=== PATIENT | female | born 1940 | race Caucasian/White ===

== ENCOUNTER → 2019-08-10 12:09 | Outpatient (ROUT) | payer MEDICARE, SELFPAY | PROVIDERS: Visit Provider Internal Medicine | DX: N39.0 Urinary tract infection, site not specified (principal) | CPT/HCPCS: 87086 ==

== ENCOUNTER → 2019-11-22 09:56 | Outpatient (CLI) | payer MEDICARE, SELFPAY ==
--- NOTE | 2019-11-22 10:02 | DI.RAD.S_ITS ---
PROCEDURE: XR FOOT LT MIN 3V INDICATIONS: Lt Foot Pain TECHNIQUE: 3 views of the foot were acquired. COMPARISON: None. FINDINGS: Bones: No fractures or dislocations. No suspicious bony lesions. Soft tissues: No tibiotalar joint effusion. Achilles tendon appears normal. 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 Dictated by: Damon Roberts M.D. on 11/22/2019 at 10:23 Approved by: Damon Roberts M.D. on 11/22/2019 at 10:24
== END ==
PROVIDERS: PCP Internal Medicine; Referring Provider Family Medicine; Visit Provider Family Medicine
DX: M79.672 Pain in left foot (principal); M77.42 Metatarsalgia, left foot; M21.172 Varus deformity, not elsewhere classified, left ankle; M20.12 Hallux valgus (acquired), left foot; M21.612 Bunion of left foot; M19.072 Primary osteoarthritis, left ankle and foot
CPT/HCPCS: 73630

== ENCOUNTER → 2020-01-07 15:18 | Outpatient (CLI) | payer MEDICARE, SELFPAY ==
--- NOTE | 2020-01-07 | DI.MG.S_ITS ---
BILATERAL DIGITAL SCREENING MAMMOGRAM 3D/2D WITH CAD: 01/07/2020 CLINICAL: Routine screening. Comparison is made to exams dated: 05/14/2015 mammogram and 05/10/2014 mammogram - outside location. The tissue of both breasts is predominantly fatty. Current study was also evaluated with a Computer Aided Detection (CAD) system. No significant masses, calcifications, or other findings are seen in either breast. There has been no significant interval change. IMPRESSION: NEGATIVE There is no mammographic evidence of malignancy. A 1 year screening mammogram is recommended. This exam was interpreted at Station ID: [id number]. NOTE: For mammograms, a report in lay terms will be sent to the patient. Approximately 15% of breast malignancies will not be visualized mammographically. In the management of a palpable breast mass, a negative mammogram must not discourage biopsy of a clinically suspicious lesion. Electronically Signed By: Rm Poe M.D., jr/dequan:01/07/2020 16:17:28 letter sent: Normal Exam ACR BI-RADS Category 1: Negative [id number]
== END ==
PROVIDERS: PCP Internal Medicine; Referring Provider Internal Medicine; Visit Provider Internal Medicine
DX: Z12.31 Encounter for screening mammogram for malignant neoplasm of breast (principal); M85.851 Other specified disorders of bone density and structure, right thigh; Z78.0 Asymptomatic menopausal state
CPT/HCPCS: 77063; 77067; 77080

== ENCOUNTER → 2020-06-05 08:35 | Outpatient (CLI) | payer MEDICARE, SELFPAY ==
--- NOTE | 2020-06-05 | DI.RAD.S_ITS ---
PROCEDURE: FL UPPER GI SERIES INDICATIONS: Dysphagia, unspecified COMPARISON: None. 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 No suspicious abdominal calcifications. Visualized solid organ contours appear normal. Bony structures appear unremarkable. Esophagus: Esophageal mucosa is normal on air-contrast views. On single-contrast views, there or numerous spontaneous episodes of tertiary contractions resulting in delayed and retrograde flow of ingested oral contrast. No strictures or extrinsic mass effects. Suggestion of possible small traction diverticulum near the level of the aortic arch in the mid esophagus. Small sliding hiatal hernia. No elicited gastroesophageal reflux. There is normal transit of a calibrated barium tablet through the esophagus. Stomach: The stomach is normally distensible, with normal rugal fold thickness. No mucosal masses or ulcers. Pylorus and duodenal bulb appear normal in morphology. Duodenal folds are normal in thickness as well. IMPRESSION: 1. Multiple spontaneous episodes of tertiary contractions resulting in delayed as well as retrograde flow of ingested contrast. 2. Suggestion of possible small traction esophageal diverticulum in the mid esophagus. No evidence for esophageal strictures or mass lesions. Consider further evaluation with endoscopy. 3. No elicited gastroesophageal reflux. 4. Small sliding hiatal hernia. Dictated by: Blayne Baez M.D. on 06/05/2020 at 15:04 Approved by: Blayne Baez M.D. on 06/05/2020 at 15:08
== END ==
PROVIDERS: PCP Internal Medicine; Referring Provider Internal Medicine; Visit Provider Internal Medicine
DX: R13.10 Dysphagia, unspecified (principal); K44.9 Diaphragmatic hernia without obstruction or gangrene
CPT/HCPCS: 74246

== ENCOUNTER → 2020-09-01 19:27 | Outpatient (ROUT) | payer MEDICARE, SELFPAY ==
[2020-09-01 19:58] LABS: Aspartate Aminotransferase 37 IU/L (14-36); BUN Creatinine Ratio 33.3 (6-22); Blood Urea Nitrogen 24 mg/dL (7-17); Calcium 10.5 mg/dL (8.4-10.2); Carbon Dioxide 26 mmol/L (22-32); Chloride 106 mmol/L (98-107); Cholesterol 164 mg/dL (140-199); Estimated Glomerular Filt Rate > 60.0 mL/min (>60); Glucose 109 mg/dL (80-110); HDL Cholesterol 52 mg/dL (40-60); HEMOLYSIS < 15 (0-50); LDL Cholesterol Calculated 89 mg/dL (<100); Potassium 4.2 mmol/L (3.4-5.1); Sodium 139 mmol/L (137-145); Triglycerides 113 mg/dL (35-150)
== END ==
PROVIDERS: PCP Internal Medicine; Visit Provider Internal Medicine
DX: E78.2 Mixed hyperlipidemia (principal)
CPT/HCPCS: 80048; 80061; 84450

== ENCOUNTER → 2021-12-25 08:48 | Outpatient (CLI) | payer MEDICARE, SELFPAY ==
[2021-12-25 09:56] LABS: Hematocrit 37.5 % (36-46); Hemoglobin 12.6 g/dL (12.0-16.0); Mean Corpuscular HGB Conc 33.6 % (30-36); Mean Corpuscular Hemoglobin 31.4 PG (26-34); Mean Corpuscular Volume 93.2 fL (80-100); Platelet Count 240 X10^3/uL (150-400); Red Blood Cell Count 4.02 X10^6/uL (4.0-5.2); Red Cell Distribution Width 14.1 % (11.6-14.8); White Blood Cell Count 6.1 X10^3/uL (4.5-11.0)
[2021-12-25 10:36] LABS: Alanine Aminotransferase 21 IU/L (<35); Albumin 4.2 g/dL (3.5-5.0); Albumin Globulin Ratio 1.5 (1.0-2.8); Alkaline Phosphatase 132 U/L (38-126); Aspartate Aminotransferase 25 IU/L (14-36); BUN Creatinine Ratio 31.1 (6-22); Bilirubin Total 0.5 mg/dL (0.2-1.3); Blood Urea Nitrogen 23 mg/dL (7-17); Calcium 9.1 mg/dL (8.4-10.2); Carbon Dioxide 26 mmol/L (22-32); Chloride 105 mmol/L (98-107); Cholesterol 255 mg/dL (140-199); Estimated Glomerular Filt Rate > 60 mL/min (>60); Globulin 2.8 g/dL (1.7-4.1); Glucose 108 mg/dL (80-110); HDL Cholesterol 59 mg/dL (40-60); HEMOLYSIS < 15 (0-50); LDL Cholesterol Calculated 181 mg/dL (<100); Potassium 3.9 mmol/L (3.4-5.1); Sodium 139 mmol/L (137-145); Triglycerides 74 mg/dL (35-150)
[2021-12-25 10:53] LABS: Vitamin D 25 Hydroxy (D3) 54.7 ng/mL (30.0-100.0)
[2021-12-25 10:59] LABS: TSH w/ Reflex to FT4 1.67 uIU/mL (0.47-4.68)
== END ==
PROVIDERS: PCP Internal Medicine; Referring Provider Internal Medicine; Visit Provider Internal Medicine
DX: E78.2 Mixed hyperlipidemia (principal); M85.80 Other specified disorders of bone density and structure, unspecified site
CPT/HCPCS: 36415; 80053; 80061; 82306; 84443; 85027

== ENCOUNTER → 2022-12-24 10:48 | Outpatient (CLI) | payer OTHER, SELFPAY ==
--- NOTE | 2022-12-24 10:49 | DI.CT.S_ITS ---
PROCEDURE: CT HEAD/BRAIN WO CON INDICATIONS: cognitive impairment TECHNIQUE: Noncontrast 4.5 mm thick angled axial sections acquired from the foramen magnum to the vertex, with coronal and sagittal reformats. For radiation dose reduction, the following was used: automated exposure control, adjustment of mA and/or kV according to patient size. COMPARISON: None. FINDINGS: Image quality: Excellent. CSF spaces: Basal cisterns are patent. No extra-axial fluid collections. The ventricles are symmetric in size and shape. Brain: No intracranial bleeds or masses. There is cerebral volume loss for age, with resultant ventricular and sulcal prominence. There are periventricular and deep white matter chronic small vessel ischemic changes. Mild infarcts can be seen involving the right basal ganglia and right deep white matter. There is intracranial internal carotid artery atherosclerosis. Skull and face: Calvarium and visualized facial bones appear intact, without suspicious lesions. Incidental note is made of hyperostosis frontalis. This is not considered to be pathologic in a woman of this age. Sinuses: Visualized sinuses and mastoids are clear. IMPRESSION: Note is made of age-appropriate brain parenchymal volume loss and chronic small vessel ischemic changes. 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 Dictated by: Pepito Gómez M.D. on 12/24/2022 at 11:01 Approved by: Pepito Gómez M.D. on 12/24/2022 at 11:02
== END ==
PROVIDERS: PCP Internal Medicine; Referring Provider Internal Medicine; Visit Provider Internal Medicine
DX: R41.0 Disorientation, unspecified (principal); I67.9 Cerebrovascular disease, unspecified; G31.84 Mild cognitive impairment of uncertain or unknown etiology
CPT/HCPCS: 70450

== ENCOUNTER 2023-02-10 13:40 | Emergency (ER) | payer OTHER, SELFPAY ==
[2023-02-10 13:44] VITALS: BP 185/85; PULSE 81; RESP 16; O2SAT 99
[2023-02-10 13:50] VITALS: TEMP 36.6
--- NOTE | 2023-02-10 14:04 | ED_ITS ---
HPI - General Adult General Chief complaint: Altered Mental Status Stated complaint: GLF Time Seen by Provider: 02/10/23 13:45 Source: family () and EMS Mode of arrival: EMS Limitations: other (Dementia) History of Present Illness HPI narrative: Patient is an 82-year-old female has a history of dementia. Patient's states that yesterday she fell out in front of their house. He states that she thinks that she tripped and fell. She was ambulatory afterwards. Had no complaints. A dinner last night without any issues. Slept last night without any issues. Woke up this morning and was fine. A breakfast. Did have some bruising in the right side of her face. He stated that she was sitting in her chair when he went to go stand her up and he stated that she was unresponsive. Would not stand up on her own. This is why he contacted EMS. Here in the emergency department the patient has no specific complaints. She is at her baseline neurologic status. Related Data Home Medications Medication Instructions Recorded Confirmed ascorbic acid (vitamin C) 1,000 mg 1,000 mg PO BID 12/21/21 12/22/22 tablet cholecalciferol (vitamin D3) 125 125 mcg PO Q OTHER DAY 12/21/21 12/22/22 mcg (5,000 unit) capsule coenzyme Q10 100 mg capsule 100 mg PO DAILY 12/21/21 12/22/22 (CoQ-10) cyanocobalamin (vitamin B-12) 1,000 mcg PO DAILY 12/21/21 12/22/22 1,000 mcg capsule ginkgo biloba 1 cap PO BID 12/21/21 12/22/22 lysine 500 mg tablet 500 mg PO DAILY 12/21/21 12/22/22 magnesium citrate 100 mg capsule 400 mg PO DAILY 12/21/21 12/22/22 omega-3 fatty acids 1,000 mg 1,000 mg PO DAILY 12/21/21 12/22/22 capsule selenium 200 mcg tablet 200 mcg PO DAILY 12/21/21 12/22/22 tolterodine 4 mg capsule,extended 4 mg PO DAILY 12/21/21 12/22/22 release 24 hr tumeric 1 cap PO DAILY 12/21/21 12/22/22 vit C 250 mg-vit E 90 mg-zinc 40 1 tab PO BID 12/21/21 12/22/22 mg-copper 1 [id number]-[id number] capsule (PreserVision AREDS-2) zinc 50 mg tablet 50 mg PO DAILY 12/21/21 12/22/22 Previous Rx's Medication Instructions Recorded estradiol 0.01% (0.1 mg/gram) 1 g vaginal 2XW #42.5 grams 12/21/21 vaginal cream omeprazole 20 mg capsule,delayed 20 mg PO DAILY #90 caps 12/21/21 release Allergies Allergy/AdvReac Type Severity Reaction Status Date / Time Penicillins Allergy Severe Anaphylaxis Verified 12/22/22 10:50 Tetanus Vaccines and Toxoid Allergy Severe Anaphylaxis Verified 12/22/22 10:50 morphine Allergy Mild rash Verified 12/22/22 10:50 Review of Systems Review of Systems Narrative: Somewhat limited given the patient's history of dementia Constitutional Comments: Denies headache Cardiovascular Comments: Denies chest pain Respiratory Comments: Denies shortness of breath Gastrointestinal Comments: Denies abdominal pain Musculoskeletal Comments: Denies pain in the arms or legs Patient History Medical History Mild cognitive impairment Elevated blood pressure reading without diagnosis of hypertension Urinary incontinence Menopausal syndrome Osteopenia GERD without esophagitis Mixed hyperlipidemia Social History details: (Christopher), two sons, 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 Smoking Status: Never smoker Smoking Status: Never smoker Substance Use Type: does not use Exam Initial Vital Signs Initial Vital Signs: Vital Signs Pulse Rate 81 02/10/23 13:44 Respiratory Rate 16 02/10/23 13:44 Blood Pressure 185/85 H 02/10/23 13:44 Pulse Oximetry 99 02/10/23 13:44 Oxygen Delivery Method Room Air 02/10/23 13:44 Const General: comfortable and No ill appearing HENMT Face and sinus: ecchymosis on the right and no lacerations Resp Effort & Inspection: normal respiratory effort Cardio Rate: regular rate GI Inspection: normal to inspection and non-distended Palpation: soft Skin Other: Bruising to the right side of the face. Neuro Other: Patient is alert to person and place but does not know the year Extrem Other: No gross deformities. Patient appears to have no discomfort with movement of the upper and lower extremities. Course Orders Ordered: ED Orders 02/10/23 14:04 CT cervical spine wo con Stat CT facial bones wo con Stat CT head/brain wo con Stat Vital Signs Vital signs: Vital Signs - 8 hr 02/10/23 13:44 02/10/23 13:50 Temperature 97.9 F Pulse Rate 81 Respiratory Rate 16 Blood Pressure 185/85 H Pulse Oximetry 99 Oxygen Delivery Method Room Air Medical Decision Making Imaging Data CT scan - head: Radiologist's Impression: PROCEDURE: CT HEAD/BRAIN WO CON INDICATIONS: Fall with history of dementia TECHNIQUE: Noncontrast 4.5 mm thick angled axial sections acquired from the foramen magnum to the vertex, with coronal and sagittal reformats. For radiation dose reduction, the following was used: automated exposure control, adjustment of mA and/or kV according to patient size. COMPARISON: [facility], CT, CT HEAD/BRAIN WO CON, 12/24/2022, 11:08. FINDINGS: Image quality: Excellent. CSF spaces: Basal cisterns are patent. No extra-axial fluid collections. The ventricles are symmetric in size and shape. Brain: No intracranial bleeds or masses. There is cerebral volume loss for a ge, with resultant ventricular and sulcal prominence. There are moderate to severe periventricular and deep white matter chronic small vessel ischemic changes. Right basal ganglia lacunar infarctions. There is intracranial internal carotid artery atherosclerosis. Skull and face: Calvarium and visualized facial bones appear intact, without suspicious lesions. Sinuses: Visualized sinuses and mastoids are clear. IMPRESSION: 1. No acute intracranial process. 2. Moderate to severe small vessel ischemic change and old basal ganglia infarcts. CT face: Radiologist's Impression: PROCEDURE: CT FACIAL BONES WO CON INDICATIONS: Fall with right-sided facial contusions TECHNIQUE: Noncontrast 2.5 mm thick axial images acquired from the mandible through the frontal sinuses, with coronal and sagittal reformatting. For radiation dose reduction, the following was used: automated exposure control, adjustment of mA and/or kV according to patient size. COMPARISON: None. FINDINGS: Image quality: Patient motion artifact. Bones and teeth: Orbital palmer are intact. Sinus palmer show no fracture or deformity. Nasal bones and septum are intact. Visualized portions of the mandible demonstrate no fractures or subluxation. Zygomatic arches are intact. Pterygoid plates are intact. Visualized portions of the skull base and auditory canals are intact. Sinuses: Remote extensive paranasal sinus surgery with bilateral medial nasal antral windows, middle turbinate resections, and subtotal bilateral ethmoidectomies. Paranasal sinuses are aerated, without fluid levels, mucosal thickening, or mucoceles. Mastoid air cells are aerated. Soft tissues: No edema, masses, or fluid collections. No enlarged lymph nodes. No soft tissue lacerations or debris. Vascular: Visualized vascular structures appear normal in the absence of contrast. Bony vascular foramina and canals are intact. IMPRESSION: Patient motion artifact is present. There are no facial bone fractures or mandibular fractures identified. CT - cervical spine: Radiologist's Impression: PROCEDURE: CT CERVICAL SPINE WO CON INDICATIONS: Fall with history of dementia TECHNIQUE: Noncontrast 3 mm thick sections acquired from the skull base to the T4 level. Sagittal and coronal reformats were then constructed. For radiation dose reduction, the following was used: automated exposure control, adjustment of mA and/or kV according to patient size. COMPARISON: None. FINDINGS: Image quality: Excellent. Bones: No fractures or dislocations. Visualized superior ribs are intact. Cervical spondylosis. Soft tissues: Prevertebral soft tissues are normal in thickness. No paravertebral hematomas. No apical pneumothoraces. IMPRESSION: No acute cervical fracture or dislocation. MDM Narrative Medical decision making narrative: Patient does have contusion of the right side of her face. CT scans are unremarkable. She is no apparent discomfort with movement of the arms and legs. I did have a discussion with her regarding avoidance of falling. No indication to change any medications. Will discharge patient home. Discharge Plan Departure Patient Disposition: Home Clinical Impression: Contusion of face Instructions: How to Prevent Falls Activity Restrictions/Additional Instructions: Zehra can continue to take all of her medications as directed. She can return to the emergency department for any new or worsening symptoms Prescriptions: No Action tolterodine 4 mg capsule,extended release 24hr 4 mg PO DAILY lysine 500 mg tablet 500 mg PO DAILY omega-3 fatty acids 1,000 mg capsule 1,000 mg PO DAILY zinc 50 mg tablet 50 mg PO DAILY selenium 200 mcg tablet 200 mcg PO DAILY cyanocobalamin (vitamin B-12) 1,000 mcg capsule 1,000 mcg PO DAILY PreserVision AREDS-2 250-90-40-1 mg capsule 1 tab PO BID tumeric 1 cap PO DAILY ascorbic acid (vitamin C) 1,000 mg tablet 1,000 mg PO BID cholecalciferol (vitamin D3) 125 mcg (5,000 unit) capsule 125 mcg PO Q OTHER DAY coenzyme Q10 [CoQ-10] 100 mg capsule 100 mg PO DAILY ginkgo biloba 1 cap PO BID magnesium citrate 100 mg capsule 400 mg PO DAILY estradiol 0.01 % (0.1 mg/gram) cream 1 g vaginal 2XW Qty: 42.5 3RF omeprazole 20 mg capsule,delayed release(DR/EC) 20 mg PO DAILY Qty: 90 3RF Referrals: Curt Enriquez MD [Primary Care Provider] - Stand Alone Forms: Patient Portal/API
== END 2023-02-10 15:43 | disposition home or self-care (01) ==
PROVIDERS: Emergency Provider Emergency Medicine; PCP Internal Medicine
DX: S00.83XA Contusion of other part of head, initial encounter (principal); W01.0XXA Fall on same level from slipping, tripping and stumbling without subsequent striking against object, initial encounter; F03.90 Unspecified dementia, unspecified severity, without behavioral disturbance, psychotic disturbance, mood disturbance, and anxiety
CPT/HCPCS: 70450; 70486; 72125; 99281; 99284

== ENCOUNTER → 2023-03-09 10:34 | Outpatient (CLI) | payer OTHER, SELFPAY ==
[2023-03-09 12:26] LABS: Vitamin B12 931 pg/mL (239-931)
== END ==
PROVIDERS: PCP Internal Medicine; Referring Provider Internal Medicine; Visit Provider Internal Medicine
DX: E53.8 Deficiency of other specified B group vitamins (principal)
CPT/HCPCS: 36415; 82607

== ENCOUNTER 2024-05-06 12:00 | Emergency (ER) | payer MEDICARE, SELFPAY ==
[2024-05-06] VITALS (17 sets, daily range): BP systolic 136–190; BP diastolic 65–93; PULSE 70–95; RESP 14–29; TEMP 36.1; O2SAT 92–100
--- NOTE | 2024-05-06 12:23 | DI.RAD.S_ITS ---
PROCEDURE: XR CHEST 1V INDICATIONS: chest pain TECHNIQUE: One view of the chest was acquired. COMPARISON: None. FINDINGS: Surgical changes and devices: None. Lungs and pleura: The patient is rotated. Lungs are clear. No pleural effusions or pneumothorax. Mediastinum: Hiatal hernia. Heart size is normal. Bones and chest wall: No suspicious bony lesions. Overlying soft tissues appear unremarkable. IMPRESSION: No acute cardiopulmonary abnormality is seen. Dictated by: Steven Poe M.D. on 05/06/2024 at 12:06 Approved by: Steven Poe M.D. on 05/06/2024 at 12:07
--- NOTE | 2024-05-06 12:23 | EKG_ITS ---
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
--- NOTE | 2024-05-06 13:20 | DI.CT.S_ITS ---
PROCEDURE: CT ANGIO HEAD AND NECK INDICATIONS: resolved unresponsiveness episode, resolved TECHNIQUE: After the administration of intravenous contrast, 1 mm thick sections acquired from the aortic arch through the Eek of Means. 3-dimensional lmiobip-jsdayixgk-khgxdkzbqk (MIP) and/or volume rendering reformats were acquired of the central intracranial vasculature and neck separately. For radiation dose reduction, the following was used: automated exposure control, adjustment of mA and/or kV according to patient size. COMPARISON: None. FINDINGS: Image quality: Diagnostic. BRAIN: CSF spaces: Ventricles are normal in size and shape. Basal cisterns are patent. No extra-axial fluid collections. Brain: No significant abnormality of the brain can be seen. Skull and face: Calvarium and facial bones appear intact, without suspicious lesions. Orbits appear normal. Sinuses: Sinuses and mastoids are clear. HEAD CT ANGIOGRAPHY: Anterior circulation: Intracranial internal carotid arteries are normal in size and flow. The flow within the paired anterior cerebral arteries is normal and symmetric. The flow within the middle cerebral arteries is normal and symmetric. The anterior communicating artery is seen. No aneurysms are seen. Posterior circulation: Visualized portions of the vertebral arteries demonstrate normal caliber, and join to form a normal appearing basilar artery. Flow within the posterior cerebral arteries is normal and symmetric. No aneurysms are seen. NECK CT ANGIOGRAPHY: Carotid system: The great vessels demonstrate a conventional anatomy as they arise from the aortic arch. The origins of the common carotid arteries appear patent. The common carotid arteries demonstrate normal caliber and courses. The bifurcation regions are both widely patent. The internal carotid arteries demonstrate normal calibers and courses. Posterior circulation: The origins of the vertebral arteries both appear widely patent. The more superior extracranial portions of both vertebral arteries also demonstrate normal courses and calibers. They join to form a normal appearing basilar artery. Soft tissues: Visualized neck soft tissues demonstrate no suspicious abnormalities. Bones: No suspicious bony lesions. Visualized cervical spine appears normally aligned. IMPRESSION: No significant intracranial arterial abnormality is seen. No significant abnormality is seen within the arteries of the neck. Any quantitative measurements of stenosis were performed using NASCET criteria. Dictated by: Steven Poe M.D. on 05/06/2024 at 14:04 Approved by: Steven Poe M.D. on 05/06/2024 at 14:06
--- NOTE | 2024-05-06 13:20 | PC.NURSE ---
Pt's reported that patient has baseline confusion d/t dementia and has had decreased ambulation at home. Today she was sitting up in a chair looking outside. Her endorses pt having her eyes half closed and not responding. He tried to get her attention and states nothing was going on. He called and she was evaluated at home. A fingerstick blood sugar was obtained but does not recall what the result was. When arrived pt was responsive and back to her baseline. Pt continues to act at her baseline while in department. She does state It feels weird. Just not right. She has no chest pain. No SOB. No nausea. No abdominal pain. She had a fall last week per spouse.
--- NOTE | 2024-05-06 13:20 | DI.CT.S_ITS ---
PROCEDURE: CT HEAD/BRAIN WO CON INDICATIONS: alt MSE, better, ?TIA TECHNIQUE: Noncontrast 4.5 mm thick angled axial sections acquired from the foramen magnum to the vertex, with coronal and sagittal reformats. For radiation dose reduction, the following was used: automated exposure control, adjustment of mA and/or kV according to patient size. COMPARISON: [facility], CT, CT HEAD/BRAIN WO CON, 02/10/2023, 14:11. FINDINGS: Image quality: Diagnostic. CSF spaces: Basal cisterns are patent. No extra-axial fluid collections. Ventricles are normal in size and shape. Brain: No midline shift. No intracranial masses or hemorrhage. Diffuse parenchymal volume loss with expansion of the CSF containing spaces. Multiple periventricular white matter hypodensities consistent with chronic microvascular ischemic disease. Oscar-white matter interface is normal. Sequela of remote left occipital lobe stroke with changes of encephalomalacia, new from 2022 Skull and face: Calvarium and visualized facial bones are intact, without suspicious lesions. Sinuses: Visualized sinuses and mastoids are clear. IMPRESSION: No intracranial hemorrhage. Left occipital encephalomalacia consistent with remote stroke Sequela of microvascular ischemic disease. Dictated by: Steven Poe M.D. on 05/06/2024 at 14:00 Approved by: Steven Poe M.D. on 05/06/2024 at 14:04
--- NOTE | 2024-05-06 13:26 | ED_ITS ---
HPI - General Adult General Chief complaint: Syncope Stated complaint: Eval after 9-11 called this am; bearly breathing Time Seen by Provider: 05/06/24 12:23 Source: patient and family Mode of arrival: Wheelchair History of Present Illness HPI narrative: (history predominantly from Christopher Powers at bedside) 83-year-old female with history of dementia, lives at home with , last known well about 11:00 a.m. this morning, when left her sitting near the window in a chair, briefly left the area then returned to see her in the opposite chair at same table near the window, but seemed slumped in position, no obvious trauma/fall heard or suspected, tried to gently awakened patient who seemed unresponsive, he called 911, EMS arrived and checked sugar, no sugar given oral/IV, she was back to her baseline by/before time of EMS arrival, was not transported by EMS. Arrived by private vehicle, driven by for further evaluation. No shaking activity, history of seizures known, incontinence of urine or stool at the time of episode though has happened in the past. not sure if patient had any prior stroke. Patient takes no blood thinners, no antiplatelets. Related Data Home Medications Medication Instructions Recorded Confirmed ascorbic acid (vitamin C) 1,000 mg 1,000 mg PO BID 12/21/21 05/25/23 tablet cholecalciferol (vitamin D3) 125 125 mcg PO Q OTHER DAY 12/21/21 05/25/23 mcg (5,000 unit) capsule coenzyme Q10 100 mg capsule 100 mg PO DAILY 12/21/21 05/25/23 (CoQ-10) cyanocobalamin (vitamin B-12) 1,000 mcg PO DAILY 12/21/21 05/25/23 1,000 mcg capsule ginkgo biloba 1 cap PO BID 12/21/21 05/25/23 lysine 500 mg tablet 500 mg PO DAILY 12/21/21 05/25/23 magnesium citrate 100 mg capsule 400 mg PO DAILY 12/21/21 05/25/23 omega-3 fatty acids 1,000 mg 1,000 mg PO DAILY 12/21/21 05/25/23 capsule selenium 200 mcg tablet 200 mcg PO DAILY 12/21/21 05/25/23 vit C 250 mg-vit E 90 mg-zinc 40 1 tab PO BID 12/21/21 05/25/23 mg-copper 1 iz-wuowyo-agomsr capsule (PreserVision AREDS-2) zinc 50 mg tablet 50 mg PO DAILY 12/21/21 05/25/23 turmeric 1 cap PO DAILY 03/09/23 05/25/23 Previous Rx's Medication Instructions Recorded omeprazole 20 mg capsule,delayed 20 mg PO DAILY #90 caps 12/21/21 release Disabled Parking Permit 1 ea Not Applicable DAILY #1 ea 05/25/23 cefdinir 300 mg capsule 300 mg PO BID 10 days #20 caps 05/06/24 cefdinir 300 mg capsule 300 mg PO BID 7 days #14 caps 05/06/24 Allergies Allergy/AdvReac Type Severity Reaction Status Date / Time Penicillins Allergy Severe Anaphylaxis Verified 05/25/23 07:43 Tetanus Vaccines and Toxoid Allergy Severe Anaphylaxis Verified 05/25/23 07:43 morphine Allergy Mild rash Verified 05/25/23 07:43 Patient History Medical History 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 HEAD: Atraumatic. Normocephalic. EYES: Pupils equal round and reactive. Extraocular motions intact. No scleral icterus. No injection or drainage. ENT: Nose without bleeding, purulent drainage. Throat without erythema, tonsillar hypertrophy or exudate. Airway patent. NECK: Trachea midline. Non tender CARDIOVASCULAR: Regular rate and rhythm without murmurs, gallops, or rubs. RESPIRATORY: Clear to auscultation. Breath sounds equal bilaterally. No wheezes, rales, or rhonchi. GASTROINTESTINAL: Abdomen soft, non-tender, nondistended. EXTREMITIES: No edema or joint tenderness. BACK: Nontender without deformity or crepitance. No flank tenderness. NEURO: AOx3. folder and notcher intact. Motor 5/5 upper and lower extermities. Some rambling answers to questions but generally quite clear speech and cooperative, with frequent smiling. at bedside states that patient seems at her baseline MSE. SKIN: No rash or erythema of visible areas Initial Vital Signs Initial Vital Signs: Vital Signs Temperature 97.0 F L 05/06/24 12:10 Pulse Rate 75 05/06/24 12:10 Respiratory Rate 16 05/06/24 12:10 Blood Pressure 149/72 H 05/06/24 12:10 Pulse Oximetry 98 05/06/24 12:10 Oxygen Delivery Method Room Air 05/06/24 12:10 Course Orders Ordered: ED Orders 05/06/24 13:15 Complete Blood Count AUTO DIFF Stat Comprehensive Metabolic Panel Stat Lipase Stat Magnesium Stat NT-proBNP (BNP-Adult 18+) Stat PTT Partial Thromboplastin Dhruv Stat Prothrombin Time INR Stat Troponin & CK Cardiac Panel Stat 05/06/24 13:20 CT angio head and neck Stat CT head/brain wo con Stat 05/06/24 14:18 Urinalysis and Microscopic Stat Urine Culture Stat 05/06/24 16:00 Troponin I Stat Discontinued Medications Aspirin (Aspirin 81 Mg Chew Tab) 324 mg PO NOW ONE Stop: 05/06/24 12:24 Last Admin: 05/06/24 13:34 Dose: Not Given Documented By: JEANETTE Aspirin (Aspirin 81 Mg Chew Tab) 324 mg PO NOW ONE Stop: 05/06/24 16:40 Last Admin: 05/06/24 17:09 Dose: 324 mg Documented By: JEANETTE Cefdinir (Cefdinir 300 Mg Capsule) 300 mg PO NOW ONE Stop: 05/06/24 15:00 Last Admin: 05/06/24 15:16 Dose: 300 mg Documented By: JEANETTE Vital Signs Vital signs: Vital Signs - 8 hr 05/06/24 14:06 05/06/24 14:22 05/06/24 14:22 Pulse Rate 70 72 Respiratory Rate 14 19 Blood Pressure 159/80 H Pulse Oximetry 92 97 Oxygen Delivery Method 05/06/24 14:30 05/06/24 14:30 05/06/24 15:00 Pulse Rate 70 Respiratory Rate 19 Blood Pressure 168/79 H 184/81 H Pulse Oximetry 100 Oxygen Delivery Method Room Air 05/06/24 15:00 05/06/24 15:30 05/06/24 15:31 Pulse Rate 72 76 Respiratory Rate 18 Blood Pressure 190/84 H Pulse Oximetry 99 Oxygen Delivery Method 05/06/24 15:31 05/06/24 16:00 05/06/24 16:30 Pulse Rate 74 83 86 Respiratory Rate 24 14 21 Blood Pressure Pulse Oximetry 95 Oxygen Delivery Method 05/06/24 17:00 05/06/24 17:29 Pulse Rate 89 95 H Respiratory Rate 16 Blood Pressure 158/93 H Pulse Oximetry 98 Oxygen Delivery Method Room Air Medical Decision Making Lab Data Lab results reviewed: Yes I reviewed the patient's lab results. Lab results narrative: White blood cell count 8600, hemoglobin 13.2, platelets adequate. Glucose 144. BUN 22 with creatinine 0.95. Electrolytes unremarkable. Serum CO2 normal. Liver functions unremarkable. BNP not elevated. Troponin negative/unmeasurable. 05/06/24 13:15 05/06/24 13:15 Labs: Lab Results 05/06/24 05/06/24 05/06/24 Range/Units 13:15 14:18 16:00 WBC 8.6 (4.5-11.0) X10^3/uL RBC 4.28 (4.0-5.2) X10^6/uL Hgb 13.2 (12.0-16.0) g/dL Hct 40.0 (36-46) % MCV 93.4 (80-100) fL MCH 30.9 (26-34) PG MCHC 33.1 (30-36) % RDW 14.1 (11.6-14.8) % Plt Count 262 (150-400) X10^3/uL Neut % (Auto) 67.9 (50-75) % Lymph % (Auto) 23.2 L (25-40) % [place] % (Auto) 8.1 (3-14) % Eos % (Auto) 0.4 L (2-4) % Baso % (Auto) 0.4 (0-2) % Neut # (Auto) 5800 (5940-0571) /uL Lymph # (Auto) 2000 (2084-5192) /uL [place] # (Auto) 700 (0-900) /uL Eos # (Auto) 0 (0-450) /uL Baso # (Auto) 0 (0-100) /uL PT 11.4 (9.4-12.5) SECONDS INR 1.0 (0.9-1.3) APTT 28 (25.1-36.5) SECONDS Sodium 139 (137-145) mmol/L Potassium 3.9 (3.4-5.1) mmol/L Chloride 107 (98-107) mmol/L Carbon Dioxide 23 (22-32) mmol/L BUN 22 H (7-17) mg/dL Creatinine 0.95 (0.52-1.04) mg/dL Estimated GFR 59 L (>60) mL/min BUN/Creatinine Ratio 23.2 H (6-22) Glucose 144 H (80-110) mg/dL Calcium 9.7 (8.4-10.2) mg/dL Magnesium 2.0 (1.6-2.3) mg/dL Total Bilirubin 0.6 (0.2-1.3) mg/dL AST 35 (14-36) IU/L ALT 33 (<35) IU/L Alkaline Phosphatase 91 (38-126) U/L Total Creatine Kinase 39 (30-135) U/L Troponin I < 0.012 < 0.012 (0.01-0.034) ng/mL NT-Pro-B Natriuret Pep 117 (<450) pg/mL Total Protein 7.1 (6.3-8.2) g/dL Albumin 4.2 (3.5-5.0) g/dL Globulin 2.9 (1.7-4.1) g/dL Albumin/Globulin Ratio 1.4 (1.0-2.8) Lipase 80 (23-300) U/L Urine Color Yellow Urine Appearance Cloudy Urine pH 6.0 (4.5-8.0) Ur Specific [place] 1.015 (1.000-1.035) Urine Protein Negative (Negative) Urine Glucose (UA) Negative (Negative) g/dL Urine Ketones Negative (NEGATIVE) Urine Occult Blood Negative (Negative) Urine Nitrate Positive H (Negative) Urine Bilirubin Negative (NEGATIVE) Urine Urobilinogen 0.2 (0.2) E.U./dL Ur Leukocyte Esterase Trace H (NEGATIVE) Urine RBC None seen (0-5/HPF) Urine WBC 5-10/hpf H (0-5/HPF) Ur Squamous Epith Cells 1-5 /hpf (0-5/HPF) Urine Bacteria Many (>30) H (None) Ur Culture Indicated? Specimen cultured Vol Urine Centrifuged 10ml (spun) Imaging Data Chest x-ray: Radiologist's Impression: Close Head CT (Signed) Steven Poe 05/06/24 Head/Neck CTA (Signed) Steven Poe - 05/06/24 Chest X-Ray (Signed) Steven Poe - 05/06/24 Launch?Image [address] [address] XRay Report Signed Patient: Zehra Schumacher MR#: [id number] : 1940 Acct:[id number] Age/Sex: 83 / F Date of Service: 05/06/24 Loc: ED Accession Number: [id number] Procedure: XR chest 1V Ordering Provider: Orlin Paige MD PROCEDURE: XR CHEST 1V INDICATIONS: chest pain TECHNIQUE: One view of the chest was acquired. COMPARISON: None. FINDINGS: Surgical changes and devices: None. Lungs and pleura: The patient is rotated. Lungs are clear. No pleural effusions or pneumothorax. Mediastinum: Hiatal hernia. Heart size is normal. Bones and chest wall: No suspicious bony lesions. Overlying soft tissues appear unremarkable. IMPRESSION: No acute cardiopulmonary abnormality is seen. Dictated by: Steven Poe M.D. on 05/06/2024 at 12:06 Approved by: Steven Poe M.D. on 05/06/2024 at 12:07 CT scan - head: Radiologist's Impression: [address] [address] [address] Scan Report Signed Patient: Zehra Schumacher MR#: [id number] : 1940 Acct:[id number] Age/Sex: 83 / F Date of Service: 05/06/24 Loc: ED Accession Number: [id number] Procedure: CT head/brain wo con Ordering Provider: Orlin Paige MD PROCEDURE: CT HEAD/BRAIN WO CON INDICATIONS: alt MSE, better, ?TIA TECHNIQUE: Noncontrast 4.5 mm thick angled axial sections acquired from the foramen magnum to the vertex, with coronal and sagittal reformats. For radiation dose reduction, the following was used: automated exposure control, adjustment of mA and/or kV according to patient size. COMPARISON: [facility], CT, CT HEAD/BRAIN WO CON, 02/10/2023, 14:11. FINDINGS: Image quality: Diagnostic. CSF spaces: Basal cisterns are patent. No extra-axial fluid collections. Ventricles are normal in size and shape. Brain: No midline shift. No intracranial masses or hemorrhage. Diffuse parenchymal volume loss with expansion of the CSF containing spaces. Multiple periventricular white matter hypodensities consistent with chronic microvascular ischemic disease. Oscar-white matter interface is normal. Sequela of remote left occipital lobe stroke with changes of encephalomalacia, new from 2022 Skull and face: Calvarium and visualized facial bones are intact, without suspicious lesions. Sinuses: Visualized sinuses and mastoids are clear. IMPRESSION: No intracranial hemorrhage. Left occipital encephalomalacia consistent with remote stroke Sequela of microvascular ischemic disease. Dictated by: Steven Poe M.D. on 05/06/2024 at 14:00 Approved by: Steven Poe M.D. on 05/06/2024 at 14:04 CTA - brain/neck: Radiologist's Impression: Close Head CT (Signed) Steven Poe - 05/06/24 Head/Neck CTA (Signed) Steven Poe - 05/06/24 Chest X-Ray (Signed) Steven Poe - 05/06/24 [place] [address] CT Scan Report Signed Patient: Zehra Schumacher MR#: [id number] : 1940 Acct:[id number] Age/Sex: 83 / F Date of Service: 05/06/24 Loc: ED Accession Number: [id number] Procedure: CT angio head and neck Ordering Provider: Orlin Paige MD PROCEDURE: CT ANGIO HEAD AND NECK INDICATIONS: resolved unresponsiveness episode, resolved TECHNIQUE: After the administration of intravenous contrast, 1 mm thick sections acquired from the aortic arch through the [place] of Means. 3-dimensional jjbrvun-sgxmnkmra-poczobjokm (MIP) and/or volume rendering reformats were acquired of the central intracranial vasculature and neck separately. For radiation dose reduction, the following was used: automated exposure control, adjustment of mA and/or kV according to patient size. COMPARISON: None. FINDINGS: Image quality: Diagnostic. BRAIN: CSF spaces: Ventricles are normal in size and shape. Basal cisterns are patent. No extra-axial fluid collections. Brain: No significant abnormality of the brain can be seen. Skull and face: Calvarium and facial bones appear intact, without suspicious lesions. Orbits appear normal. Sinuses: Sinuses and mastoids are clear. HEAD CT ANGIOGRAPHY: Anterior circulation: Intracranial internal carotid arteries are normal in size and flow. The flow within the paired anterior cerebral arteries is normal and symmetric. The flow within the middle cerebral arteries is normal and symmetric. The anterior communicating artery is seen. No aneurysms are seen. Posterior circulation: Visualized portions of the vertebral arteries demonstrate normal caliber, and join to form a normal appearing basilar artery. Flow within the posterior cerebral arteries is normal and symmetric. No aneurysms are seen. NECK CT ANGIOGRAPHY: Carotid system: The great vessels demonstrate a conventional anatomy as they arise from the aortic arch. The origins of the common carotid arteries appear patent. The common carotid arteries demonstrate normal caliber and courses. The bifurcation regions are both widely patent. The internal carotid arteries demonstrate normal calibers and courses. Posterior circulation: The origins of the vertebral arteries both appear widely patent. The more superior extracranial portions of both vertebral arteries also demonstrate normal courses and calibers. They join to form a normal appearing basilar artery. Soft tissues: Visualized neck soft tissues demonstrate no suspicious abnormalities. Bones: No suspicious bony lesions. Visualized cervical spine appears normally aligned. IMPRESSION: No significant intracranial arterial abnormality is seen. No significant abnormality is seen within the arteries of the neck. Any quantitative measurements of stenosis were performed using NASCET criteria. Dictated by: Steven Poe M.D. on 05/06/2024 at 14:04 Approved by: Steven Poe M.D. on 05/06/2024 at 14:06 ECG Data Attestation: I personally reviewed and interpreted this ECG as follows: Interpretation: Normal sinus rhythm with rate of 75. No obvious ST segment elevation or depression changes, some motion artifact however noted in multiple leads. [place] 186, QRS 72, QTC 406. MDM Narrative Medical decision making narrative: 83-year-old female with history of dementia, had a few minutes of unresponsiveness at home per , who states that patient seems back to her baseline mental status by/before EMS arrival. Afebrile, sirs screen negative. Alert and cooperative and quite pleasant, somewhat random speech, that states is her baseline. Nonfocal neuro exam otherwise. Glucose normal. Screening labs pending. Discussed workup with patient/, they would like to proceed with CT imaging. CT head noncontrast study ordered, CTA head and neck vessels ordered if GFR favorable. Labs pending. DDx consider TIA, transient bradyarhythmia/tachyarhythmia, hypoglycemia, atypical seizure, other. Renal function adequate. CTA head and neck vessels, CT head noncontrast, studies to be performed. EKG without obvious ischemic changes, some motion artifact. Troponin negative. Screening serum labs otherwise unremarkable. Urinalysis shows inflammatory infectious changes, presence of many bacteria, urine culture ordered per protocol. History of penicillin allergy. can not recall details of penicillin allergy. Not obviously known to to have tolerance or problems with cephalosporins. We discussed Cipro/Levaquin antibiotics, possible side effects of fluoroquinolones, avoid for now. He would like to try a 3rd generation cephalosporin when we discussed options, oral dose cefdinir given, prescription sent for 7 day course. Patient observed further for interval 2nd troponin, also negative. No obvious reaction to oral cephalosporin. CT head study showed old encephalomalacia changes. See radiology report. CT angiogram head and neck vessels, without thrombosis or significant narrowing, no dissection changes. See radiology report. Consider admission and/or further workup for possible TIA/syncopal episode of unclear etiology. Workup might include telemetry monitoring overnight, echocardiogram, MRI brain. MRI of the brain not available today Tuesday, but could be obtained tomorrow if patient admitted overnight for example. Discussion with patient/family. declines for now, declines admission. Further workup as an outpatient for now. Home with family. Prescription for further oral antibiotics cefdinir sent to her pharmacy. Return precautions discussed. Discharge Plan Departure Patient Disposition: Home Clinical Impression: Episode of syncope, Urinary tract infection, History of dementia Instructions: DI for Syncope in Adults (Fainting), DI for Urinary Tract Infection (UTI) Activity Restrictions/Additional Instructions: Ms. Schumacher, You had brief episode of unresponsiveness today of unclear cause, reported by your earlier this afternoon, EMS responded but no transport at that time, arriving having been driven by her , resolved symptoms at the time of EMS arrival. Screening labs here unremarkable. History of dementia noted, reportedly back to baseline. EKG and blood testing not suggestive of heart attack. Electrolytes unremarkable. No obvious facial or other trauma from today on examination. CT scanning head without contrast showed an old area of encephalomalacia that might have happened from an old stroke at some point in the past, but no acute changes, per Radiology report. It is possible to have a new stroke with negative CT scan of the brain, sometimes only seen on repeat MRI of the brain. However there is no MRI available at this time this Tuesday weekend day here. CT angiogram of the head and neck vessels showed no acute changes, no blockages, no narrowing of the vessels requiring any interventions, per Radiology report. Urinalysis suspicious for infection. We did discuss various antibiotic choices. History of penicillin allergy with unclear remote reaction. We discussed ciprofloxacin/levofloxacin antibiotics but they can cause tendon problems, confusion, mental status changes, we will avoid that fluoroquinolones class of antibiotics for now. Loss of resistance known to sulfa type antibiotics. We will give oral cefdinir antibiotic for now, a 3rd generation cephalosporin, less likely to have cross reaction with persons having penicillin allergies, though this is possible. First dose of cefdinir antibiotic given in the emergency department, further course of antibiotic sent to your pharmacy. Take antibiotics as directed. Drink plenty of fluids. We did discuss further workup of your transient unresponsiveness episode. This could represent pre stroke/mini stroke, also called a transient ischemic attack. Symptoms might have also happened from a transient cardiac event, such as a slow or racing heart rate, though nothing was noticed abnormal about the rate or rhythm during multiple hours observed here in the emergency department. You could have further observation such as cardiac heart telemetry monitoring overnight observation in the hospital, echocardiogram ultrasound of your heart, MRI of the brain not available now but would be available tomorrow. Admission and all these potential studies were declined for now. No blood thinners or antiplatelets at this time. Consider oral aspirin once daily for now. First dose given in the emergency department. Cyia-uws-aamkmrz aspirin can be taken 1 tablet daily. This is intended to hopefully help prevent future stroke problems. Your and you felt that you would not want further testing as an inpatient for now. Consider further observation and testing as an outpatient as needed for now. Consider recheck of symptoms with your regular doctor in the next 2 days, and also to check results of urine culture sent today. Return to this/nearest emergency department for any change worsening symptoms or any concerns prior. Take your other chronic medications as directed. Thank you for letting our team take care of you today. Prescriptions: New cefdinir 300 mg capsule 300 mg PO BID 10 Days Qty: 20 0RF cefdinir 300 mg capsule 300 mg PO BID 7 Days Qty: 14 0RF No Action lysine 500 mg tablet 500 mg PO DAILY omega-3 fatty acids 1,000 mg capsule 1,000 mg PO DAILY zinc 50 mg tablet 50 mg PO DAILY selenium 200 mcg tablet 200 mcg PO DAILY cyanocobalamin (vitamin B-12) 1,000 mcg capsule 1,000 mcg PO DAILY PreserVision AREDS-2 250-90-40-1 mg capsule 1 tab PO BID ascorbic acid (vitamin C) 1,000 mg tablet 1,000 mg PO BID cholecalciferol (vitamin D3) 125 mcg (5,000 unit) capsule 125 mcg PO Q OTHER DAY coenzyme Q10 [CoQ-10] 100 mg capsule 100 mg PO DAILY ginkgo biloba 1 cap PO BID magnesium citrate 100 mg capsule 400 mg PO DAILY omeprazole 20 mg capsule,delayed release(DR/EC) 20 mg PO DAILY Qty: 90 3RF turmeric 1 cap PO DAILY Disabled Parking Permit 1 ea Not Applicable DAILY Qty: 1 0RF Referrals: Crut Enriquez MD [Primary Care Provider] - Stand Alone Forms: Patient Portal/API/Survey
[2024-05-06 13:28] LABS: Add Manual Diff / Slide Review NO; Basophils Absolute Auto 0 /uL (0-100); Basophils Percent Auto 0.4 % (0-2); Eosinophils Absolute Auto 0 /uL (0-450); Eosinophils Percent Auto 0.4 % (2-4); Hemoglobin 13.2 g/dL (12.0-16.0); Lymphocytes Absolute Auto 2000 /uL (1100-4500); Lymphocytes Percent Auto 23.2 % (25-40); Mean Corpuscular HGB Conc 33.1 % (30-36); Mean Corpuscular Hemoglobin 30.9 PG (26-34); Mean Corpuscular Volume 93.4 fL (80-100); Monocytes Absolute Auto 700 /uL (0-900); Monocytes Percent Auto 8.1 % (3-14); Neutrophils Absolute Auto 5800 /uL (1500-7000); Neutrophils Percent Auto 67.9 % (50-75); Platelet Count 262 X10^3/uL (150-400); Red Blood Cell Count 4.28 X10^6/uL (4.0-5.2); Red Cell Distribution Width 14.1 % (11.6-14.8); White Blood Cell Count 8.6 X10^3/uL (4.5-11.0)
[2024-05-06 13:36] LABS: Prothrombin Time 11.4 SECONDS (9.4-12.5)
[2024-05-06 13:39] LABS: PTT Partial Thromboplastin Tim 28 SECONDS (25.1-36.5)
[2024-05-06 13:41] LABS: Alanine Aminotransferase 33 IU/L (<35); Albumin 4.2 g/dL (3.5-5.0); Albumin Globulin Ratio 1.4 (1.0-2.8); Alkaline Phosphatase 91 U/L (38-126); Aspartate Aminotransferase 35 IU/L (14-36); BUN Creatinine Ratio 23.2 (6-22); Bilirubin Total 0.6 mg/dL (0.2-1.3); Blood Urea Nitrogen 22 mg/dL (7-17); Calcium 9.7 mg/dL (8.4-10.2); Carbon Dioxide 23 mmol/L (22-32); Chloride 107 mmol/L (98-107); Creatine Kinase 39 U/L (30-135); Estimated Glomerular Filt Rate 59 mL/min (>60); Globulin 2.9 g/dL (1.7-4.1); Glucose 144 mg/dL (80-110); HEMOLYSIS < 15 (0-50); Lipase 80 U/L (23-300); Potassium 3.9 mmol/L (3.4-5.1); Sodium 139 mmol/L (137-145); Total Protein 7.1 g/dL (6.3-8.2)
[2024-05-06 13:52] LABS: NT-proBNP (BNP-Adult 18+) 117 pg/mL (<450); Troponin I < 0.012 ng/mL (0.01-0.034)
[2024-05-06 14:33] LABS: Appearance Urine UA CLOUDY; Bilirubin Urine UA NEGATIVE (NEGATIVE); Color Urine UA YELLOW; Glucose Urine UA NEGATIVE (Negative); Ketones Urine UA NEGATIVE (NEGATIVE); Leukocyte Esterase Urine UA TRACE (NEGATIVE); Nitrite Urine UA POSITIVE (Negative); Occult Blood Urine UA NEGATIVE (Negative); Protein Urine UA NEGATIVE (Negative); Specific Gravity Urine UA 1.015 (1.000-1.035); Urobilinogen Urine UA 0.2 E.U./dL (0.2)
[2024-05-06 14:52] LABS: Urine Volume 10mL (spun)
[2024-05-06 14:53] LABS: Bacteria Urine Many (>30); Culture Indicated Urine Specimen Cultured; RBC Urine None Seen (0-5/HPF); Squamous Epithelial Cell Urine 1-5 /HPF (0-5/HPF); WBC Urine 5-10/HPF (0-5/HPF)
[2024-05-06] MEDS: CEFDINIR 300 MG CAPSULE PO (15:16)
[2024-05-06 16:30] LABS: Troponin I < 0.012 ng/mL (0.01-0.034)
[2024-05-06] MEDS: ASPIRIN 81 MG CHEW TAB 324 MG PO (17:09)
== END 2024-05-06 17:30 | disposition home or self-care (01) ==
PROVIDERS: Emergency Provider Emergency Medicine; PCP Internal Medicine
DX: R55 Syncope and collapse (principal); N39.0 Urinary tract infection, site not specified; F03.90 Unspecified dementia, unspecified severity, without behavioral disturbance, psychotic disturbance, mood disturbance, and anxiety; R07.9 Chest pain, unspecified; Z88.0 Allergy status to penicillin
CPT/HCPCS: 36415; 70450; 70496; 70498; 71045; 80053; 81001; 82550; 83690; 83735; 83880; 84484; 85025; 85610; 85730; 87077; 87086; 87186; 93005; 99284; 99285; Q9967

== ENCOUNTER 2024-07-15 08:36 | Inpatient (IN) | payer MEDICARE, SELFPAY ==
[2024-07-15] VITALS (19 sets, daily range): BP systolic 117–218; BP diastolic 57–126; PULSE 73–102; RESP 18–21; TEMP 36.4–36.8; O2SAT 94–100; BMI 23.6
--- NOTE | 2024-07-15 08:47 | DI.RAD.S_ITS ---
PROCEDURE: XR HIP W PEL IF DONE LT 2V INDICATIONS: left hip pain fall TECHNIQUE: To views of the hip were acquired. COMPARISON: None. FINDINGS: Bones: Complete fracture through the left femoral neck with foreshortening of the fracture fragment. Mild bilateral hip osteoarthrosis. Soft tissues: No suspicious soft tissue calcifications or masses. IMPRESSION: Fracture through the left femoral neck with foreshortening Dictated by: Steven Poe M.D. on 07/15/2024 at 8:33 Approved by: Steven Poe M.D. on 07/15/2024 at 8:35
--- NOTE | 2024-07-15 08:47 | DI.RAD.S_ITS ---
PROCEDURE: XR CHEST 1V INDICATIONS: left hip pain fall TECHNIQUE: One view of the chest was acquired. COMPARISON: [facility], CR, XR CHEST 1V, 05/06/2024, 12:19. FINDINGS: Surgical changes and devices: None. Lungs and pleura: Lungs are clear. No pleural effusions or pneumothorax. Mediastinum: Mediastinal contours appear normal. Heart size is normal. Tortuous aorta. Small hiatal hernia. Bones and chest wall: No suspicious bony lesions. Overlying soft tissues appear unremarkable. IMPRESSION: No acute cardiopulmonary abnormality is seen. Dictated by: Steven Poe M.D. on 07/15/2024 at 8:32 Approved by: Steven Poe M.D. on 07/15/2024 at 8:33
--- NOTE | 2024-07-15 08:52 | EKG_ITS ---
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
--- NOTE | 2024-07-15 08:53 | ED_ITS ---
HPI - General Adult General Chief complaint: Fall Stated complaint: Fall/Hip Pain Time Seen by Provider: 07/15/24 08:38 Source: patient, EMS, RN notes reviewed and old records reviewed Mode of arrival: EMS Limitations: other (dementia) History of Present Illness HPI narrative: 84-year-old female history of dementia, dyslipidemia, GERD, osteopenia presents with complaint of ground level fall. This was last night has been back was turn but he heard her fall turned around and found her on her side. Does not think that she hit her head. She has complaints of hip pain per EMS sort of changes side but patient's seems most painful with any sort of movement of the left hip. No daily anticoagulants or reported. Patient states it does hurt but she has a hard time telling us where. She was pleasant, can tell me her name is Zehra. She can tell me that it hurts but has a hard time distinguishing where. Patient denies any difficulty with breathing or chest pain, no reports of nausea or vomiting, no new bowel or bladder issues reported. No loss of consciousness per EMS and . Patient lives at home with her . Related Data Home Medications Medication Instructions Recorded Confirmed ascorbic acid (vitamin C) 1,000 mg 1,000 mg PO BID 12/21/21 05/25/23 tablet cholecalciferol (vitamin D3) 125 125 mcg PO Q OTHER DAY 12/21/21 05/25/23 mcg (5,000 unit) capsule coenzyme Q10 100 mg capsule 100 mg PO DAILY 12/21/21 05/25/23 (CoQ-10) cyanocobalamin (vitamin B-12) 1,000 mcg PO DAILY 12/21/21 05/25/23 1,000 mcg capsule ginkgo biloba 1 cap PO BID 12/21/21 05/25/23 lysine 500 mg tablet 500 mg PO DAILY 12/21/21 05/25/23 magnesium citrate 100 mg capsule 400 mg PO DAILY 12/21/21 05/25/23 omega-3 fatty acids 1,000 mg 1,000 mg PO DAILY 12/21/21 05/25/23 capsule selenium 200 mcg tablet 200 mcg PO DAILY 12/21/21 05/25/23 vit C 250 mg-vit E 90 mg-zinc 40 1 tab PO BID 12/21/21 05/25/23 mg-copper 1 [id number] capsule (PreserVision AREDS-2) zinc 50 mg tablet 50 mg PO DAILY 12/21/21 05/25/23 turmeric 1 cap PO DAILY 03/09/23 05/25/23 Previous Rx's Medication Instructions Recorded omeprazole 20 mg capsule,delayed 20 mg PO DAILY #90 caps 12/21/21 release Disabled Parking Permit 1 ea Not Applicable DAILY #1 ea 05/25/23 Allergies Allergy/AdvReac Type Severity Reaction Status Date / Time Penicillins Allergy Severe Anaphylaxis Verified 05/25/23 07:43 Tetanus Vaccines and Toxoid Allergy Severe Anaphylaxis Verified 05/25/23 07:43 morphine Allergy Mild rash Verified 05/25/23 07:43 Review of Systems Review of Systems ROS Unobtainable: All systems reviewed & are unremarkable except as noted in HPI and below Patient History Medical History 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 Patient was pleasantly demented reported at baseline. HEAD: No evidence of trauma, no raccoon/Pete sign. NECK: Nontender, painless range of motion, trachea midline Negative Nexus criteria, no midline line tenderness, distracting injury, altered mental status, neuro deficit, recent EtOH. EYES: PERRLA, EOMI ENT: External inspection normal, trachea is midline, TM's are normal no hemotypanum, Nares are clear, no septal hematoma, no dental or oral injury, airway is normal and with normal occlusion, No bony tenderness RESP: Chest is nontender and has symmetric movement, no ecchymosis, breath sounds are normal no crackles, wheezes or rales CVS: Heart sounds are normal, no murmur noted, No JVD. ABG/GI: Nontender, soft, normal bowel sounds, no distention, no organomegaly, pelvic rock is negative NEURO: Oriented AOx3, neuro is grossly intact, sensation and motor is normal all 4 extremities moving, cranial nerves II through XII are intact. PSYCH: Normal mood and affect SKIN: Intact, warm and dry, no crepitus and without decubitus BACK: No CVA tenderness, no vertebral tenderness, no step-off's, no crepitus EXT: Atraumatic, left hip is tender, there is a very small area of ecchymosis about 2 cm, patient has pain with any sort of movement of the hip. No other bony tenderness of the left knee, lower thigh, leg or foot. Right lower extremity is nontender throughout with good range of motion. No pedal edema. No cyanosis, pallor or other changes. Nontender bilateral upper extremities Initial Vital Signs Initial Vital Signs: Vital Signs Pulse Rate 78 07/15/24 08:44 Pulse Oximetry 94 07/15/24 08:44 Course Orders Ordered: ED Orders 07/15/24 07:45 EKG-12 Lead Routine 07/15/24 08:47 Chest [XR chest 1V] Stat XR hip w pel if done LT 2V Stat 07/15/24 08:52 CBC Auto Diff [Complete Blood Count AUTO DIFF] Stat CMP [Comprehensive Metabolic Panel] Stat PTT Partial Thromboplastin Dhruv Stat Prothrombin Time INR Stat 07/15/24 09:48 Consult to RED CROSS WORKER - Line Construction Supervisor Stat Acetaminophen (Acetaminophen 325 Mg Tablet) 650 mg PO Q6H PRN PRN Reason: Fever/Mild Pain (1-3) Last Admin: 07/15/24 09:29 Dose: 650 mg Documented By: SPF Discontinued Medications Hydralazine HCl (Hydralazine 20 Mg/Ml Vial) 10 mg IV NOW ONE Stop: 07/15/24 10:17 Vital Signs Vital signs: Vital Signs - 8 hr 07/15/24 08:44 07/15/24 08:46 07/15/24 08:46 Temperature Pulse Rate 78 79 Respiratory Rate Blood Pressure 218/93 H Pulse Oximetry 94 95 Oxygen Delivery Method 07/15/24 08:47 07/15/24 09:09 07/15/24 09:30 Temperature 97.9 F Pulse Rate 78 77 76 Respiratory Rate 18 Blood Pressure 218/93 H Pulse Oximetry 99 100 98 Oxygen Delivery Method Room Air 07/15/24 09:38 07/15/24 09:38 07/15/24 10:00 Temperature Pulse Rate 76 77 Respiratory Rate Blood Pressure 189/87 H Pulse Oximetry 98 98 Oxygen Delivery Method 07/15/24 10:00 Temperature Pulse Rate Respiratory Rate Blood Pressure 200/126 H Pulse Oximetry Oxygen Delivery Method Medical Decision Making Lab Data 07/15/24 08:52 07/15/24 08:52 Labs: Lab Results 07/15/24 Range/Units 08:52 WBC 14.7 H (4.5-11.0) X10^3/uL RBC 4.44 (4.0-5.2) X10^6/uL Hgb 13.6 (12.0-16.0) g/dL Hct 41.1 (36-46) % MCV 92.6 (80-100) fL MCH 30.7 (26-34) PG MCHC 33.2 (30-36) % RDW 14.5 (11.6-14.8) % Plt Count 263 (150-400) X10^3/uL Neut % (Auto) 77.5 H (50-75) % Lymph % (Auto) 13.8 L (25-40) % Whitman % (Auto) 6.9 (3-14) % Eos % (Auto) 0.4 L (2-4) % Baso % (Auto) 1.4 (0-2) % Neut # (Auto) 28091 H (7939-1392) /uL Lymph # (Auto) 2000 (5217-5107) /uL Whitman # (Auto) 1000 H (0-900) /uL Eos # (Auto) 100 (0-450) /uL Baso # (Auto) 200 H (0-100) /uL PT 11.7 (9.4-12.5) SECONDS INR 1.0 (0.9-1.3) APTT 34 (25.1-36.5) SECONDS Sodium 137 (137-145) mmol/L Potassium 3.9 (3.4-5.1) mmol/L Chloride 106 (98-107) mmol/L Carbon Dioxide 20 L (22-32) mmol/L BUN 16 (7-17) mg/dL Creatinine 0.69 (0.52-1.04) mg/dL Estimated GFR > 60 (>60) mL/min BUN/Creatinine Ratio 23.2 H (6-22) Glucose 130 H (80-110) mg/dL Calcium 9.7 (8.4-10.2) mg/dL Total Bilirubin 1.0 (0.2-1.3) mg/dL AST 36 (14-36) IU/L ALT 33 (<35) IU/L Alkaline Phosphatase 111 (38-126) U/L Total Protein 7.8 (6.3-8.2) g/dL Albumin 4.5 (3.5-5.0) g/dL Globulin 3.3 (1.7-4.1) g/dL Albumin/Globulin Ratio 1.4 (1.0-2.8) ECG Data Attestation: I personally reviewed and interpreted this ECG as follows: Interpretation: Sinus rhythm rate of 79 TN 182 QRS is 72 QTC of 346, no acute ST elevation, nonspecific change. MDM Narrative Medical decision making narrative: EKG shows sinus rhythm Chest x-ray no acute cardiopulmonary abnormality seen. Left hip x-ray, left femoral neck hip fracture on x-ray. For shortening. Mild bilateral hip osteoarthritis. Suspicious soft tissue calcifications or masses. Labs shows a white count of 14 hemoglobin of 13 platelets of 263 predominance of neutrophils. INR and PTT is 34. Chemistry shows CO2 of 20 otherwise appropriate electrolytes creatinine 0.69 glucose is 130 LFTs are negative. Consult with Orthopedic surgery, Dr. Womack @ plan for OR we will not be today. Reviewed patient's findings, imaging. Spoke with Dr. Enriquez, hospitalist @ accepts for inpatient left femoral neck fracture, ground level fall, hypertension. Saw patient in the department at 1045am. Patient was hypertensive you ask that we give a dose of hydralazine 10 mg IV here. Discharge Plan Departure Patient Disposition: Admitted As Inpatient Clinical Impression: Closed fracture of neck of left femur, Fall Admit Date/Time: 07/15/24 10:24 Admit Provider: Curt Enriquez V
[2024-07-15 09:02] LABS: Add Manual Diff / Slide Review NO; Basophils Absolute Auto 200 /uL (0-100); Basophils Percent Auto 1.4 % (0-2); Eosinophils Absolute Auto 100 /uL (0-450); Eosinophils Percent Auto 0.4 % (2-4); Hematocrit 41.1 % (36-46); Hemoglobin 13.6 g/dL (12.0-16.0); Lymphocytes Absolute Auto 2000 /uL (1100-4500); Lymphocytes Percent Auto 13.8 % (25-40); Mean Corpuscular HGB Conc 33.2 % (30-36); Mean Corpuscular Hemoglobin 30.7 PG (26-34); Mean Corpuscular Volume 92.6 fL (80-100); Monocytes Absolute Auto 1000 /uL (0-900); Monocytes Percent Auto 6.9 % (3-14); Neutrophils Absolute Auto 11400 /uL (1500-7000); Neutrophils Percent Auto 77.5 % (50-75); Platelet Count 263 X10^3/uL (150-400); Red Blood Cell Count 4.44 X10^6/uL (4.0-5.2); Red Cell Distribution Width 14.5 % (11.6-14.8); White Blood Cell Count 14.7 X10^3/uL (4.5-11.0)
--- NOTE | 2024-07-15 09:04 | PC.NURSE ---
in dept. spoke at length regarding care for pt. states they live alone together and 60+ years. The [facility] comes in every weekday at 0800 to assist with care of pt. they stay for about 1-2 hrs and then pt is also in a daycare 4-5 hrs a few days a week. needs help on weekends. States yesterday around 5pm went to get the mail and found pt on her back on the kitchen floor. called neighbors for lift assist to couch. pt was not complaining of pain at that time and opted to wait till this morning to see how she was feeling. when she was not able to walk he called an ambulance. pt arrived very soiled from overnight. incontinence care provided and purewick placed. Dementia and alert to person only. otherwise appears well kept and cared for.
[2024-07-15 09:09] LABS: Prothrombin Time 11.7 SECONDS (9.4-12.5)
[2024-07-15 09:12] LABS: Alanine Aminotransferase 33 IU/L (<35); Albumin 4.5 g/dL (3.5-5.0); Albumin Globulin Ratio 1.4 (1.0-2.8); Alkaline Phosphatase 111 U/L (38-126); Aspartate Aminotransferase 36 IU/L (14-36); BUN Creatinine Ratio 23.2 (6-22); Blood Urea Nitrogen 16 mg/dL (7-17); Calcium 9.7 mg/dL (8.4-10.2); Carbon Dioxide 20 mmol/L (22-32); Chloride 106 mmol/L (98-107); Estimated Glomerular Filt Rate > 60 mL/min (>60); Globulin 3.3 g/dL (1.7-4.1); Glucose 130 mg/dL (80-110); HEMOLYSIS < 15 (0-50); Potassium 3.9 mmol/L (3.4-5.1); Sodium 137 mmol/L (137-145); Total Protein 7.8 g/dL (6.3-8.2)
[2024-07-15 09:23] LABS: PTT Partial Thromboplastin Tim 34 SECONDS (25.1-36.5)
[2024-07-15] MEDS: ACETAMINOPHEN 325 MG TABLET 650 MG PO (09:29)
[2024-07-15] MEDS: hydrALAZINE 20 MG/ML VIAL 10 MG IV ×2 (10:54→17:54)
--- NOTE | 2024-07-15 10:59 | PM.HP.IH.1 ---
History of Present Illness History of Present Illness Date Patient Seen: 07/15/24 Time Patient Seen: 10:40 Chief complaint: Fall/Hip Pain Narrative: 84-year-old woman under the primary care of Dr. Curt Enriquez was with her at 5:00 a.m. when he left the house for about a minute, only to return to find her on the floor in the bedroom. He tried to get her to move but she elicited cries and stating severe left hip pain. She has moderate dementia and has otherwise been healthy, living at home independently with her . He managed to get her up to a chair and called 911. She was brought to the emergency department where she was found to have a left femoral neck fracture. Orthopedic surgery was consulted in the reportedly planned surgery tomorrow. She denies other injuries. Her is unaware of other concerns recently, stating she has been healthy. Her blood pressure was markedly elevated in the emergency department without a known history of hypertension. 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 Home Medications and Allergies Home Medications Medication Instructions Recorded Confirmed Type ascorbic acid (vitamin C) 1,000 mg 1,000 mg PO BID 12/21/21 05/25/23 History tablet cholecalciferol (vitamin D3) 125 125 mcg PO Q OTHER DAY 12/21/21 05/25/23 History mcg (5,000 unit) capsule coenzyme Q10 100 mg capsule 100 mg PO DAILY 12/21/21 05/25/23 History (CoQ-10) cyanocobalamin (vitamin B-12) 1,000 mcg PO DAILY 12/21/21 05/25/23 History 1,000 mcg capsule ginkgo biloba 1 cap PO BID 12/21/21 05/25/23 History lysine 500 mg tablet 500 mg PO DAILY 12/21/21 05/25/23 History magnesium citrate 100 mg capsule 400 mg PO DAILY 12/21/21 05/25/23 History omega-3 fatty acids 1,000 mg 1,000 mg PO DAILY 12/21/21 05/25/23 History capsule omeprazole 20 mg capsule,delayed 20 mg PO DAILY #90 caps 12/21/21 05/25/23 Rx release selenium 200 mcg tablet 200 mcg PO DAILY 12/21/21 05/25/23 History vit C 250 mg-vit E 90 mg-zinc 40 1 tab PO BID 12/21/21 05/25/23 History mg-copper 1 [id number]-lmnwdl capsule (PreserVision AREDS-2) zinc 50 mg tablet 50 mg PO DAILY 12/21/21 05/25/23 History turmeric 1 cap PO DAILY 03/09/23 05/25/23 History Disabled Parking Permit 1 ea Not Applicable DAILY #1 ea 05/25/23 05/25/23 Rx Allergies Allergy/AdvReac Type Severity Reaction Status Date / Time Penicillins Allergy Severe Anaphylaxis Verified 05/25/23 07:43 Tetanus Vaccines and Toxoid Allergy Severe Anaphylaxis Verified 05/25/23 07:43 morphine Allergy Mild rash Verified 05/25/23 07:43 Review of Systems Review of Systems ROS: Yes All systems reviewed with the patient and are negative except as otherwise documented Exam Vital Signs (past 8 hours): - 07/15/24 08:44 07/15/24 08:46 07/15/24 08:46 Temperature Pulse Rate 78 79 Respiratory Rate Blood Pressure 218/93 H Pulse Oximetry 94 95 Oxygen Delivery Method 07/15/24 08:47 07/15/24 09:09 07/15/24 09:30 Temperature 97.9 F Pulse Rate 78 77 76 Respiratory Rate 18 Blood Pressure 218/93 H Pulse Oximetry 99 100 98 Oxygen Delivery Method Room Air 07/15/24 09:38 07/15/24 09:38 07/15/24 10:00 Temperature Pulse Rate 76 77 Respiratory Rate Blood Pressure 189/87 H Pulse Oximetry 98 98 Oxygen Delivery Method 07/15/24 10:00 07/15/24 10:54 Temperature Pulse Rate 79 Respiratory Rate Blood Pressure 200/126 H 203/93 H Pulse Oximetry Oxygen Delivery Method Oxygen Delivery Method Room Air Narrative Exam Narrative: GENERAL: This is a well-nourished, well-developed patient, in no apparent distress. Pleasantly demented, smiling. HEAD: Atraumatic. Normocephalic. No temporal or scalp tenderness. EYES: Pupils equal round and reactive. Extraocular motions intact. No scleral icterus. No injection or drainage. ENT: Mucous membranes pink and moist. NECK: Trachea midline. No JVD, bruits or lymphadenopathy. Supple, nontender, no meningeal signs. CARDIOVASCULAR: Regular rate and rhythm without murmurs, gallops, or rubs. RESPIRATORY: Clear to auscultation. GASTROINTESTINAL: Abdomen soft, non-tender, nondistended. EXTREMITIES: No clubbing, cyanosis, or edema. MUSCULOSKELETAL: Left leg shortened and internally rotated. Severe pain with slight movement. NEUROLOGIC: Alert, oriented, speech fluent, full upper and lower motor strength, no focal deficits evident. DERMATOLOGIC: No rashes or skin lesions. Objective ECG Impression: Normal sinus rhythm at 79 beats per minute Septal infarct , possible lead placement, otherwise no change from 05/06/2024 Imaging Left hip x-ray 07/15/2024:: Radiologist's impression: Fracture through the left femoral neck with foreshortening Chest x-ray 07/15/2024:: Radiologist's impression: No acute cardiopulmonary abnormality is seen. Labs 07/15/24 08:52 07/15/24 08:52 Labs: Laboratory Results - last 24 hr 07/15/24 08:52 WBC 14.7 H RBC 4.44 Hgb 13.6 Hct 41.1 MCV 92.6 MCH 30.7 MCHC 33.2 RDW 14.5 Plt Count 263 Neut % (Auto) 77.5 H Lymph % (Auto) 13.8 L Jay % (Auto) 6.9 Eos % (Auto) 0.4 L Baso % (Auto) 1.4 Neut # (Auto) 52971 H Lymph # (Auto) 2000 Jay # (Auto) 1000 H Eos # (Auto) 100 Baso # (Auto) 200 H PT 11.7 INR 1.0 APTT 34 Sodium 137 Potassium 3.9 Chloride 106 Carbon Dioxide 20 L BUN 16 Creatinine 0.69 Estimated GFR > 60 BUN/Creatinine Ratio 23.2 H Glucose 130 H Calcium 9.7 Total Bilirubin 1.0 AST 36 ALT 33 Alkaline Phosphatase 111 Total Protein 7.8 Albumin 4.5 Globulin 3.3 Albumin/Globulin Ratio 1.4 Assessment & Plan Assessment & Plan narrative: 1. Left femoral neck fracture due to ground level fall, likely pathologic due to underlying osteoporosis. Admit as inpatient, orthopedics consulted for hip repair reportedly tomorrow, and anticipate subsequent physical therapy and SNF placement before returning home to live independently with her . 2. Dementia, moderately advanced. Stable. 3. Elevated blood pressure, possibly related to pain. Treat with pain control, IV hydralazine as needed and monitor on telemetry. 4. GERD. Continue omeprazole. DVT prophylaxis: SCDs. Hold anticoagulation until surgery. Postoperative DVT prophylaxis per Orthopedics. Code status: Do not resuscitate. POLST form is signed enclosed in the chart, and reviewed with her on admission. Her Christopher is her surrogate decision maker. The patient is admitted inpatient status as she will require at least 2 midnights of inpatient level care. Quality MIPS - Admit I confirm the patient?s Advance Care Plan is present, Code status is documented, Surrogate decision maker is in patient?s record [If Yes, STOP here]: Yes [facility] - Meds 'Current medications' to include all prescriptions, [id number] products, herbals, cannabis/cannabidiol products, and vitamin/mineral/dietary (nutritional) supplements. I have utilized all available resources to obtain, update, or review the patient?s current medications. [If Yes, STOP here]: Yes [employer] Document charge(s): No Charge Codes Initial inpatient/observation care: [id number]
--- NOTE | 2024-07-15 12:39 | P.CONS_ITS ---
History of Present Illness Consult details Date Patient Seen: 07/15/24 Time Patient Seen: 12:40 Chief complaint: Fall/Hip Pain Narrative: 84-year-old female status post fall resulting in a displaced left femoral neck fracture. Patient has suffers from significant dementia in his really only to respond to her name and unable to give any history or really able to follow any commands. Meds Home Medications and Allergies Home Medications Medication Instructions Recorded Confirmed Type ascorbic acid (vitamin C) 1,000 mg 1,000 mg PO BID 12/21/21 05/25/23 History tablet cholecalciferol (vitamin D3) 125 125 mcg PO Q OTHER DAY 12/21/21 05/25/23 History mcg (5,000 unit) capsule coenzyme Q10 100 mg capsule 100 mg PO DAILY 12/21/21 05/25/23 History (CoQ-10) cyanocobalamin (vitamin B-12) 1,000 mcg PO DAILY 12/21/21 05/25/23 History 1,000 mcg capsule ginkgo biloba 1 cap PO BID 12/21/21 05/25/23 History lysine 500 mg tablet 500 mg PO DAILY 12/21/21 05/25/23 History magnesium citrate 100 mg capsule 400 mg PO DAILY 12/21/21 05/25/23 History omega-3 fatty acids 1,000 mg 1,000 mg PO DAILY 12/21/21 05/25/23 History capsule omeprazole 20 mg capsule,delayed 20 mg PO DAILY #90 caps 12/21/21 05/25/23 Rx release selenium 200 mcg tablet 200 mcg PO DAILY 12/21/21 05/25/23 History vit C 250 mg-vit E 90 mg-zinc 40 1 tab PO BID 12/21/21 05/25/23 History mg-copper 1 ep-hisjge-nqfnha capsule (PreserVision AREDS-2) zinc 50 mg tablet 50 mg PO DAILY 12/21/21 05/25/23 History turmeric 1 cap PO DAILY 03/09/23 05/25/23 History Disabled Parking Permit 1 ea Not Applicable DAILY #1 ea 05/25/23 05/25/23 Rx Allergies Allergy/AdvReac Type Severity Reaction Status Date / Time Penicillins Allergy Severe Anaphylaxis Verified 05/25/23 07:43 Tetanus Vaccines and Toxoid Allergy Severe Anaphylaxis Verified 05/25/23 07:43 morphine Allergy Mild rash Verified 05/25/23 07:43 Exam Vital Signs (past 8 hours): - 07/15/24 08:44 07/15/24 08:46 07/15/24 08:46 Temperature Pulse Rate 78 79 Respiratory Rate Blood Pressure 218/93 H Pulse Oximetry 94 95 Oxygen Delivery Method 07/15/24 08:47 07/15/24 09:09 07/15/24 09:30 Temperature 97.9 F Pulse Rate 78 77 76 Respiratory Rate 18 Blood Pressure 218/93 H Pulse Oximetry 99 100 98 Oxygen Delivery Method Room Air 07/15/24 09:38 07/15/24 09:38 07/15/24 10:00 Temperature Pulse Rate 76 77 Respiratory Rate Blood Pressure 189/87 H Pulse Oximetry 98 98 Oxygen Delivery Method 07/15/24 10:00 07/15/24 10:30 07/15/24 10:30 Temperature Pulse Rate 79 Respiratory Rate Blood Pressure 200/126 H 203/93 H Pulse Oximetry 97 Oxygen Delivery Method 07/15/24 10:37 07/15/24 10:54 07/15/24 11:00 Temperature Pulse Rate 79 82 Respiratory Rate Blood Pressure 203/93 H Pulse Oximetry 97 Oxygen Delivery Method Room Air 07/15/24 11:00 07/15/24 11:15 07/15/24 11:15 Temperature Pulse Rate 78 Respiratory Rate Blood Pressure 184/84 H 144/60 H Pulse Oximetry 99 Oxygen Delivery Method 07/15/24 11:30 07/15/24 11:30 07/15/24 11:45 Temperature Pulse Rate 73 75 Respiratory Rate Blood Pressure 126/60 Pulse Oximetry 99 99 Oxygen Delivery Method 07/15/24 11:45 Temperature Pulse Rate Respiratory Rate Blood Pressure 128/59 L Pulse Oximetry Oxygen Delivery Method Oxygen Delivery Method Room Air Narrative Exam Narrative: No signs of any other obvious injury to the right lower extremity or bilateral upper extremities. Neurovascularly intact to the left lower extremity with palpable pedal pulses. Limited physical exam due to dementia. Objective Labs 07/15/24 08:52 07/15/24 08:52 Labs: Laboratory Results - last 24 hr 07/15/24 08:52 WBC 14.7 H RBC 4.44 Hgb 13.6 Hct 41.1 MCV 92.6 MCH 30.7 MCHC 33.2 RDW 14.5 Plt Count 263 Neut % (Auto) 77.5 H Lymph % (Auto) 13.8 L Bradford % (Auto) 6.9 Eos % (Auto) 0.4 L Baso % (Auto) 1.4 Neut # (Auto) 48578 H Lymph # (Auto) 2000 Bradford # (Auto) 1000 H Eos # (Auto) 100 Baso # (Auto) 200 H PT 11.7 INR 1.0 APTT 34 Sodium 137 Potassium 3.9 Chloride 106 Carbon Dioxide 20 L BUN 16 Creatinine 0.69 Estimated GFR > 60 BUN/Creatinine Ratio 23.2 H Glucose 130 H Calcium 9.7 Total Bilirubin 1.0 AST 36 ALT 33 Alkaline Phosphatase 111 Total Protein 7.8 Albumin 4.5 Globulin 3.3 Albumin/Globulin Ratio 1.4 [facility] Medical History 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 Once medically cleared patient will require a hemiarthroplasty of the left proximal femur. Time-Based Coding :: [TOTAL MINUTES] spent with patient and on the chart (including review of chart, obtaining history, exam, reviewing outside data, placing orders, documenting exam and treatment plan, and counseling patient) on [DATE].
[2024-07-15 13:25] LABS: Appearance Urine UA CLOUDY; Bilirubin Urine UA NEGATIVE (NEGATIVE); Color Urine UA YELLOW; Glucose Urine UA NEGATIVE (Negative); Ketones Urine UA NEGATIVE (NEGATIVE); Leukocyte Esterase Urine UA 1+ (NEGATIVE); Nitrite Urine UA POSITIVE (Negative); Occult Blood Urine UA NEGATIVE (Negative); Protein Urine UA NEGATIVE (Negative); Urobilinogen Urine UA 0.2 E.U./dL (0.2)
[2024-07-15 13:38] LABS: RBC Urine None Seen (0-5/HPF); Urine Volume 10mL (spun); WBC Urine 30-100/HPF (0-5/HPF)
[2024-07-15 13:39] LABS: Bacteria Urine Many (>30); Culture Indicated Urine Specimen Cultured; Squamous Epithelial Cell Urine None Seen (0-5/HPF)
[2024-07-15 14:12] LABS: MRSA (Nasal) PCR NOT DETECTED (Not Detect)
[2024-07-15] MEDS: levoFLOXacin 500 MG/100 ML PIGGYBACK 100 MG IV (14:13)
--- NOTE | 2024-07-15 16:11 | PC.NURSE ---
1215 Pt admitted to rm 228 from ED per stretcher. Oriented to name only. Pt refusing food and fluids, removed tele leads and trying to remove IV, Mitts applied to both hands for safety.
--- NOTE | 2024-07-15 17:25 | CM.DANOTE ---
ED DATA CONVERSION OPERATOR DCP Assessment Note: Pt is a 84yo female, resident of [facility]), is admitted for a L hip fracture after a GLF. Pt has a hx of advanced dementia. Pt lives in a house with her , Kj. Pt's Primary Care Provider is Dr. Curt Enriquez and insurance is [facility] Medicare. Reviewed chart and discussed with multidisciplinary team pt's medical status and initial discharge needs. Per ED Provider, pt to be admitted for possible hip surgery. ED DATA CONVERSION OPERATOR DCP met w/patient at bedside; introduced self and role. DCP spoke with pt , Kj, via phone call. Pt spouse states he has been primary caregiver for patient. It is reported that there is no hx of SNF Rehab or Home health, currently goes to day care at the [facility] 3x/week and the marketing programs manager there voluntarily goes to the patient's house every morning to assist with morning routine. ED DATA CONVERSION OPERATOR discussed plans for surgery and pending recommendations post surgery from PT. Pt agreeable with rehab if recommended, stated a preference for SNF in [place]. Pt also agreeable with home health if recommended but he would be only caregiver. Plan: Acute care admission for possible surgery on 07/16. Anticipating PT/OT evaluations and recommendation for evolving discharge plans. CM team will follow closely for coordination of discharge plans. SOLEDAD Richard Discharge Planning/Care Management Advanced directive, confirm from FAMILY Start: 07/15/24 12:34 Freq: Q24H Status: Active Protocol: Document 07/15/24 12:34 CW (Rec: 07/15/24 14:38 CW [id number]) Advance Directive, confirm on record Time 14:38 Person contacted t Copy received No CM Discharge Assessment Start: 07/15/24 12:34 Freq: Status: Active Protocol: Document 07/15/24 12:34 MW (Rec: 07/15/24 12:35 MW [id number]) Discharge Planning Assessment Assigned Director Of Athletics WAYNE Stephen DPOA/Assigned Designee Name Kj, Spouse Contact Information [phone] Advance Directives? Yes Advance Directives on File Yes History Provided By Patient,Medical Record Has Patient been admitted in last 30 No days? Prior Living Arrangements House Household Members spouse Type of transporation used prior to Relies on Others admit Independent with ADL's No Is patient alert and oriented? No: AOx1, Hx Dementia Caregiver for Another No Community Services used prior to Day Care admission: Comment [facility] Patient/Family Preference [facility] Facility Barriers to Discharge No If patient plan is SNF: Has PASSR been Yes completed? Review Status In Process Please Provide Date Initial DC 07/15/24 Assessment Was Performed Next Review Type Continued Stay Review
[2024-07-16 04:32] VITALS: BP 164/76; PULSE 106; RESP 19; TEMP 36.6; O2SAT 93
[2024-07-16 05:11] LABS: Add Manual Diff / Slide Review NO; Basophils Absolute Auto 0 /uL (0-100); Basophils Percent Auto 0.4 % (0-2); Eosinophils Absolute Auto 100 /uL (0-450); Eosinophils Percent Auto 0.5 % (2-4); Hemoglobin 13.5 g/dL (12.0-16.0); Lymphocytes Absolute Auto 1900 /uL (1100-4500); Lymphocytes Percent Auto 16.8 % (25-40); Mean Corpuscular HGB Conc 33.7 % (30-36); Mean Corpuscular Hemoglobin 31.4 PG (26-34); Monocytes Absolute Auto 1200 /uL (0-900); Monocytes Percent Auto 10.5 % (3-14); Neutrophils Absolute Auto 8000 /uL (1500-7000); Neutrophils Percent Auto 71.8 % (50-75); Platelet Count 257 X10^3/uL (150-400); Red Cell Distribution Width 14.4 % (11.6-14.8); White Blood Cell Count 11.1 X10^3/uL (4.5-11.0)
[2024-07-16 05:29] LABS: BUN Creatinine Ratio 25.9 (6-22); Blood Urea Nitrogen 22 mg/dL (7-17); Calcium 9.8 mg/dL (8.4-10.2); Carbon Dioxide 21 mmol/L (22-32); Chloride 107 mmol/L (98-107); Estimated Glomerular Filt Rate > 60 mL/min (>60); Glucose 133 mg/dL (80-110); HEMOLYSIS < 15 (0-50); Sodium 138 mmol/L (137-145)
[2024-07-16 08:00] VITALS: BP 174/74; PULSE 94; RESP 21; O2SAT 95
[2024-07-16] MEDS: SODIUM CHLORIDE 0.9% FLUSH 10 ML IV ×2 (08:06→21:22)
[2024-07-16 12:00] VITALS: BP 181/79; PULSE 86; RESP 21; O2SAT 94
--- NOTE | 2024-07-16 14:50 | PM.PN.1 ---
Subjective Subjective Interval history: 84 F admitted with L hip fracture. OR now planned for tomorrow per orthopedic surgery. Started on antibiotics for possible acute cystitis. Patient with no complaints of pain this morning at rest, did not recall her fall at all. Exam Vital Signs (past 8 hours): - 07/16/24 08:00 07/16/24 12:00 Pulse Rate 94 H 86 Respiratory Rate 21 21 Blood Pressure 174/74 H 181/79 H Pulse Oximetry 95 94 Oxygen Delivery Method Room Air Oxygen Flow Rate 0 Narrative Exam Narrative: GENERAL: This is a well-nourished, well-developed patient, in no apparent distress. Pleasantly demented, smiling. HEAD: Atraumatic. Normocephalic. No temporal or scalp tenderness. EYES: Pupils equal round and reactive. Extraocular motions intact. No scleral icterus. No injection or drainage. ENT: Mucous membranes pink and moist. NECK: Trachea midline. No JVD, bruits or lymphadenopathy. Supple, nontender, no meningeal signs. CARDIOVASCULAR: Regular rate and rhythm without murmurs, gallops, or rubs. RESPIRATORY: Clear to auscultation. GASTROINTESTINAL: Abdomen soft, non-tender, nondistended. EXTREMITIES: No clubbing, cyanosis, or edema. MUSCULOSKELETAL: Left leg shortened and internally rotated. Severe pain with slight movement. NEUROLOGIC: Alert, oriented, speech fluent, full upper and lower motor strength, no focal deficits evident. DERMATOLOGIC: No rashes or skin lesions. 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 Left femoral neck fracture due to ground level fall, likely pathologic due to underlying osteoporosis. - OR planned for tomorrow per orthopedics team - continue as needed pain control - NPO @ [place] 2. Dementia, moderately advanced. Stable. 3. Elevated blood pressure, possibly related to pain. - Treat with pain control, IV hydralazine as needed and monitor on telemetry. 4. GERD. Continue omeprazole. 5. Acute cystitis, present on admission. - levofloxacin ordered, will finish therapy after 3 days. DVT prophylaxis: SCDs. Hold anticoagulation until surgery. Postoperative DVT prophylaxis per Orthopedics. Code status: Do not resuscitate. POLST form is signed enclosed in the chart, and reviewed with her on admission. Her Christopher is her surrogate decision maker. The patient is admitted inpatient status as she will require at least 2 midnights of inpatient level care. Time-Based Coding :: [TOTAL MINUTES] spent with patient and on the chart (including review of chart, obtaining history, exam, reviewing outside data, placing orders, documenting exam and treatment plan, and counseling patient) on [DATE]. Quality VTE Deep Vein Thrombosis/Pulmonary Embolism Present on Admission: No
[2024-07-16] MEDS: levoFLOXacin 250 MG/50 ML PIGGYBACK 100 MG IV (15:18)
[2024-07-16 16:00] VITALS: BP 191/87; PULSE 100; RESP 21; O2SAT 91
[2024-07-16 18:39] VITALS: BP 174/86
[2024-07-16 20:00] VITALS: BP 187/91; PULSE 104; RESP 18; TEMP 36.7; O2SAT 93
[2024-07-16] MEDS: HYDROMORPHONE 0.5 MG INJ IV (21:21)
[2024-07-17] VITALS (15 sets, daily range): BP systolic 110–190; BP diastolic 63–95; PULSE 66–96; RESP 12–20; TEMP 36.2–37.2; O2SAT 92–99; BMI 22.9
[2024-07-17 06:08] LABS: Add Manual Diff / Slide Review NO; Basophils Absolute Auto 100 /uL (0-100); Basophils Percent Auto 1.1 % (0-2); Eosinophils Absolute Auto 100 /uL (0-450); Eosinophils Percent Auto 0.6 % (2-4); Hematocrit 40.3 % (36-46); Hemoglobin 13.4 g/dL (12.0-16.0); Lymphocytes Absolute Auto 2000 /uL (1100-4500); Mean Corpuscular HGB Conc 33.3 % (30-36); Mean Corpuscular Hemoglobin 31.2 PG (26-34); Mean Corpuscular Volume 93.6 fL (80-100); Monocytes Absolute Auto 1700 /uL (0-900); Monocytes Percent Auto 14.2 % (3-14); Neutrophils Absolute Auto 8300 /uL (1500-7000); Neutrophils Percent Auto 68.1 % (50-75); Platelet Count 229 X10^3/uL (150-400); Red Blood Cell Count 4.31 X10^6/uL (4.0-5.2); Red Cell Distribution Width 14.3 % (11.6-14.8); White Blood Cell Count 12.2 X10^3/uL (4.5-11.0)
[2024-07-17 06:18] LABS: Blood Urea Nitrogen 30 mg/dL (7-17); Calcium 9.3 mg/dL (8.4-10.2); Carbon Dioxide 21 mmol/L (22-32); Chloride 108 mmol/L (98-107); Estimated Glomerular Filt Rate > 60 mL/min (>60); Glucose 139 mg/dL (80-110); HEMOLYSIS < 15 (0-50); Potassium 3.8 mmol/L (3.4-5.1); Sodium 139 mmol/L (137-145)
[2024-07-17] MEDS: HYDROMORPHONE 0.5 MG INJ IV ×2 (06:47→11:18)
[2024-07-17] MEDS: SODIUM CHLORIDE 0.9% FLUSH 10 ML IV (08:49)
--- NOTE | 2024-07-17 11:20 | PM.HP.1 ---
History of Present Illness History of Present Illness Date Patient Seen: 07/17/24 Time Patient Seen: 11:21 Date of Onset of Symptoms: 07/15/24 Chief complaint: Fall/Hip Pain Narrative: This is a pleasant 84-year-old female who lives with her . She has some mild dementia. She did fall and injured her left hip. He was able to get her up to a chair and the couch and thought that hopefully it would just get better but then he noticed that she could not walk and she had incapacitating hip pain. She was brought to the emergency room for evaluation. She seemed to be in her normal state of health prior to the fall. She did not seem to have any increased confusion or chest pain or other symptoms prior to the fall. She lives with her and goes to a dementia daycare facility during the day. 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 household members: spouse Smoking Status: Never smoker alcohol intake: never Meds Home Medications and Allergies Home Medications Medication Instructions Recorded Confirmed Type ascorbic acid (vitamin C) 1,000 mg 1,000 mg PO BID 12/21/21 07/15/24 History tablet cholecalciferol (vitamin D3) 125 125 mcg PO Q OTHER DAY 12/21/21 07/15/24 History mcg (5,000 unit) capsule coenzyme Q10 100 mg capsule 100 mg PO DAILY 12/21/21 07/15/24 History (CoQ-10) cyanocobalamin (vitamin B-12) 1,000 mcg PO DAILY 12/21/21 07/15/24 History 1,000 mcg capsule ginkgo biloba 1 cap PO BID 12/21/21 07/15/24 History lysine 500 mg tablet 500 mg PO DAILY 12/21/21 07/15/24 History magnesium citrate 100 mg capsule 400 mg PO DAILY 12/21/21 07/15/24 History omega-3 fatty acids 1,000 mg 1,000 mg PO DAILY 12/21/21 07/15/24 History capsule omeprazole 20 mg capsule,delayed 20 mg PO DAILY #90 caps 12/21/21 07/15/24 Rx release selenium 200 mcg tablet 200 mcg PO DAILY 12/21/21 07/15/24 History vit C 250 mg-vit E 90 mg-zinc 40 1 tab PO BID 12/21/21 07/15/24 History mg-copper 1 [id number] capsule (PreserVision AREDS-2) zinc 50 mg tablet 50 mg PO DAILY 12/21/21 07/15/24 History turmeric 1 cap PO DAILY 03/09/23 07/15/24 History Disabled Parking Permit 1 ea Not Applicable DAILY #1 ea 05/25/23 07/15/24 Rx Allergies Allergy/AdvReac Type Severity Reaction Status Date / Time Penicillins Allergy Severe Anaphylaxis Verified 05/25/23 07:43 Tetanus Vaccines and Toxoid Allergy Severe Anaphylaxis Verified 05/25/23 07:43 morphine Allergy Mild rash Verified 05/25/23 07:43 Review of Systems Review of Systems Narrative: Normal state of health prior to the fall. Exam Vital Signs (past 8 hours): - 07/17/24 04:00 07/17/24 08:00 Temperature 98.6 F 98.2 F Pulse Rate 96 H 85 Respiratory Rate 20 18 Blood Pressure 138/76 135/76 Pulse Oximetry 95 94 Oxygen Flow Rate 0 0 Oxygen Delivery Method Room Air Oxygen Flow Rate 0 Narrative Exam Narrative: HEENT is atraumatic, she is pleasant she does note she has left hip pain, she does have some confusion. Her lungs are clear, cor regular rate and rhythm, abdomen is soft and benign, examination of the left lower extremity shows shortening of the left leg, she has pain with any attempted range of motion of her left hip she can fire her toe flexors and extensors with trace motion Objective Labs 07/17/24 05:40 07/17/24 05:40 Labs: Laboratory Results - last 24 hr 07/17/24 05:40 WBC 12.2 H RBC 4.31 Hgb 13.4 Hct 40.3 MCV 93.6 MCH 31.2 MCHC 33.3 RDW 14.3 Plt Count 229 Neut % (Auto) 68.1 Lymph % (Auto) 16.0 L [place] % (Auto) 14.2 H Eos % (Auto) 0.6 L Baso % (Auto) 1.1 Neut # (Auto) 8300 H Lymph # (Auto) 2000 [place] # (Auto) 1700 H Eos # (Auto) 100 Baso # (Auto) 100 Sodium 139 Potassium 3.8 Chloride 108 H Carbon Dioxide 21 L BUN 30 H Creatinine 0.75 Estimated GFR > 60 BUN/Creatinine Ratio 40.0 H Glucose 139 H Calcium 9.3 x-rays show a displaced left femoral neck fracture with shortening Assessment & Plan Assessment and plan (1) Fall: Status: Acute (2) Closed fracture of neck of left femur: Status: Acute (3) 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 The procedure options risks benefits and complications were discussed with the patient and her . Complications including but not limited to fracture, bleeding, dislocation, potential medical problems infection and risk for deep venous thrombosis or thrombus event were all discussed in detail. The options risks benefits and complications were discussed. We are going to proceed with a cemented left hemiarthroplasty. Time-Based Coding :: [TOTAL MINUTES] spent with patient and on the chart (including review of chart, obtaining history, exam, reviewing outside data, placing orders, documenting exam and treatment plan, and counseling patient) on [DATE]. Quality VTE Deep Vein Thrombosis/Pulmonary Embolism Present on Admission: No
[2024-07-17] MEDS: DEXTROSE 5%-0.45% NS 1,000 ML 75 ML IV (13:16)
[2024-07-17] MEDS: LACTATED RINGERS 1,000 ML 42 ML IV (14:42)
--- NOTE | 2024-07-17 15:03 | P.OP_ITS ---
Operative Date/Time/Diagnoses Date of procedure: 07/17/24 Time of procedure: 15:20 Pre-op diagnosis: left hip femoral neck fracture Post-op diagnosis: same Procedure & Clinicians Procedure: Left hip unipolar Same procedure as scheduled: Yes Indications: The patient fell and sustained a displaced femoral neck fracture she was brought to the operating room for a cemented left Uni polar. Non-operative management has failed and the patient has requested total hip replacement. The risks, benefits and alternatives to surgery were discussed with the patient prior to proceeding. Risks discussed included, but were not limited to, failure to relieve pain, leg length discrepancy, dislocation, stiffness, infection, nerve damage, deep venous thrombosis, pulmonary embolism, stroke, coma, heart attack, permanent paralysis and , as well as the potential need for eventual revision of the prosthetic. Surgeon: Elise Earl Stocklayer: Mihaela Brandon Anesthesia Type: General Operative Notes Findings: Displaced left femoral neck fracture, mild changes in the acetabulum Closure Type: primary Specimen(s): none sent Prosthetic devices, grafts, tissues, transplants, or devices: [employer] standard offset cemented stem size 9, unipolar head 44, +4 femoral neck Estimated Blood Loss (mL): 250 Blood products transfused: none Procedure in detail: The patient was seen in the pre-operative area, where the patient identified the left hip as the operative site and this was marked with my initials. The patient received pre-operative antibiotics and was taken to the operating room and placed on the operative table in the supine position after satisfactory anesthesia. A multimedia coordinator out was performed. Patient was placed in the lateral decubitus position and all bony prominences were carefully padded and the arms were appropriately position. PA was used during the procedure and was essential for intraoperative retraction and safe implantation of the components. The left lower extremity was prepared from the ankle to the iliac crest with ChloroPrep in the usual fashion and draped through sterile drapes. The hip was approached through posterolateral approach. Dissection was carried out down through skin and subcutaneous tissues. The fascia was opened. Gelpi retractors were placed. A Charnley retractor was placed. A small amount of inflamed bursa was resected. The piriformis was identified and protected. The other short external rotators and capsule were carefully stripped from the posterior aspect of the femur. They were tagged and carefully retracted. The femoral neck was b rought up and an osteotomy was made of the residual femoral neck approximately 1 fingerbreadth above the lesser trochanter. The head was removed without difficulty. It was carefully sized. The acetabulum was meticulously irrigated with normal saline. There were [mild] changes in the acetabulum. The acetabulum was carefully protected with an E tape. The canal was opened with a box cutting osteotome, followed by a T-handled reamer and a lateralizing reamer. The tapered reamers were then used, followed by sequential broaching. A trial head and neck were then placed and the hip relocated and checked for leg length and stability. The patient was stable in the position of sleep, of squatting, and could be put through a range of motion with 45 degrees internal rotation without dislocation. At 90 degrees flexion, internal rotation to 70? was possible before dislocation. This was felt to be satisfactory and the appropriate components were opened, and the trials were removed. The femoral canal was sized and a distal cement restrictor was placed. The bone was meticulously cleaned with pulse lavage. The canal was packed with vaginal packing with epinephrine. Antibiotics cement was mixed and carefully pressurized into the femoral canal. The femoral component was placed without difficulty. A repeat trial reduction showed good range of motion and stability. We did a brief Betadine soak after the cement had hardened. Patient had good range of motion and stability. The final head and neck were placed after carefully irrigating the wound. The capsulomuscular flap was then repaired to the greater trochanter though an awl hole using the tag sutures. The short external rotators were repaired with black braided nylon. The fascia galo was closed with interrupted sutures. The subcutaneous layer was closed with interrupted 3-0 Vicryl, and the skin with a running 3-0 V-Lock suture and surgical glue. An Aquacel Ag dressing was applied and the patient was taken to recovery having tolerated the procedure well. Complications: none Post-operative Condition: stable Disposition: Acute Care Plan for aftercare: The patient will be maintained on a standard total hip replacement protocol with weight bearing as tolerated and posterior hip precautions. The patient will receive Aspirin and sequential compression devices for DVT prophylaxis. The patient will be discharged home when safe for the home environment.
--- NOTE | 2024-07-17 15:04 | DI.RAD.S_ITS ---
PROCEDURE: XR PELVIS 1-2V INDICATIONS: hip fracture TECHNIQUE: 1 view of the lower pelvis acquired. COMPARISON: [facility], CR, XR HIP W PEL IF DONE LT 2V, 07/15/2024, 8:47. FINDINGS: Bones: Status post interval left hip arthroplasty. The femoral head component and acetabular cup are not well visualized. No other fractures are seen. Soft tissues: Overlying postoperative changes are noted. No suspicious soft tissue densities. IMPRESSION: Single-view pelvis demonstrates postsurgical changes of left hip arthroplasty. The femoral head component and acetabular cup are not definitively seen on this exam. Recommend correlation with procedural note. Dictated by: Blayne Baez M.D. on 07/17/2024 at 17:10 Approved by: Blayne Baez M.D. on 07/17/2024 at 17:12
[2024-07-17] MEDS: VANCOMYCIN 1,000 MG in SODIUM CHLORIDE 0.9% 250 ML 250 MG IV (15:30)
--- NOTE | 2024-07-17 15:37 | P.PN_ITS ---
Subjective Subjective Interval history: 84 F admitted with L hip fracture. OR today with orthopedic surgery. Started on antibiotics for possible acute cystitis. Patient with no complaints of pain this morning at rest. Exam Vital Signs (past 8 hours): - 07/17/24 08:00 07/17/24 12:00 07/17/24 14:37 Temperature 98.2 F 98.3 F 97.6 F Pulse Rate 85 87 78 Respiratory Rate 18 18 16 Blood Pressure 135/76 113/83 159/78 H Pulse Oximetry 94 96 98 Oxygen Delivery Method Room Air Oxygen Flow Rate 0 2 Oxygen Delivery Method Room Air Oxygen Flow Rate 2 Narrative Exam Narrative: GENERAL: This is a well-nourished, well-developed patient, in no apparent distress. Pleasantly demented, smiling. HEAD: Atraumatic. Normocephalic. No temporal or scalp tenderness. EYES: Pupils equal round and reactive. Extraocular motions intact. No scleral icterus. No injection or drainage. ENT: Mucous membranes pink and moist. NECK: Trachea midline. No JVD, bruits or lymphadenopathy. Supple, nontender, no meningeal signs. CARDIOVASCULAR: Regular rate and rhythm without murmurs, gallops, or rubs. RESPIRATORY: Clear to auscultation. GASTROINTESTINAL: Abdomen soft, non-tender, nondistended. EXTREMITIES: No clubbing, cyanosis, or edema. MUSCULOSKELETAL: Left leg shortened and internally rotated. Severe pain with slight movement. NEUROLOGIC: Alert, oriented, speech fluent, full upper and lower motor strength, no focal deficits evident. DERMATOLOGIC: No rashes or skin lesions. 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 Left femoral neck fracture due to ground level fall, likely pathologic due to underlying osteoporosis. - OR planned for today per orthopedics team - continue as needed pain control - PT/OT to start tomorrow - labs reviewed without significant change today, medically patient is optimized prior to procedure. 2. Dementia, moderately advanced. Stable. 3. Elevated blood pressure, possibly related to pain. - Treat with pain control, IV hydralazine as needed and monitor on telemetry. 4. GERD. Continue omeprazole. 5. Acute cystitis, present on admission. - levofloxacin ordered, last dose was today, considered completed course of therapy at this time DVT prophylaxis: SCDs. Hold anticoagulation until surgery. Postoperative DVT prophylaxis per Orthopedics. Code status: Do not resuscitate. POLST form is signed enclosed in the chart, and reviewed with her on admission. Her Christopher is her surrogate decision maker. The patient is admitted inpatient status as she will require at least 2 midnights of inpatient level care. Likely to SNF after therapy evaluations complete. Time-Based Coding :: [TOTAL MINUTES] spent with patient and on the chart (including review of chart, obtaining history, exam, reviewing outside data, placing orders, documenting exam and treatment plan, and counseling patient) on [DATE]. Quality VTE Deep Vein Thrombosis/Pulmonary Embolism Present on Admission: No
[2024-07-17] MEDS: CEFAZOLIN 2 GM/100 ML PREMIX 100 ML IV ×2 (15:40→23:18)
[2024-07-17] MEDS: TRANEXAMIC ACID 1,000 MG VIAL 2000 MG INJ ×2 (15:55→16:57)
[2024-07-17] MEDS: ACETAMINOPHEN IV 1,000 MG/100 ML VIAL 400 MG IV (15:58)
--- NOTE | 2024-07-17 16:11 | SUR.OPER ---
Lateral on padded OR bed. Gel axillary roll. Arms secured on padded armboard gel pad added with pillow supporting top arm. Padded hip positioner braces x4 - anterior and posterior chest and pelvis. Additional gel pad used anterior pelvis. Gel pad under bottom leg from knee to foot and secured with tape over sheet.
[2024-07-17] MEDS: BUPIVACAINE 0.25% W/ EPI 30 ML VIAL 60 ML INJ (16:48)
[2024-07-17] MEDS: BUPIVACAINE LIPOSOME 266 MG/20 ML VIAL INJ (16:49)
[2024-07-17] MEDS: EPINEPHrine 1 MG/ML IRR (16:55)
[2024-07-17] MEDS: LACTATED RINGERS 1,000 ML 100 ML IV ×2 (19:12→21:01)
--- NOTE | 2024-07-17 23:48 | PC.NURSE ---
NOC: Pt unable to understand or follow commands, therefore not able to safely take PO medication. Pt refused or ignored medication attempts, both whole pills and crushed in pudding. Informed MD King who gave verbal orders for 0.5mg hydromorphine IVP PRN. Pt currently on continuous IVF. Pt sleeping comfortably, call light within reach, plan of care continues.
[2024-07-18] VITALS: BP 139/67; PULSE 71; RESP 16; TEMP 35.9; O2SAT 99
[2024-07-18 04:00] VITALS: BP 146/63; PULSE 79; RESP 16; TEMP 36.7; O2SAT 98
[2024-07-18] MEDS: HYDROMORPHONE 0.5 MG INJ IV (04:08)
[2024-07-18 05:11] LABS: Add Manual Diff / Slide Review NO; Basophils Absolute Auto 100 /uL (0-100); Eosinophils Absolute Auto 0 /uL (0-450); Eosinophils Percent Auto 0.1 % (2-4); Hemoglobin 11.7 g/dL (12.0-16.0); Lymphocytes Absolute Auto 1400 /uL (1100-4500); Lymphocytes Percent Auto 9.7 % (25-40); Mean Corpuscular HGB Conc 33.5 % (30-36); Mean Corpuscular Hemoglobin 31.2 PG (26-34); Mean Corpuscular Volume 93.3 fL (80-100); Monocytes Absolute Auto 1400 /uL (0-900); Monocytes Percent Auto 10.3 % (3-14); Neutrophils Absolute Auto 11000 /uL (1500-7000); Neutrophils Percent Auto 78.9 % (50-75); Platelet Count 195 X10^3/uL (150-400); Red Blood Cell Count 3.75 X10^6/uL (4.0-5.2); Red Cell Distribution Width 14.1 % (11.6-14.8); White Blood Cell Count 13.9 X10^3/uL (4.5-11.0)
[2024-07-18 05:41] LABS: BUN Creatinine Ratio 46.8 (6-22); Blood Urea Nitrogen 29 mg/dL (7-17); Calcium 9.3 mg/dL (8.4-10.2); Carbon Dioxide 22 mmol/L (22-32); Chloride 109 mmol/L (98-107); Estimated Glomerular Filt Rate > 60 mL/min (>60); Glucose 134 mg/dL (70-99); HEMOLYSIS < 15 (0-50); Potassium 4.2 mmol/L (3.4-5.1); Sodium 138 mmol/L (137-145)
[2024-07-18] MEDS: CEFAZOLIN 2 GM/100 ML PREMIX 100 ML IV (06:33)
--- NOTE | 2024-07-18 07:43 | PM.PN.1 ---
Subjective Subjective Interval history: Summary: 84 F admitted with L hip fracture. OR today with orthopedic surgery. Started on antibiotics for possible acute cystitis. S: She has severe cognitive deficits as unable to engage in any information exchange. Exam Vital Signs (past 8 hours): - 07/18/24 00:00 07/18/24 04:00 Temperature 96.6 F L 98.0 F Pulse Rate 71 79 Respiratory Rate 16 16 Blood Pressure 139/67 146/63 H Pulse Oximetry 99 98 Oxygen Flow Rate 1 1 Fraction of Inspired Oxygen 28 SaO2/FiO2 Ratio 353 Oxygen Delivery Method Nasal Cannula Oxygen Flow Rate 1 Narrative Exam Narrative: NAD, alert and oriented. Fluent speech. Lungs are clear, normal rate and effort. Heart is regular, no murmur gallop or rub. Abdomen is soft, non distended. Extremities are free of edema. 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 Left femoral neck fracture due to ground level fall, likely pathologic due to underlying osteoporosis. - PT/OT - labs reviewed without significant change today, medically patient is optimized prior to procedure. 2. Dementia, moderately advanced. Stable. 3. Elevated blood pressure, possibly related to pain. - Treat with pain control, IV hydralazine as needed and monitor on telemetry. 4. GERD. Continue omeprazole. 5. Acute cystitis, present on admission. - levofloxacin ordered, last dose was today, considered completed course of therapy at this time PLAN: -continue antibiotics for urinary tract infection. -the patient's has severe cognitive impairment which may prohibit her participation with therapies. -we will have to follow her progress. DVT prophylaxis: SCDs. Hold anticoagulation until surgery. Postoperative DVT prophylaxis per Orthopedics. Code status: Do not resuscitate. POLST form is signed enclosed in the chart, and reviewed with her on admission. Her Christopher is her surrogate decision maker. Time-Based Coding :: [TOTAL MINUTES] spent with patient and on the chart (including review of chart, obtaining history, exam, reviewing outside data, placing orders, documenting exam and treatment plan, and counseling patient) on [DATE]. Quality VTE Deep Vein Thrombosis/Pulmonary Embolism Present on Admission: No
[2024-07-18] MEDS: LACTATED RINGERS 1,000 ML 100 ML IV ×2 (07:55→21:51)
[2024-07-18] MEDS: ASPIRIN EC 81 MG TABLET PO ×2 (08:07→20:02)
[2024-07-18] MEDS: IBUPROFEN 400 MG TABLET PO ×3 (08:08→21:52)
[2024-07-18] MEDS: ASCORBIC ACID 500 MG TABLET 1000 MG PO ×2 (08:08→20:03)
[2024-07-18] MEDS: cefTRIAXone 1,000 MG in SODIUM CHLORIDE 0.9% 100 ML 200 MG IV (08:09)
[2024-07-18 08:13] VITALS: BP 163/76; PULSE 73; RESP 16; TEMP 36.7; O2SAT 98
[2024-07-18] MEDS: VIT C/E/ZN/COPPR/LUTEIN/ZEAXAN CAPSULE 1 CAP PO (08:16)
[2024-07-18] MEDS: FISH OIL 1,000 MG CAPSULE 1000 MG PO (08:16)
[2024-07-18] MEDS: DOCUSATE 100 MG CAPSULE PO ×2 (08:16→20:02)
[2024-07-18] MEDS: ACETAMINOPHEN 325 MG TABLET 650 MG PO ×2 (09:00→18:49)
[2024-07-18] MEDS: CHOLECALCIFEROL (VITAMIN D3) 5,000 UNIT TABLET 5000 UNIT PO (09:41)
[2024-07-18 09:43] VITALS: O2SAT 94
--- NOTE | 2024-07-18 10:17 | OT.IPNOTE ---
Attempted OT eval and at this pt too confused to be able to follow commands for OT eval. To see pt when more appropriate.
--- NOTE | 2024-07-18 11:50 | PT.IIE ---
Current Diagnoses Dementia in other diseases classified elsewhere, unspecified severity, without behavioral disturbance, psychotic disturbance, mood disturbance, and anxiety (07/15/24) Alzheimer's disease, unspecified (07/15/24) Other osteoporosis with current pathological fracture, left femur, initial encounter for fracture (07/15/24) Elevated blood-pressure reading, without diagnosis of hypertension (07/15/24) Fracture of unspecified part of neck of left femur, initial encounter for closed fracture (07/15/24) Unspecified fall, initial encounter (07/15/24) Surgery Performed Operation Date: 07/17/24 16:15 Actual Procedures p LEFT HIP UNIPOLAR, PARTIAL HIP REPLACEMENT CEMENTED S&N(Left) - Elise Earl MD Medical History (Last Reviewed 07/18/24 @ 07:44 by Zen Whitney MD) 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 Elevated blood pressure reading without diagnosis of hypertension GERD without esophagitis Menopausal syndrome Mixed hyperlipidemia Osteopenia Urinary incontinence Physical Therapy Inpatient Evaluation/Re-Eval M1 PT/OT-IP Prior Functional Status Start: 07/18/24 12:28 Freq: NEEDED Status: Active Protocol: Document 07/18/24 11:50 AB (Rec: 07/18/24 12:58 AB [id number]) Medical Review Prior Functional Status Medical History Reviewed Yes Communication pt with dx dementia and with confusion; unable to follow directions and is restless Mobility and Gait spouse in room and provided pt 's PLOF: stated that pt is modified independent with bed mobility, transfers and ambulation when she remembers or when spouse hands it to her otherwise, pt furniture cruises and shuffles per spouse; spouse stated that if pt is unsteady, he uses a 4WW as a w/c to move her around pt has h/o falls Social History Household Members spouse Living Arrangements House Number of Floors (Floors) One Floor Number of Stairs To Enter/Railing? 3 steps without rails from the front 3 steps with L rail ascending from the garage Home Environment Standard Height Toilet,Walk in Shower Home Equipment Front Wheel Walker,Four Wheel Walker,Straight Cane,Grab Bars In Shower Additional Social History Comment spouse stated that pt goes to [facility] 5x/week from 10am to 3pm and she gets a shower when she is there M2 PT-IP Current Condition Start: 07/18/24 12:28 Freq: NEEDED Status: Active Protocol: Document 07/18/24 11:50 AB (Rec: 07/18/24 12:58 AB [id number]) Physical Therapy Current Condition Current Condition Evaluation Date 07/18/24 Treatment Diagnosis s/p L hip hemiarthroplasty posterior; difficulty in walking Onset Date 07/15/24 M3 PT-IP Subjective Start: 07/18/24 12:28 Freq: NEEDED Status: Active Protocol: Document 07/18/24 11:50 AB (Rec: 07/18/24 12:58 AB [id number]) Subjective Physical Therapy Visit Type Type Initial Evaluation Visit Start Time 11:50 Visit Stop Time 12:25 Number of PROCESS WORKER Visits 0 Therapy Pain Assessment Pain When Pain Assessed During Mobility Location Left Hip Scale Used pain scale not stated Pain Behaviors Facial Grimacing,Guarding, Restlessness Pain Management Techniques Distraction,Modification of Treatment,Re-positioning, Timing of Activity with Medications M4 PT-IP Mobility and Gait Start: 07/18/24 12:28 Freq: NEEDED Status: Active Protocol: Document 07/18/24 11:50 AB (Rec: 07/18/24 12:58 AB [id number]) PT-Bed Mobility Assessment Supine to Sit Supine to Sit Maximum Assistance,2 Person Assistance,Head of Bed Elevated,Bedrails Scooting Scooting to Edge of Bed Dependent PT-Transfer Assessment Sit to and From Stand Sit to and from Stand Maximum Assistance,Total Assistance,2 Person Assistance ,Use of Upper Extremities Equipment Transfer Assistive Device Gait Belt,Front Wheeled Walker Orthotic/Prosthetic Devices or Brace: No Transfers Transfer Destination Chair Transfer Technique Stand Pivot Transfer Ability Level of Assist Maximum Assistance,Total Assistance,2 Person Assistance ,Use of Upper Extremities Comments Mobility Comments checked on pt earlier this morning but pt with dementia and seemed agitated. Checked back on pt and spouse in room with pt. obtained PLOF and home set up from spouse. pt with confusion and needs max cues with all tasks. pt with difficulty following directions and is restless and easily gets agitated. BP 140 /65. completed supine to sit HOB elevated max A x 2-3 and max cues. pt tends to pull gown, IV/pierce tubing and needs redirections . pt able to sit on EOB max A x 1-2 and max cues. sit to stand max A x 3 to total A x 3 and max cues and stand pivot transfer using FWW max A x 3 to total A x 3. total A for positioning on the chair. call light and table placed within reach. Left pt with spouse. PT-Balance Assessment Sitting Balance and Reactions Static Sitting Balance Ability Fair Dynamic Sitting Balance Ability Fair Standing Balance and Reactions Static Standing Balance Ability Poor Dynamic Standing Balance Ability Poor Device Used FWW M5 PT-IP Objective Assessments Start: 07/18/24 12:28 Freq: NEEDED Status: Active Protocol: Document 07/18/24 11:50 AB (Rec: 07/18/24 12:58 AB [id number]) Orientation Orientation/Cognition Level of Alertness Confusional State Safety Awareness Decreased Safety Awareness Memory Description Short Term Impaired,Retirement Impaired Strength Comments Strength Comments NT: pt unable to follow directions Muscle Tone Muscle Tone WNL Yes M6 PT-IP Treatment Start: 07/18/24 12:28 Freq: NEEDED Status: Active Protocol: Document 07/18/24 11:50 AB (Rec: 07/18/24 12:58 AB [id number]) Physical Therapy Treatment Education Education Provided Precautions,Weight Bearing Status,Post-Op Packet,Safety Other Treatments Other Treatment Performed post-op folder provided to spouse M7 PT-IP Assessment and Plan Start: 07/18/24 12:28 Freq: NEEDED Status: Active Protocol: Document 07/18/24 11:50 AB (Rec: 07/18/24 12:58 AB [id number]) PT Summary Assessment and Plan Potential Rehabilitation Potential Fair Status of Condition at Evaluation Evolving Summary Impairments Pain,ROM,Strength,Balance, Coordination,Sensation,Tone, Cognition,Bed Mobility, Transfers,Gait,Activity Tolerance Assessment Summary pt is an 84 y/o F s/p fall and sustain a L hip fx. pt underwent L hip hemiarthroplasty POD 1 and has posterior hip precautions. pt is WBAT on LLE. pt has dx dementia and has difficulty following directions and unable to follow precautions. pt requiring max A x 3 to total A x 3 with mobility at this time. Recommending mechanical lift transfers with nursing staff. will continue to assess progress. pt may need SNF rehab to improve mobility and eventually will need alf care placement to a memory care facility. Goals Bed Mobility Goal Moderate Assistance Transfer Goal Moderate Assistance,Front Wheeled Walker Gait Goal Moderate Assistance,Front Wheel Walker Gait Distance 25 Other Goals improve bed mobility, transfers, ambulation using FWW ~ 100 ft SBA Days to Meet Goals 10 Frequency of Treatment Frequency Of Treatment Once a Day Treatment Plan Physical Therapy Treatment Plan Bed Mobility Training,Transfer Training,Gait Training, Therapeutic Exercise,Balance Retraining,Post Op Education, Discharge Planning,Hot or Cold Pack,Neuromuscular Re-ed, Coordination Retraining,Manual Therapy Precautions Posterior Hip Precautions No Hip Flexion > 90 degrees,No Hip Internal Rotation,No Hip Adduction Weight Bearing Status Weight Bearing Status Weight Bear as Tolerated Allowed Weight Bearing Amount (enter % LLE WBAT or #) (%) Recommendations To Nursing Amount of Assist Needed Mechanical Lift Discharge Recommendations PT Discharge Recommendations SNF Rehab Transportation Needs at Discharge Wheelchair/Cabulance,Stretcher /Ambulance - PT assist 3
--- NOTE | 2024-07-18 12:05 | OT.IP.EVAL ---
Current Diagnoses Dementia in other diseases classified elsewhere, unspecified severity, without behavioral disturbance, psychotic disturbance, mood disturbance, and anxiety (07/15/24) Alzheimer's disease, unspecified (07/15/24) Other osteoporosis with current pathological fracture, left femur, initial encounter for fracture (07/15/24) Elevated blood-pressure reading, without diagnosis of hypertension (07/15/24) Fracture of unspecified part of neck of left femur, initial encounter for closed fracture (07/15/24) Unspecified fall, initial encounter (07/15/24) Surgery Performed Operation Date: 07/17/24 16:15 Actual Procedures p LEFT HIP UNIPOLAR, PARTIAL HIP REPLACEMENT CEMENTED S&N(Left) - Elise Earl MD Past Medical History (Last Reviewed 07/18/24 @ 07:44 by Zen Whitney MD) 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 Elevated blood pressure reading without diagnosis of hypertension GERD without esophagitis Menopausal syndrome Mixed hyperlipidemia Osteopenia Urinary incontinence Occupational Therapy Inpatient Evaluation/Re-Eval M1 PT/OT-IP Prior Functional Status Start: 07/18/24 12:28 Freq: NEEDED Status: Active Protocol: Document 07/18/24 12:00 [facility] (Rec: 07/18/24 13:25 [facility] Desktop) Medical Review Prior Functional Status Medical History Reviewed Yes Communication pt with dx dementia and with confusion; unable to follow directions and is restless Mobility and Gait spouse in room and provided pt 's PLOF: stated that pt is modified independent with bed mobility, transfers and ambulation when she remembers or when spouse hands it to her otherwise, pt furniture cruises and shuffles per spouse; spouse stated that if pt is unsteady, he uses a 4WW as a w/c to move her around pt has h/o falls Activities of Daily Living and IADL's Per pt's able to do ADL needs with supervision due to her dementia. Pt showers at [facility] an adult day [facility] Social History Household Members spouse Living Arrangements House Number of Floors (Floors) One Floor Number of Stairs To Enter/Railing? 3 steps without rails from the front 3 steps with L rail ascending from the garage Home Environment Standard Height Toilet,Walk in Shower Home Equipment Front Wheel Walker,Four Wheel Walker,Straight Cane,Grab Bars In Shower Additional Social History Comment spouse stated that pt goes to [facility] 5x/week from 10am to 3pm and she gets a shower when she is there M2 OT-IP Current Condition Start: 07/18/24 13:02 Freq: Status: Active Protocol: Document 07/18/24 12:00 [facility] (Rec: 07/18/24 13:25 [facility] Desktop) Occupational Therapy Current Condition Current Condition Evaluation Date 07/18/24 Treatment Diagnosis S/P Left hip Unipolar Diagnosis Onset Date 07/15/24 Post Operative Precautions Posterior Hip Precautions No Hip Flexion > 90 degrees,No Hip Internal Rotation,No Hip Adduction M3 OT- IP Subjective and Pain Start: 07/18/24 13:02 Freq: Status: Active Protocol: Document 07/18/24 12:00 [facility] (Rec: 07/18/24 13: [facility] Desktop) OT- Subjective Occupational Therapy Visit Type Type Initial Evaluation Visit Start Time 12:00 Visit Stop Time 12:25 Occupational Therapy Visit Comments Patient Comments Pt seen with PT and nurse. Pt' s also present in the room. OT Pain Assessment Pain When Pain Assessed During Mobility Pain Present Pain Present Unable to Respond Location Left Hip Pain Behaviors Facial Grimacing,Guarding M4 OT- IP ADL's Start: 07/18/24 13:02 Freq: Status: Active Protocol: Document 07/18/24 12:00 [facility] (Rec: 07/18/24 13:25 [facility] Desktop) OT [id number] Comments OT Self-Feeding Comments NOt at meal time. Pt easily distracted and fidgeting with her pierce, gown, and sheets. Best to have 1:1 feeder for safety at this time. OT ADL-Grooming Comments OT Grooming Comments Pt able to wash her hands with the wash cloth after set-up. OT ADL-Oral Care Comments Oral Care Comments Not performed. OT ADL-Dressing General Eval Lower Body Dressing Ability Total Assistance OT ADL-Toileting General Evaluation Toileting Ability Total Assistance Comments OT Toileting Comments Pierce OT ADL-Bathing Comments OT Bathing Comments Sponge bath more appropriate at this time. M5 OT- IP IADL's Start: 07/18/24 13:02 Freq: Status: Active Protocol: Document 07/18/24 12:00 [facility] (Rec: 07/18/24 13:25 [facility] Desktop) OT-Instrumental Activities of Daily Living Home Safety Awareness Awareness of Need for Assistance at Home Decreased Awareness Ability to Problem Solve Emergency Unable to Problem Solve Situations Home Safety Comments Pt has dementia and relies on her for all needs. Medication Management Medication Management Caregiver Administers Money Management Money Management Caregiver Provides Assistance Meal Preparation Meal Preparation Caregiver Provides Assist Etl Database Developer Etl Database Developer Caregiver Provides Assist M6 OT- IP Functional Cognition Start: 07/18/24 13:02 Freq: Status: Active Protocol: Document 07/18/24 12:00 [facility] (Rec: 07/18/24 13:25 [facility] Desktop) Cognitive Factors Limiting Selfcare Function Cognitive Ability Level of Alertness Alert,Confusional State Patient Orientation Name Attention Span Ability Capable of Focused Attention, Unable to Focus,Unable to Sustain Attention Ability to Follow Commands Able to Follow One Step Commands with Increased Time, Able to Follow One Step Commands with Repetition Memory Description Short Term Impaired,Residential Impaired,Working Impaired Cognitive Comments Cognitive Assessment Comments Pt just orientated to her name . Pt has difficulty to follow commands and needing step by step commands to follow. Pt likes hold/grab therapists hands. Pt has no awareness of hip precautions and tends to fidget a lot in the recliner and is high risk of re- injurying her left hip as pt has posterior precautions. OT- Vision and Hearing OT- Hearing Assessment OT- Hearing Assessment Hearing Impaired,Use of Hearing Aids OT- Vision Assessment Vision Assessment Comments Pt's states her hearing aids at home. M7 OT- IP Mobility and Balance Start: 07/18/24 13:02 Freq: Status: Active Protocol: Document 07/18/24 12:00 [facility] (Rec: 07/18/24 13:25 [facility] Desktop) OT- Bed Mobility Assessment Supine to Sit Supine to Sit Assist Maximum Assistance,2 Person Assistance Scooting Scooting to Edge of Bed Maximum Assistance,2 Person Assistance OT-Transfer Assessment Sit to and From Stand Sit to and from Stand Maximum Assistance,2 Person Assistance Transfers Transfer Ability Maximum Assistance,Total Assistance,2 Person Assistance Technique Transfer Destination Bed,Chair Transfer Technique Stand Step Pivot Devices Transfer Assistive Devices Gait Belt,Front Wheeled Walker Comments Mobility Comments MAX A x 3 to get from supine to sit and also to ensure follow through of pt's posterior precautions. Sit to stand MAX AX 2-3 and Total Assist for transfer with FWW to the recliner. Pt will benefit from marium lift for transfers. While in bed and in the recliner, pt's left leg tends to be internally rotated. OT- Balance Assessment Sitting Balance and Reactions Static Sitting Balance Ability Fair Standing Balance and Reactions Static Standing Balance Ability Poor Dynamic Standing Balance Ability Poor M8 OT- IP Objective Assessments Start: 07/18/24 13:02 Freq: Status: Active Protocol: Document 07/18/24 12:00 [facility] (Rec: 07/18/24 13:25 [facility] Desktop) OT Strength Comments Strength Comments BUE strength at least 3-/5 per pt's assist with mobility needs. M9 OT- IP Assessment and Plan Start: 07/18/24 13:02 Freq: Status: Active Protocol: Document 07/18/24 12:00 [facility] (Rec: 07/18/24 13:25 [facility] Desktop) OT Summary Assessment and Plan Potential Rehabilitation Potential Fair Analytic Complexity at Evaluation High Summary OT Impairments Pain,Range of Motion,Strength, Balance,Functional Cognition, Functional Mobility,Self- Feeding,Grooming,Dressing, Toileting,Bathing,Toilet Transfers,Shower Transfers, Activity Tolerance Progress Towards Goals Slow Progress due to Pain,Slow Progress due to Medical Issues,Slow Progress due to Activity Tolerance,Slow Progress due to Cognition Assessment Summary Pt high complexity and main barriers are pain, steps, hx of dementia and has difficulty to follow commands, now needing use of marium lift for transfers. At this time pt just orientated to her name and has poor safety awareness for her needs, especially for posterior hip precautions. Pt' s has a bad back and not physically capable to assist pt at this time. Pt would benefit from skilled rehab to maximize her mobility needs and then best off at exterminator helper termite care/memory care facility. Goals Self-Feeding Goal Standby Assistance Grooming Goal Standby Assistance Dressing Goal Standby Assistance Toileting Goal Moderate Assistance Bathing Goal Moderate Assistance Toilet Transfer Goal Moderate Assistance Shower Transfer Goal Moderate Assistance Days to Meet Goals 25 Frequency of Treatment Other frequency 3-5x/week Treatment Plan OT Treatment Plan ADL Training,Functional Cognition Training,Functional Mobility,Patient/Family Education,Discharge Planning Other Treatment Recommendations and Next transfer to [facility] with MAX AX 2 Treatment Focus with FWW Discharge Recommendations OT Discharge Recommendations SNF Rehab,[facility] Transportation Needs at Discharge Stretcher/Ambulance
--- NOTE | 2024-07-18 12:37 | CM.DPC ---
DCP Cont. Reviewed EMR and team rounds for status updates. Met with pt/spouse, discussed spouse's concerns re: their financial insecurity, and tight budget living on Social Security. He states that he injured/threw his back out trying to help pt when she fell, prior to her hospitalization, and has realized his own limitations in providing care for her alone at home. Discussed Medicaid LTC, as well as in-home JO[facility]. Provided pt with the Medicaid application for in-home [facility]/LTC, and explained what to expect next. Discussed a plan for home d/c with Heri GUTHRIE. Provided spouse the contact information for [employer] in [place], so he can access the Family Caregiver Support Program, as well as energy assistance for utility bills. Plan to meet with him tomorrow and will fax the application in along with the [facility] expedited application.
[2024-07-18] MEDS: OXYCODONE IR 5 MG TABLET PO (15:37)
[2024-07-18 20:00] VITALS: BP 126/85; PULSE 109; RESP 16; TEMP 36.9; O2SAT 92
[2024-07-18] MEDS: QUETIAPINE 25 MG TABLET 12.5 MG PO (20:02)
[2024-07-19] MEDS: HYDROMORPHONE 0.5 MG INJ IV ×4 (01:01→23:15)
[2024-07-19] MEDS: LACTATED RINGERS 1,000 ML 100 ML IV ×2 (06:35→17:35)
--- NOTE | 2024-07-19 07:27 | PM.PN.1 ---
Subjective Subjective Interval history: S: She was sedated and comfortable at the time of my evaluation. She was quite agitated earlier, pulling at lines including her catheter. She also tried to remove her wound dressing. She was also having significant hip pain. Exam Vital Signs (past 8 hours): Fraction of Inspired Oxygen 28 SaO2/FiO2 Ratio 353 Oxygen Delivery Method Room Air Oxygen Flow Rate 0 Narrative Exam Narrative: Sedated, minimal speech. She smiled at me. Lungs are clear, normal rate and effort. Heart is regular, no murmur gallop or rub. Abdomen is soft, non distended. Extremities are free of edema. 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 Left femoral neck fracture due to ground level fall, likely pathologic due to underlying osteoporosis. Present on admission and active. 2. Dementia, moderately advanced. Present on admission and active. 3. Elevated blood pressure, possibly related to pain. Present on admission and active. 4. GERD. Present on admission and active. 5. Acute cystitis, present on admission and active. PLAN: -continue antibiotics for urinary tract infection. Cultures reveal a pansensitive E coli. -the patient's has severe cognitive impairment which may prohibit her participation with therapies. -Pain control will be managed and monitored today. DISCHARGE PLANNING in progress and difficult. Time-Based Coding :: [TOTAL MINUTES] spent with patient and on the chart (including review of chart, obtaining history, exam, reviewing outside data, placing orders, documenting exam and treatment plan, and counseling patient) on [DATE]. Quality VTE Deep Vein Thrombosis/Pulmonary Embolism Present on Admission: No
[2024-07-19] MEDS: cefTRIAXone 1,000 MG in SODIUM CHLORIDE 0.9% 100 ML 200 MG IV (08:18)
[2024-07-19] MEDS: QUETIAPINE 25 MG TABLET 12.5 MG PO (08:26)
[2024-07-19] MEDS: ASPIRIN EC 81 MG TABLET PO (08:26)
[2024-07-19 09:54] VITALS: BP 138/81; PULSE 104; RESP 16; TEMP 37.2; O2SAT 93
--- NOTE | 2024-07-19 11:34 | CM.DPC ---
DCP Cont. Reviewed EMR and team rounds for status updates. Pt will be evaluated by OT/PT today. Called and requested SNF auth from [place], pending determination. [facility] can accept once we have an auth.
--- NOTE | 2024-07-19 14:40 | OT.IP.TRT ---
Current Diagnoses Dementia in other diseases classified elsewhere, unspecified severity, without behavioral disturbance, psychotic disturbance, mood disturbance, and anxiety (07/15/24) Alzheimer's disease, unspecified (07/15/24) Other osteoporosis with current pathological fracture, left femur, initial encounter for fracture (07/15/24) Elevated blood-pressure reading, without diagnosis of hypertension (07/15/24) Fracture of unspecified part of neck of left femur, initial encounter for closed fracture (07/15/24) Unspecified fall, initial encounter (07/15/24) Surgery Performed Operation Date: 07/17/24 16:15 Actual Procedures p LEFT HIP UNIPOLAR, PARTIAL HIP REPLACEMENT CEMENTED S&N(Left) - Elise Earl MD Occupational Therapy Treatment Note M2 OT-IP Current Condition Start: 07/18/24 13:02 Freq: Status: Active Protocol: Document 07/18/24 12:00 [facility] (Rec: 07/18/24 13:25 [facility] Desktop) Occupational Therapy Current Condition Current Condition Evaluation Date 07/18/24 Treatment Diagnosis S/P Left hip Unipolar Diagnosis Onset Date 07/15/24 Post Operative Precautions Posterior Hip Precautions No Hip Flexion > 90 degrees,No Hip Internal Rotation,No Hip Adduction M3 OT- IP Subjective and Pain Start: 07/18/24 13:02 Freq: Status: Active Protocol: Document 07/19/24 14:46 [facility] (Rec: 07/19/24 14:58 [facility] Desktop) OT- Subjective Occupational Therapy Visit Type Type Treatment Note Visit Start Time 14:20 Visit Stop Time 14:47 Occupational Therapy Visit Comments Patient Comments Attempted see pt for therapy. OT Pain Assessment Pain When Pain Assessed During Mobility Pain Present Pain Present Pain Reported Location Left Hip Pain Behaviors Guarding,Holding Area M4 OT- IP ADL's Start: 07/18/24 13:02 Freq: Status: Active Protocol: Document 07/19/24 14:46 [facility] (Rec: 07/19/24 14:58 [facility] Desktop) OT GBI-Incr-Dheused Comments OT Self-Feeding Comments Per nursing pt has not wanted to eat. Attempted to straw for soda on her lips and pt refusing x2. OT ADL-Grooming Comments OT Grooming Comments Placed a wash cloth in her right hand so able to wash her face or hands. Pt not able to do and resisting movements as well. OT ADL-Oral Care Comments Oral Care Comments Not performed. OT ADL-Dressing General Eval Lower Body Dressing Ability Total Assistance Areas Needing Assistance Socks OT ADL-Toileting General Evaluation Toileting Ability Total Assistance Comments OT Toileting Comments [place] OT ADL-Bathing Comments OT Bathing Comments Sponge bath more appropriate at this time. M5 OT- IP IADL's Start: 07/18/24 13:02 Freq: Status: Active Protocol: Document 07/18/24 12:00 [facility] (Rec: 07/18/24 13:25 [facility] Desktop) OT-Instrumental Activities of Daily Living Home Safety Awareness Awareness of Need for Assistance at Home Decreased Awareness Ability to Problem Solve Emergency Unable to Problem Solve Situations Home Safety Comments Pt has dementia and relies on her for all needs. Medication Management Medication Management Caregiver Administers Money Management Money Management Caregiver Provides Assistance Meal Preparation Meal Preparation Caregiver Provides Assist Golf Cart Attendant Golf Cart Attendant Caregiver Provides Assist M6 OT- IP Functional Cognition Start: 07/18/24 13:02 Freq: Status: Active Protocol: Document 07/19/24 14:46 [facility] (Rec: 07/19/24 14:58 [facility] Desktop) Cognitive Factors Limiting Selfcare Function Cognitive Ability Level of Alertness Confusional State,Drowsy Patient Orientation Name Attention Span Ability Unable to Focus,Unable to Sustain Attention Cognitive Comments Cognitive Assessment Comments Pt able to respond to her name at times, but very drowsy. Pt not willing to move and would repeat no when trying to reposition pt and do gentle PROM as her joints are stiff and resisting. M7 OT- IP Mobility and Balance Start: 07/18/24 13:02 Freq: Status: Active Protocol: Document 07/18/24 12:00 [facility] (Rec: 07/18/24 13:25 [facility] Desktop) OT- Bed Mobility Assessment Supine to Sit Supine to Sit Assist Maximum Assistance,2 Person Assistance Scooting Scooting to Edge of Bed Maximum Assistance,2 Person Assistance OT-Transfer Assessment Sit to and From Stand Sit to and from Stand Maximum Assistance,2 Person Assistance Transfers Transfer Ability Maximum Assistance,Total Assistance,2 Person Assistance Technique Transfer Destination Bed,Chair Transfer Technique Stand Step Pivot Devices Transfer Assistive Devices Gait Belt,Front Wheeled Walker Comments Mobility Comments MAX A x 3 to get from supine to sit and also to ensure follow through of pt's posterior precautions. Sit to stand MAX AX 2-3 and Total Assist for transfer with FWW to the recliner. Pt will benefit from marium lift for transfers. OT- Balance Assessment Sitting Balance and Reactions Static Sitting Balance Ability Fair Standing Balance and Reactions Static Standing Balance Ability Poor Dynamic Standing Balance Ability Poor M8 OT- IP Objective Assessments Start: 07/18/24 13:02 Freq: Status: Active Protocol: Document 07/19/24 14:46 [facility] (Rec: 07/19/24 14:58 [facility] Desktop) OT-Muscle Tone Assessment Comments Muscle Tone Comments Pt resisting movements and guarding from allowing therapists to work with her. Noted right shoulder catching at times during gentle ROM. M9 OT- IP Assessment and Plan Start: 07/18/24 13:02 Freq: Status: Active Protocol: Document 07/19/24 14:46 [facility] (Rec: 07/19/24 14:58 [facility] Desktop) OT Summary Assessment and Plan Potential Rehabilitation Potential Fair Analytic Complexity at Evaluation High Summary OT Impairments Pain,Range of Motion,Strength, Balance,Functional Cognition, Functional Mobility,Self- Feeding,Grooming,Dressing, Toileting,Bathing,Toilet Transfers,Shower Transfers, Activity Tolerance Progress Towards Goals Slow Progress due to Pain,Slow Progress due to Medical Issues,Slow Progress due to Activity Tolerance,Slow Progress due to Cognition Assessment Summary Pt very drowsy and not able to wash her face or wanting to drink her soda when straw placed on her lips. Able to assist to reposition pt in the recliner with pillows. Pt would benefit from SNF to maximize her needs and then benefit from LTC/memory care. Goals Self-Feeding Goal Standby Assistance Grooming Goal Standby Assistance Dressing Goal Standby Assistance Toileting Goal Moderate Assistance Bathing Goal Moderate Assistance Toilet Transfer Goal Moderate Assistance Shower Transfer Goal Moderate Assistance Days to Meet Goals 30 Frequency of Treatment Other frequency 3-5x/week Treatment Plan OT Treatment Plan ADL Training,Functional Cognition Training,Functional Mobility,Patient/Family Education,Discharge Planning Other Treatment Recommendations and Next Pt to be able to do oral care Treatment Focus need while sitting up with ALLI. Discharge Recommendations OT Discharge Recommendations SNF Rehab,LTAC Transportation Needs at Discharge Stretcher/Ambulance
--- NOTE | 2024-07-19 14:45 | PT.IPTN ---
Current Diagnoses Dementia in other diseases classified elsewhere, unspecified severity, without behavioral disturbance, psychotic disturbance, mood disturbance, and anxiety (07/15/24) Alzheimer's disease, unspecified (07/15/24) Other osteoporosis with current pathological fracture, left femur, initial encounter for fracture (07/15/24) Elevated blood-pressure reading, without diagnosis of hypertension (07/15/24) Fracture of unspecified part of neck of left femur, initial encounter for closed fracture (07/15/24) Unspecified fall, initial encounter (07/15/24) Surgery Performed Operation Date: 07/17/24 16:15 Actual Procedures p LEFT HIP UNIPOLAR, PARTIAL HIP REPLACEMENT CEMENTED S&N(Left) - Elise Earl MD Physical Therapy Treatment Note M2 PT-IP Current Condition Start: 07/18/24 12:28 Freq: NEEDED Status: Active Protocol: Document 07/18/24 11:50 AB (Rec: 07/18/24 12:58 AB [id number]) Physical Therapy Current Condition Current Condition Evaluation Date 07/18/24 Treatment Diagnosis s/p L hip hemiarthroplasty posterior; difficulty in walking Onset Date 07/15/24 M3 PT-IP Subjective Start: 07/18/24 12:28 Freq: NEEDED Status: Active Protocol: Document 07/19/24 14:45 [facility] (Rec: 07/19/24 14:58 [facility] Desktop) Subjective Physical Therapy Visit Type Type Treatment Note Visit Start Time 14:20 Visit Stop Time 14:45 Notes co-treated with OT due to pt very confused Number of CRIMINAL PSYCHOLOGIST Visits 0 Physical Therapy Visit Comments Patient Comments she says no intermittently with attempts at movement, she can not answer questions Therapy Pain Assessment Location Left Hip Intensity 5 Scale Used Mcdaniel-Rosen (Faces) Description With Movement Pain Behaviors Guarding,Wincing Pain Management Techniques Elevation,Re-positioning M5 PT-IP Objective Assessments Start: 07/18/24 12:28 Freq: NEEDED Status: Active Protocol: Document 07/18/24 11:50 AB (Rec: 07/18/24 12:58 AB [id number]) Orientation Orientation/Cognition Level of Alertness Confusional State Safety Awareness Decreased Safety Awareness Memory Description Short Term Impaired,Senior Living Impaired Strength Comments Strength Comments NT: pt unable to follow directions Muscle Tone Muscle Tone WNL Yes M6 PT-IP Treatment Start: 07/18/24 12:28 Freq: NEEDED Status: Active Protocol: Document 07/19/24 14:45 [facility] (Rec: 07/19/24 14:58 [facility] Desktop) Physical Therapy Treatment Exercises Exercises Ankle Pumps,Heel Slides,Seated Knee Flexion/Extension Other Treatments Other Treatment Performed assisted LE movements with pt being resistant and tactile defensive, slow movements and reassurance were helpful M7 PT-IP Assessment and Plan Start: 07/18/24 12:28 Freq: NEEDED Status: Active Protocol: Document 07/19/24 14:45 DLM (Rec: 07/19/24 14:58 [facility] Desktop) PT Summary Assessment and Plan Summary Impairments Pain,ROM,Strength,Balance, Coordination,Sensation,Tone, Cognition,Bed Mobility, Transfers,Gait,Activity Tolerance Progress Towards Goals Slow Progress due to Activity Tolerance Assessment Summary Zehra is up to the recliner via ceiling lift with nursing earlier today. She is sitting with eyes closed and leaning/ pushing to left side. She did not open her eyes even when speaking to use. She has minimal verbalizations but said No and resisted any functional movements. She gradually allowed assisted ROM to all extremities with varying amounts of resisting the movements. She reports pain with moving left LE more than other extremities. Assisted pt to return head/ neck to neutral position instead of left lean. Repositioned pt in recliner but pt not able to assist. Pt declined all food and drink and is tactile defensive when straw brought to her lips. Pt is very limited in her participation in Physical Therapy at this time. Continue to recommend SNF rehab at discharge to determine if she can increase her participation in activity. She is not safe to discharge home. Goals Bed Mobility Goal Moderate Assistance Transfer Goal Moderate Assistance,Front Wheeled Walker Gait Goal Moderate Assistance,Front Wheel Walker Gait Distance 25 Other Goals improve bed mobility, transfers, ambulation using FWW ~ 100 ft SBA Days to Meet Goals 10 Frequency of Treatment Frequency Of Treatment Once a Day Treatment Plan Physical Therapy Treatment Plan Bed Mobility Training,Transfer Training,Gait Training, Therapeutic Exercise,Balance Retraining,Post Op Education, Discharge Planning,Hot or Cold Pack,Neuromuscular Re-ed, Coordination Retraining Precautions Posterior Hip Precautions No Hip Flexion > 90 degrees,No Hip Internal Rotation,No Hip Adduction Weight Bearing Status Weight Bearing Status Weight Bear as Tolerated Allowed Weight Bearing Amount (enter % LLE WBAT or #) (%) Recommendations To Nursing Amount of Assist Needed Mechanical Lift Discharge Recommendations PT Discharge Recommendations SNF Rehab - PT assist 2-3
--- NOTE | 2024-07-19 20:47 | PC.NURSE ---
Addendum entered by Seth Earl R.N. 07/19/24 21:37: RN attempted again and reorienting patient and attempting to administer medications. Pt refused and refused ice cream. 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 RN attempted to orient Patient to place,situation and importance of taking medication. Patient still refused. pmo consultant aware.
[2024-07-20] MEDS: HYDROMORPHONE 0.5 MG INJ IV ×3 (06:20→20:19)
--- NOTE | 2024-07-20 07:31 | PM.PN.1 ---
Subjective Subjective Interval history: Summary: 84-year-old with significant dementia presents with a ground level fall and hip fracture. Status post ORIF. Difficulties following with therapies to rehabilitate. She lives with her . She declined her pills this morning and is not taking very much oral intake. Subjective: She was awake and able to interact a little bit. I did discuss the situation with her . We are going to give her a couple of days to see if she can advance to 2 person assist and meet criteria to be accepted at the [facility] facility, [facility]. Otherwise I informed the that hospice at home may be a reasonable option. Exam Vital Signs (past 8 hours): Fraction of Inspired Oxygen 28 SaO2/FiO2 Ratio 353 Oxygen Delivery Method Room Air Oxygen Flow Rate 0 Narrative Exam Narrative: NAD, alert and calm. Lungs are clear, normal rate and effort. Heart is regular, no murmur gallop or rub. Abdomen is soft, non distended. Extremities are free of edema. 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 Left femoral neck fracture due to ground level fall, likely pathologic due to underlying osteoporosis. Present on admission and active. 2. Dementia, moderately advanced. Present on admission and active. 3. Elevated blood pressure, possibly related to pain. Present on admission and active. 4. GERD. Present on admission and active. 5. Acute cystitis, present on admission and active. PLAN: -continue antibiotics for urinary tract infection. Cultures reveal a pansensitive E coli. 3 days Ceftriaxone. -the patient's has severe cognitive impairment which may prohibit her participation with therapies. -we will see how she progresses between now and Tuesday. If she can progress to 2 person assist she can go to [facility] for rehabilitative efforts. Otherwise she was likely appropriate for hospice at home. I did discuss this general thinking with her . They have been for 62 years. MARI: 07/23. SNF vs home with Hospice. Time-Based Coding :: [TOTAL MINUTES] spent with patient and on the chart (including review of chart, obtaining history, exam, reviewing outside data, placing orders, documenting exam and treatment plan, and counseling patient) on [DATE]. Quality VTE Deep Vein Thrombosis/Pulmonary Embolism Present on Admission: No
[2024-07-20 08:00] VITALS: BP 161/75; PULSE 93; RESP 19; TEMP 36.8; O2SAT 97
[2024-07-20] MEDS: cefTRIAXone 1,000 MG in SODIUM CHLORIDE 0.9% 100 ML 200 MG IV (08:39)
[2024-07-20] MEDS: SODIUM CHLORIDE 0.9% FLUSH 10 ML IV ×2 (08:40→20:20)
--- NOTE | 2024-07-20 12:00 | PT.IPTN ---
Current Diagnoses Dementia in other diseases classified elsewhere, unspecified severity, without behavioral disturbance, psychotic disturbance, mood disturbance, and anxiety (07/15/24) Alzheimer's disease, unspecified (07/15/24) Other osteoporosis with current pathological fracture, left femur, initial encounter for fracture (07/15/24) Elevated blood-pressure reading, without diagnosis of hypertension (07/15/24) Fracture of unspecified part of neck of left femur, initial encounter for closed fracture (07/15/24) Unspecified fall, initial encounter (07/15/24) Surgery Performed Operation Date: 07/17/24 16:15 Actual Procedures p LEFT HIP UNIPOLAR, PARTIAL HIP REPLACEMENT CEMENTED S&N(Left) - Elise Earl MD Physical Therapy Treatment Note M2 PT-IP Current Condition Start: 07/18/24 12:28 Freq: NEEDED Status: Active Protocol: Document 07/18/24 11:50 AB (Rec: 07/18/24 12:58 AB [id number]) Physical Therapy Current Condition Current Condition Evaluation Date 07/18/24 Treatment Diagnosis s/p L hip hemiarthroplasty posterior; difficulty in walking Onset Date 07/15/24 M3 PT-IP Subjective Start: 07/18/24 12:28 Freq: NEEDED Status: Active Protocol: Document 07/20/24 12:00 AB (Rec: 07/20/24 12:45 AB [id number]) Subjective Physical Therapy Visit Type Type Treatment Note Visit Start Time 12:00 Visit Stop Time 12:15 Number of BUS CLEANER Visits 0 Therapy Pain Assessment Pain When Pain Assessed During Mobility Pain Present Pain Present Pain Reported Location Left Hip Scale Used pain scale not stated Pain Behaviors Facial Grimacing,Guarding, Restlessness,Wincing Pain Management Techniques Distraction,Modification of Treatment,Re-positioning, Timing of Activity with Medications M4 PT-IP Mobility and Gait Start: 07/18/24 12:28 Freq: NEEDED Status: Active Protocol: Document 07/20/24 12:00 AB (Rec: 07/20/24 12:45 AB [id number]) PT-Transfer Assessment Comments Mobility Comments pt in bed. LLE in IR and pt unaware of her posterior hip precautions.. Attempted to get pt up. attempted to position and assist pt with mobility but pt gets agitated when moved or repositioned, taking her gown off and pulling on IV/pierce requiring max A x 2 to prevent on pulling on IV/pierce. pt unable to comprehend and unable to be redirected. pt shouting to let go and unable to follow instructions. positioned pt in bed total A x 2 and max cues. pillows positioned to prevent LLE in adduction and IR. call light and table placed next to pt. bed alarm on. M5 PT-IP Objective Assessments Start: 07/18/24 12:28 Freq: NEEDED Status: Active Protocol: Document 07/18/24 11:50 AB (Rec: 07/18/24 12:58 AB [id number]) Orientation Orientation/Cognition Level of Alertness Confusional State Safety Awareness Decreased Safety Awareness Memory Description Short Term Impaired,Skilled Nursing Impaired Strength Comments Strength Comments NT: pt unable to follow directions Muscle Tone Muscle Tone WNL Yes M6 PT-IP Treatment Start: 07/18/24 12:28 Freq: NEEDED Status: Active Protocol: Document 07/19/24 14:45 DLM (Rec: 07/19/24 14:58 [facility] Desktop) Physical Therapy Treatment Exercises Exercises Ankle Pumps,Heel Slides,Seated Knee Flexion/Extension Other Treatments Other Treatment Performed assisted LE movements with pt being resistant and tactile defensive, slow movements and reassurance were helpful M7 PT-IP Assessment and Plan Start: 07/18/24 12:28 Freq: NEEDED Status: Active Protocol: Document 07/20/24 12:00 AB (Rec: 07/20/24 12:45 AB [id number]) PT Summary Assessment and Plan Potential Rehabilitation Potential Fair Summary Impairments Pain,ROM,Strength,Balance, Coordination,Sensation,Tone, Cognition,Bed Mobility, Transfers,Gait,Activity Tolerance Progress Towards Goals Slow Progress due to Medical Issues,Slow Progress - Other Assessment Summary Pt unable to participate in functional mobility today with increase agitation when positioned or assisted to mobility. pt pulls her gown off and pulls on IV/pierce and needed total A x 2 for safety. pt with dx dementia and unable to comprehend and unable to be redirected to task. Talked to Dr. Whitney regarding pt's cognition affecting carryover and safety during PT session. hospitalist wants PT to check on pt again tomorrow to see if pt is more appropriate for PT and if not, PT will d/c tomorrow. manager office services also made aware. Goals Bed Mobility Goal Moderate Assistance Transfer Goal Moderate Assistance,Front Wheeled Walker Gait Goal Moderate Assistance,Front Wheel Walker Gait Distance 25 Other Goals improve bed mobility, transfers, ambulation using FWW ~ 100 ft SBA Days to Meet Goals 10 Frequency of Treatment Frequency Of Treatment Once a Day Treatment Plan Physical Therapy Treatment Plan Bed Mobility Training,Transfer Training,Gait Training, Therapeutic Exercise,Balance Retraining,Post Op Education, Discharge Planning,Hot or Cold Pack,Neuromuscular Re-ed, Coordination Retraining Precautions Posterior Hip Precautions No Hip Flexion > 90 degrees,No Hip Internal Rotation,No Hip Adduction Weight Bearing Status Weight Bearing Status Weight Bear as Tolerated Allowed Weight Bearing Amount (enter % LLE WBAT or #) (%) Recommendations To Nursing Amount of Assist Needed Mechanical Lift Discharge Recommendations PT Discharge Recommendations SNF Rehab - PT assist 3
--- NOTE | 2024-07-20 12:15 | OT.IP.TRT ---
Current Diagnoses Dementia in other diseases classified elsewhere, unspecified severity, without behavioral disturbance, psychotic disturbance, mood disturbance, and anxiety (07/15/24) Alzheimer's disease, unspecified (07/15/24) Other osteoporosis with current pathological fracture, left femur, initial encounter for fracture (07/15/24) Elevated blood-pressure reading, without diagnosis of hypertension (07/15/24) Fracture of unspecified part of neck of left femur, initial encounter for closed fracture (07/15/24) Unspecified fall, initial encounter (07/15/24) Surgery Performed Operation Date: 07/17/24 16:15 Actual Procedures p LEFT HIP UNIPOLAR, PARTIAL HIP REPLACEMENT CEMENTED S&N(Left) - Elise Earl MD Occupational Therapy Treatment Note M2 OT-IP Current Condition Start: 07/18/24 13:02 Freq: Status: Active Protocol: Document 07/18/24 12:00 [facility] (Rec: 07/18/24 13:25 [facility] Desktop) Occupational Therapy Current Condition Current Condition Evaluation Date 07/18/24 Treatment Diagnosis S/P Left hip Unipolar Diagnosis Onset Date 07/15/24 Post Operative Precautions Posterior Hip Precautions No Hip Flexion > 90 degrees,No Hip Internal Rotation,No Hip Adduction M3 OT- IP Subjective and Pain Start: 07/18/24 13:02 Freq: Status: Active Protocol: Document 07/20/24 12:02 [facility] (Rec: 07/20/24 13:15 [facility] Desktop) OT- Subjective Occupational Therapy Visit Type Type Treatment Note Visit Start Time 12:01 Visit Stop Time 12:15 Occupational Therapy Visit Comments Patient Comments Attempted to see pt with PT for ADL and mobility needs. OT Pain Assessment Pain When Pain Assessed During Mobility Pain Present Pain Present Pain Reported Location Left Hip Pain Behaviors Calling Out,Facial Grimacing, Guarding,Holding Area M4 OT- IP ADL's Start: 07/18/24 13:02 Freq: Status: Active Protocol: Document 07/20/24 12:02 [facility] (Rec: 07/20/24 13:15 [facility] Desktop) OT CGA-Yhny-Zjcncvn Comments OT Self-Feeding Comments Not at meal time. Per nursing has refused to eat. OT ADL-Grooming Comments OT Grooming Comments Attempted to place wash cloth in her hand so able to wash her hands or face. Pt not able to follow command and just drops the wash cloth. OT ADL-Oral Care Comments Oral Care Comments Not performed. OT ADL-Dressing General Eval Upper Body Dressing Ability Total Assistance Comments OT Dressing Comments Total assist, pt constantly trying to pull her gown off and fidget with her pierce tubing. OT ADL-Toileting General Evaluation Toileting Ability Total Assistance Comments OT Toileting Comments Pierce OT ADL-Bathing Comments OT Bathing Comments Sponge bath more appropriate at this time. M5 OT- IP IADL's Start: 07/18/24 13:02 Freq: Status: Active Protocol: Document 07/18/24 12:00 [facility] (Rec: 07/18/24 13:25 [facility] Desktop) OT-Instrumental Activities of Daily Living Home Safety Awareness Awareness of Need for Assistance at Home Decreased Awareness Ability to Problem Solve Emergency Unable to Problem Solve Situations Home Safety Comments Pt has dementia and relies on her for all needs. Medication Management Medication Management Caregiver Administers Money Management Money Management Caregiver Provides Assistance Meal Preparation Meal Preparation Caregiver Provides Assist Quality Control Microbiologist Quality Control Microbiologist Caregiver Provides Assist M6 OT- IP Functional Cognition Start: 07/18/24 13:02 Freq: Status: Active Protocol: Document 07/20/24 12:02 [facility] (Rec: 07/20/24 13:15 [facility] Desktop) Cognitive Factors Limiting Selfcare Function Cognitive Ability Level of Alertness Alert,Confusional State Patient Orientation Name Attention Span Ability Unable to Focus,Unable to Sustain Attention Cognitive Comments Cognitive Assessment Comments Pt able to respond to her name today. States no when trying to assist pt for mobility needs. Pt also grabbing with her hands at therapists and with great difficulty to redirect her. posterior precautions. Sit to stand MAX AX 2-3 and Total Assist for transfer with FWW to the recliner. Pt will benefit from marium lift for transfers. M9 OT- IP Assessment and Plan Start: 07/18/24 13:02 Freq: Status: Active Protocol: Document 07/20/24 12:02 [facility] (Rec: 07/20/24 13:15 [facility] Desktop) OT Summary Assessment and Plan Potential Rehabilitation Potential Poor Analytic Complexity at Evaluation High Summary OT Impairments Pain,Range of Motion,Strength, Balance,Functional Cognition, Functional Mobility,Self- Feeding,Grooming,Dressing, Toileting,Bathing,Toilet Transfers,Shower Transfers, Activity Tolerance Progress Towards Goals Slow Progress due to Pain,Slow Progress due to Medical Issues,Slow Progress due to Activity Tolerance,Slow Progress due to Cognition Assessment Summary Pt more alert today but not able to participate with any bed mobility and ADL needs. Pt not able to wash her face or hand when wash cloth given. Pt calling out when trying to help reposition her with pillow due to posterior precautions. Pt not able to follow commands and tends to grasp at therapist hands when trying to assist her with her gown. At this time pt better off to have parts counterman care instead of SNF . TO check on pt one last time to see if there if any possibility for pt to be a candidate for SNF. If no change of status or potential for any progress, discharge from OT services. Frequency of Treatment Other frequency 3-5x/week Treatment Plan OT Treatment Plan ADL Training,Functional Cognition Training,Functional Mobility,Patient/Family Education,Discharge Planning Other Treatment Recommendations and Next Pt to be able to do oral care Treatment Focus need while sitting up with ALLI. Discharge Recommendations OT Discharge Recommendations LTAC Transportation Needs at Discharge Stretcher/Ambulance
--- NOTE | 2024-07-20 14:03 | CM.DPNOTE ---
DCP Continued: Reviewed EMR and team rounds for pt?s medical status. Per hospitalist, pt being monitored if she can participate more in PT/OT evaluations (unsure if this is just confusion/lethargy from anesthesia); they will attempt once more on 07/21 to determine final recommendations. Per [facility] Admissions, pt can be accepted for SNF Rehab if a 2 person assist but will have to be at least participating. PASRR initiated, will need MD signature for hospital exemption. DCP spoke with pt , states he completed [facility] LTC application and it was moved from room. DCP found application in pt red chart, still has some missing signatures. DCP left a voice message for that the remaining parts of application are in patient room. [facility] Intake and Referral form will need to be sent when LTC application completed with signatures. DCP following this until end of day on 07/20. Plan A: PT/OT will attempt once more on 07/21 if pt appropriate for SNF Rehab before returning home. [facility] able to accept when cleared at a 2person-assist and pt participating. Plan B: Home with Hospice or home health services. supervisor intermediates application for in-home care in process. CM Team will continue to follow for coordination of discharge plans. MARÍA RichardSW
--- NOTE | 2024-07-20 14:38 | DIET.CONS ---
Dietary Consultation Note Admission Date: 07/15/2024 10:24 Assessment: 84 y F admitted after GLF. Dietitian screened for LOS. PMH of dementia. Spoke to RN, pt still not eating. Pt will agree to drink from straw, RN will assist, but then pt will not take any sips. Reports pt has been confused, EMR reviewed. No significant PO intakes for 5 days. No weight loss per EMR within last year. Pt being monitored to see if she can participate more with PT/OT. Potential GOC conversation if unable. Ht: 167.64 cm Wt: 64.5 kg BMI: 23.6 UBW: 63.503 kg on 05/06/24, 56.245 kg on 05/25/23 Last BM: () MNA: Дмитрий Score: 12 Diet: 07/17/24 Dinner General (Regular) Diet Diet Modifications: Nutrition Percent Meal Consumed 0% 07/19/24 18:00 Percent Meal Consumed 0% 07/19/24 18:00 Percent Meal Consumed 0% 07/18/24 18:00 Labs: RBC 3.75 X10^6/uL (4.0-5.2) L 07/18/24 04:50 Hgb 11.7 g/dL (12.0-16.0) L 07/18/24 04:50 Hct 35.0 % (36-46) L 07/18/24 04:50 Creatinine 0.62 mg/dL (0.52-1.04) 07/18/24 04:50 Nutrition Diagnosis: Inadequate oral intakes r/t cognitive impairment aeb no significant PO intake for 5 days Interventions: -ONS+ with meals as tolerated EER: [id number] kcals (25-30 kcals/kg) 65 g protein (1g/kg per age) Monitoring/Evaluations: GOC, PO intakes Electronically Signed by: Sara Goins 07/20/24 14:38 Clinical Dietitian [address] [address]
--- NOTE | 2024-07-20 18:38 | P.PN_ITS ---
Subjective Subjective Interval history: 84-year-old female with Alzheimer's dementia, GERD, osteopenia, hyperlipidemia who is now postoperative day 4 from a left hip cemented unipolar secondary to an acute fracture Her hospital course has been complicated by agitation related to attempts at mobilization and physical therapy. She denies significant pain to nursing and has refused Tylenol and ibuprofen. She tells me she is painful when she is standing on the hip, but nursing reports that she has not significantly uncomfortable with transferring. They do note she appears anxious when she attempts to bear weight. Patient does state she is too much food for dinner. She does have some word salad otherwise. Exam Vital Signs (past 8 hours): Fraction of Inspired Oxygen 28 SaO2/FiO2 Ratio 353 Oxygen Delivery Method Room Air Oxygen Flow Rate 0 Narrative Exam Narrative: GEN: Elderly female, sitting up in a chair, pleasant and cooperative HEENT:NC, Face symmetric CHEST: Respiratory excursions symmetric, CTAB CV: RRR, no M/R/G ABD: Soft, NT/ND, BT present in all 4 quadrants, no organomegaly or masses EXTR: warm, well perfused, no C/C/E SKIN: warm and dry, no rash NEURO: Alert, nonfocal Objective Labs 07/18/24 04:50 07/18/24 04:50 [facility] Medical History 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 Elevated blood pressure reading without diagnosis of hypertension Urinary incontinence Menopausal syndrome Osteopenia GERD without esophagitis Mixed hyperlipidemia Social History details: (Christopher), 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 Left femoral neck fracture due to ground level fall, likely pathologic due to underlying osteoporosis. Now POD #4 from left hip cemented unipolar. PT has recommended SNF for rehab. 2. Dementia, moderately advanced. Eating very little overall. She was able to participate in physical therapy today with her 's encouragement. 3. Elevated blood pressure, Blood pressures are moderately elevated. However, given her general medication refusal, I will not make any efforts to treat unless her blood pressure becomes significantly elevated. 4. GERD On omeprazole on an outpatient basis. 5. UTI, Chaudhry-sensitive E coli Completed 3 days of IV Rocephin. Code status DNR Prophylaxis Aspirin b.i.d. recommended but she has refused it for the last 4 doses [facility]position [facility] has been recommended Time-Based Coding :: [TOTAL MINUTES] spent with patient and on the chart (including review of chart, obtaining history, exam, reviewing outside data, placing orders, documenting exam and treatment plan, and counseling patient) on [DATE]. Quality VTE Deep Vein Thrombosis/Pulmonary Embolism Present on Admission: No
[2024-07-20] MEDS: SODIUM CHLORIDE 0.9% 1,000 ML 75 ML IV (19:02)
--- NOTE | 2024-07-20 19:32 | PC.NURSE ---
Addendum entered by Seth Earl R.N. 07/21/24 04:20: Pt attempted to remove IV and Pierce, RN assessed pain using FLACC scale and administered IV pain medication. Pt reassessed and asleep. Addendum entered by Seth Earl R.N. 07/21/24 02:04: mitts were removed at 2230, Pt given IV pain medication per EMAR, Pt sleeping well. Addendum entered by Seth Earl R.N. 07/20/24 21:18: Pt refused physical assessment, very agitated. Addendum entered by Seth Earl R.N. 07/20/24 19:55: CLIENT RELATIONSHIP EXECUTIVE just informed RN that Patient is becoming increasingly agitated and refused VS and was able to remove her one of her mitts and hit CLIENT RELATIONSHIP EXECUTIVE with said mitt. Pt then attempted to hit CLIENT RELATIONSHIP EXECUTIVE. plasma center nurse aware. 1:1 initiated Addendum entered by Seth Earl R.N. 07/20/24 19:40: charge account authorizer aware.. Original Note: shift production supervisor start of shift Patient was very agitated and trying remove pierce and IV lines. staff was able to prevent removal of pierce and iv line. RN applied mitts for Patient safety.
[2024-07-21] MEDS: HYDROMORPHONE 0.5 MG INJ IV ×2 (04:09→19:35)
[2024-07-21] MEDS: SODIUM CHLORIDE 0.9% 1,000 ML 75 ML IV (07:34)
[2024-07-21 09:00] VITALS: BP 156/79; PULSE 86; RESP 17; TEMP 36.9; O2SAT 94
--- NOTE | 2024-07-21 10:20 | PT.IPTN ---
Current Diagnoses Dementia in other diseases classified elsewhere, unspecified severity, without behavioral disturbance, psychotic disturbance, mood disturbance, and anxiety (07/15/24) Alzheimer's disease, unspecified (07/15/24) Other osteoporosis with current pathological fracture, left femur, initial encounter for fracture (07/15/24) Elevated blood-pressure reading, without diagnosis of hypertension (07/15/24) Fracture of unspecified part of neck of left femur, initial encounter for closed fracture (07/15/24) Unspecified fall, initial encounter (07/15/24) Surgery Performed Operation Date: 07/17/24 16:15 Actual Procedures p LEFT HIP UNIPOLAR, PARTIAL HIP REPLACEMENT CEMENTED S&N(Left) - Elise Earl MD Physical Therapy Treatment Note M2 PT-IP Current Condition Start: 07/18/24 12:28 Freq: NEEDED Status: Active Protocol: Document 07/18/24 11:50 AB (Rec: 07/18/24 12:58 AB [id number]) Physical Therapy Current Condition Current Condition Evaluation Date 07/18/24 Treatment Diagnosis s/p L hip hemiarthroplasty posterior; difficulty in walking Onset Date 07/15/24 M3 PT-IP Subjective Start: 07/18/24 12:28 Freq: NEEDED Status: Active Protocol: Document 07/21/24 10:20 AB (Rec: 07/21/24 11:10 AB Desktop) Subjective Physical Therapy Visit Type Type Treatment Note Visit Start Time 10:20 Visit Stop Time 10:50 Number of AMMONIA REFRIGERATION WORKER Visits 0 Physical Therapy Visit Comments Patient Comments able to respond better to questions and instructions but still with confusion and inconsistencies Therapy Pain Assessment Pain When Pain Assessed During Mobility Pain Present Pain Present Pain Reported Location Left Hip Scale Used pain scale not stated Pain Management Techniques Distraction,Modification of Treatment,Re-positioning, Timing of Activity with Medications M4 PT-IP Mobility and Gait Start: 07/18/24 12:28 Freq: NEEDED Status: Active Protocol: Document 07/21/24 10:20 AB (Rec: 07/21/24 11:10 AB Desktop) PT-Bed Mobility Assessment Supine to Sit Supine to Sit Maximum Assistance,2 Person Assistance,Head of Bed Elevated,Bedrails PT-Transfer Assessment Sit to and From Stand Sit to and from Stand Maximum Assistance,2 Person Assistance,Use of Upper Extremities Equipment Transfer Assistive Device Gait Belt,Front Wheeled Walker Orthotic/Prosthetic Devices or Brace: No Transfers Transfer Destination Chair Transfer Technique Stand Pivot Transfer Ability Level of Assist Maximum Assistance,Total Assistance,Use of Upper Extremities Comments Mobility Comments pt in bed. spouse in room. pt able to interact and respond to questions/instructions better today. pt with less agitation and PT was able to james gown on pt without pt pulling gown/IV line. spouse also helps to motivate pt. pt completed supine to sit max A x 2 and max cues. total A for scooting to EOB. pt able to sit on EOB CGA holding on to EOB and foot board to support. c/o initial dizziness. BP: 138/89 AR: 99 O2 sat 100%. completed sit to stand max A x 2 and max cues. increase posterior leaning and pt tends to push posteriorly. assisted pt to sit back on EOB total A x 2. attempted to stand again max A x 2-3 and max cues and stand pivot transfer to chair max A x 3 to total A x 3 using fWW. positioned pt on the chair total A x 2. call light and table next to pt. Left pt with NAC. M5 PT-IP Objective Assessments Start: 07/18/24 12:28 Freq: NEEDED Status: Active Protocol: Document 07/18/24 11:50 AB (Rec: 07/18/24 12:58 AB [id number]) Orientation Orientation/Cognition Level of Alertness Confusional State Safety Awareness Decreased Safety Awareness Memory Description Short Term Impaired,Restaurant District Manager Impaired Strength Comments Strength Comments NT: pt unable to follow directions Muscle Tone Muscle Tone WNL Yes M6 PT-IP Treatment Start: 07/18/24 12:28 Freq: NEEDED Status: Active Protocol: Document 07/21/24 10:20 AB (Rec: 07/21/24 11:10 AB Desktop) Physical Therapy Treatment Education Education Provided Safety M7 PT-IP Assessment and Plan Start: 07/18/24 12:28 Freq: NEEDED Status: Active Protocol: Document 07/21/24 10:20 AB (Rec: 07/21/24 11:10 AB Desktop) PT Summary Assessment and Plan Potential Rehabilitation Potential Fair Summary Impairments Pain,ROM,Strength,Balance, Coordination,Sensation,Tone, Cognition,Bed Mobility, Transfers,Gait,Activity Tolerance Progress Towards Goals Slow Progress due to Pain,Slow Progress due to Activity Tolerance,Slow Progress - Other Assessment Summary Pt able to participate with PT today. pt requiring max A x 3 to total A x 3 for stand pivot transfer using a FWW. pt with dx dementia contributing to current level of assistance affecting direction following and safety awareness. pt will require SNF rehab to improve strength and mobility. Goals Bed Mobility Goal Moderate Assistance Transfer Goal Moderate Assistance,Front Wheeled Walker Gait Goal Moderate Assistance,Front Wheel Walker Gait Distance 25 Other Goals improve bed mobility, transfers, ambulation using FWW ~ 100 ft SBA Days to Meet Goals 10 Frequency of Treatment Frequency Of Treatment Once a Day Treatment Plan Physical Therapy Treatment Plan Bed Mobility Training,Transfer Training,Gait Training, Therapeutic Exercise,Balance Retraining,Post Op Education, Discharge Planning,Hot or Cold Pack,Neuromuscular Re-ed, Coordination Retraining Precautions Posterior Hip Precautions No Hip Flexion > 90 degrees,No Hip Internal Rotation,No Hip Adduction Weight Bearing Status Weight Bearing Status Weight Bear as Tolerated Allowed Weight Bearing Amount (enter % LLE WBAT or #) (%) Recommendations To Nursing Amount of Assist Needed Mechanical Lift Discharge Recommendations PT Discharge Recommendations SNF Rehab - PT assist 3
--- NOTE | 2024-07-21 16:51 | CM.DPNOTE ---
DCP note SAP SECURITY ARCHITECT reviewed EMR per August at , pt needs to have pain managed with PO meds/eating more. Per PT, pt did better today. continues to be marium assist. was able to participate better/follow directions better. less agitated. spouse reorients her. Met with spouse briefly in room. signed LTC [facility] docs. preference remains SNF at if possible rather than [facility]. per spouse, pt ate some more today than in previous days. SAP SECURITY ARCHITECT faxed in [facility] Medicaid angel/expedited form. originals behind FS. PASRR previously started, needs signature. P: 1) [facility] if able to accept 2) home with hospice/CC (referral needed). will continue to follow closely for DCP coordination WAYNE Hahn
--- NOTE | 2024-07-21 19:35 | PC.NURSE ---
Addendum entered by Seth Earl R.N. 07/21/24 19:43: belt weaver was able to get ROLL CARRIER to sit 1:1 with patient until patient calms down. RN will continue to monitor. Original Note: mine shifter start of shift, patient is already attempting to remove pierce and IV, PUBLIC HEALTH REPRESENTATIVE is sitting bedside with patient to help prevent patient harm of removing pierce. RN attempted to do Physical assessment, patient refused telling RN to go away, dont touch me, i dont want meds, am not hungry. belt weaver aware, Patient may need 1:1 supervision.
[2024-07-21 20:00] VITALS: BP 130/65; PULSE 88; RESP 19; TEMP 36.4; O2SAT 94
[2024-07-21] MEDS: OLANZapine 10 MG VIAL IM (20:09)
--- NOTE | 2024-07-21 20:23 | PC.NURSE ---
0 , asked to be 1:1 with the patient. Patient confused and in bed. IV and pierce intact , bed lowered ,rails up and alarm on.
[2024-07-22] MEDS: HYDROMORPHONE 0.5 MG INJ IV (05:50)
[2024-07-22] MEDS: QUETIAPINE 25 MG TABLET 12.5 MG PO ×2 (08:22→20:11)
[2024-07-22] MEDS: ASPIRIN EC 81 MG TABLET PO ×2 (08:22→20:11)
[2024-07-22] MEDS: ACETAMINOPHEN 325 MG TABLET 650 MG PO ×2 (08:23→18:38)
[2024-07-22] MEDS: IBUPROFEN 400 MG TABLET PO ×2 (08:23→18:37)
[2024-07-22] MEDS: SODIUM CHLORIDE 0.9% 1,000 ML 75 ML IV (08:36)
[2024-07-22 09:11] VITALS: BP 118/74; PULSE 88; RESP 22; TEMP 37.2; O2SAT 99
--- NOTE | 2024-07-22 10:45 | PT-IP ANOTE ---
PT reviews chart and checks in on pt who is snoring and sleeping soundly. She does awaken to voice and smile. She con't to be very lethargic and fall back asleep. Con't PT efforts a later date.
--- NOTE | 2024-07-22 12:40 | CM.DPNOTE ---
DCP Cont Reviewed chart. Patient discussed in multidisciplinary rounds. Placed call to August at [facility] who explained that the auth has been secured from [facility] however, [facility] cannot accept patient until behaviors are better managed and patient is needing a 2person or less assist with therapies. Plan remains discharge to SNF, [facility] as long as agitation improves and patient is progressing with therapies. Otherwise, may consider home w/HH vs Hospice. CM team following closely. COLLEEN
--- NOTE | 2024-07-22 17:51 | P.PN_ITS ---
Subjective Subjective Interval history: 84-year-old female with Alzheimer's dementia, GERD, osteopenia, hyperlipidemia who is now postoperative day 4 from a left hip cemented unipolar secondary to an acute fracture Her hospital course has been complicated by agitation related to attempts at mobilization and physical therapy. She denies significant pain to nursing and has refused Tylenol and ibuprofen. Nursing reports she appears anxious when she attempts to bear weight. Patient denies any complaints for me. She does have a cheeseburger, chips, and an ensure at bedside that have not been eaten from lunch. She specifically denies any pain today. She is very pleasant and cooperative. Exam Vital Signs (past 8 hours): Fraction of Inspired Oxygen 28 SaO2/FiO2 Ratio 353 Oxygen Delivery Method Room Air Oxygen Flow Rate 0 Narrative Exam Narrative: GEN: Elderly female, initially sleeping in bed, then awake, pleasant and cooperative HEENT:NC, Face symmetric CHEST: Respiratory excursions symmetric, CTAB CV: RRR, no M/R/G ABD: Soft, NT/ND, BT present in all 4 quadrants, no organomegaly or masses EXTR: warm, well perfused, no C/C/E SKIN: warm and dry, no rash NEURO: Alert, nonfocal Objective Labs 07/18/24 04:50 07/18/24 04:50 [facility] Medical History 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 Elevated blood pressure reading without diagnosis of hypertension Urinary incontinence Menopausal syndrome Osteopenia GERD without esophagitis Mixed hyperlipidemia Social History details: (Christopher), 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 Left femoral neck fracture due to ground level fall, likely pathologic due to underlying osteoporosis. Now POD #5 from left hip cemented unipolar. PT has recommended SNF for rehab. At this point, [facility] monitoring her progress with therapies and has not yet accepted her. 2. Dementia, moderately advanced. Eating very little overall, but she did have 50% of 1 meal today. She was able to participate in physical therapy yesterday, but was drowsy today and did not participate. 3. Elevated blood pressure, Blood pressures normotensive today. 4. GERD On omeprazole on an outpatient basis. 5. UTI, Chaudhry-sensitive E coli Completed 3/3 days of IV Rocephin. Code status DNR Prophylaxis Aspirin b.i.d. ordered and she is taking it intermittently. She did take a dose this morning but declined the previous 5 doses. Disposition [facility] facility for rehab has been recommended Time-Based Coding :: [TOTAL MINUTES] spent with patient and on the chart (including review of chart, obtaining history, exam, reviewing outside data, placing orders, documenting exam and treatment plan, and counseling patient) on [DATE]. Quality VTE Deep Vein Thrombosis/Pulmonary Embolism Present on Admission: No
[2024-07-22] MEDS: OXYCODONE IR 5 MG TABLET PO (19:05)
[2024-07-22 19:39] VITALS: BP 128/84; PULSE 86; RESP 19; TEMP 37.1; O2SAT 94
[2024-07-22] MEDS: ASCORBIC ACID 500 MG TABLET 1000 MG PO (20:11)
[2024-07-22] MEDS: DOCUSATE 100 MG CAPSULE PO (20:11)
[2024-07-22] MEDS: SODIUM CHLORIDE 0.9% FLUSH 10 ML IV (20:26)
--- NOTE | 2024-07-23 00:08 | PC.NURSE ---
NOC: ~ 2100, pt became agitated, pulling at IV and Madison catheter tubing, saying she wanted to get out of bed. Able to redirect but patient not able to withold from grabbing at tubing. Applied mitts to prevent pulling tubing out but patient became more agitated and removed them. PCT [place] standing by 1:1 to redirect patient. Patient eventually fell asleep. Pt currently sleeping comfortably, plan of care continues.
[2024-07-23] MEDS: ACETAMINOPHEN 325 MG TABLET 650 MG PO ×2 (05:53→18:00)
[2024-07-23] MEDS: IBUPROFEN 400 MG TABLET PO ×3 (05:53→18:00)
[2024-07-23] MEDS: SODIUM CHLORIDE 0.9% 1,000 ML 75 ML IV ×2 (05:53→18:05)
[2024-07-23 08:00] VITALS: BP 145/90; PULSE 79; RESP 21; TEMP 36.6; O2SAT 95
[2024-07-23] MEDS: OXYCODONE IR 5 MG TABLET PO ×2 (08:57→19:20)
[2024-07-23] MEDS: ASPIRIN EC 81 MG TABLET PO ×2 (08:57→20:14)
[2024-07-23] MEDS: QUETIAPINE 25 MG TABLET 12.5 MG PO (08:57)
[2024-07-23] MEDS: polyethylene glycoL 3350 17 GM POWD.PACK PO (08:57)
--- NOTE | 2024-07-23 10:48 | PT.IPTN ---
Current Diagnoses Dementia in other diseases classified elsewhere, unspecified severity, without behavioral disturbance, psychotic disturbance, mood disturbance, and anxiety (07/15/24) Alzheimer's disease, unspecified (07/15/24) Other osteoporosis with current pathological fracture, left femur, initial encounter for fracture (07/15/24) Elevated blood-pressure reading, without diagnosis of hypertension (07/15/24) Fracture of unspecified part of neck of left femur, initial encounter for closed fracture (07/15/24) Unspecified fall, initial encounter (07/15/24) Surgery Performed Operation Date: 07/17/24 16:15 Actual Procedures p LEFT HIP UNIPOLAR, PARTIAL HIP REPLACEMENT CEMENTED S&N(Left) - Elise Earl MD Physical Therapy Treatment Note M2 PT-IP Current Condition Start: 07/18/24 12:28 Freq: NEEDED Status: Active Protocol: Document 07/18/24 11:50 AB (Rec: 07/18/24 12:58 AB [id number]) Physical Therapy Current Condition Current Condition Evaluation Date 07/18/24 Treatment Diagnosis s/p L hip hemiarthroplasty posterior; difficulty in walking Onset Date 07/15/24 M3 PT-IP Subjective Start: 07/18/24 12:28 Freq: NEEDED Status: Active Protocol: Document 07/23/24 10:15 MB (Rec: 07/23/24 10:48 MB Desktop) Subjective Physical Therapy Visit Type Type Treatment Note Visit Start Time 10:15 Visit Stop Time 10:38 Number of FRONT MAN Visits 0 Physical Therapy Visit Comments Patient Comments Pt with confusion, makes a few comments not related to task Therapy Pain Assessment Pain When Pain Assessed During Mobility Pain Present Pain Present Pain Reported Location Left Hip Scale Used Grimacing, does not rate M4 PT-IP Mobility and Gait Start: 07/18/24 12:28 Freq: NEEDED Status: Active Protocol: Document 07/23/24 10:15 MB (Rec: 07/23/24 10:48 MB Desktop) PT-Bed Mobility Assessment Supine to Sit Supine to Sit Maximum Assistance,1 Person Assistance,Head of Bed Elevated,Bedrails Scooting Scooting to Edge of Bed Dependent PT-Transfer Assessment Sit to and From Stand Sit to and from Stand Maximum Assistance,2 Person Assistance,Use of Upper Extremities Equipment Transfer Assistive Device Gait Belt,Front Wheeled Walker Orthotic/Prosthetic Devices or Brace: No Transfers Transfer Destination Chair Transfer Technique Squat Pivot Transfer Ability Level of Assist Total Assistance Comments Mobility Comments Unable to follow commands, tends to stay flexed over past 70 deg precaution, cannot fully stand with walker and requires total assistance of one person for squat pivot transfer to chair to the left and total assistance of two people to position and scoot in chair, using pad PT-Balance Assessment Sitting Balance and Reactions Static Sitting Balance Ability Fair Dynamic Sitting Balance Ability Poor M5 PT-IP Objective Assessments Start: 07/18/24 12:28 Freq: NEEDED Status: Active Protocol: Document 07/18/24 11:50 AB (Rec: 07/18/24 12:58 AB [id number]) Orientation Orientation/Cognition Level of Alertness Confusional State Safety Awareness Decreased Safety Awareness Memory Description Short Term Impaired,Correction Impaired Strength Comments Strength Comments NT: pt unable to follow directions Muscle Tone Muscle Tone WNL Yes M6 PT-IP Treatment Start: 07/18/24 12:28 Freq: NEEDED Status: Active Protocol: Document 07/23/24 10:15 MB (Rec: 07/23/24 10:48 MB Desktop) Physical Therapy Treatment Education Education Provided Safety M7 PT-IP Assessment and Plan Start: 07/18/24 12:28 Freq: NEEDED Status: Active Protocol: Document 07/23/24 10:15 MB (Rec: 07/23/24 10:48 MB Desktop) PT Summary Assessment and Plan Potential Rehabilitation Potential Poor Status of Condition at Evaluation Evolving Summary Impairments Pain,ROM,Strength,Balance, Coordination,Tone,Cognition, Bed Mobility,Transfers,Gait, Activity Tolerance Progress Towards Goals Slow Progress due to Activity Tolerance,Slow Progress - Other Assessment Summary Pt con't with confusion. Pt found resting in bed with left leg extended in IR position and with increased PF tone ankle and adductor/IR tone. PT leaves message for Dr. Earl about possible abduction pillow for lying in bed/ sitting up in chair with legs extended. PT also lets nsg know. Left buttock skin tear noted and nsg arrives to dress . Pt requires max A for bed mobility and total assist for squat pivot transfer to the left to chair. She remains in forward, flexed posture at hips when sitting, greater than 70 deg, and is at high risk for dislocation given confusion and posturing. Pt has no body awareness as far as falling forward and is unable to follow skilled PT commands this date. She is not agitated with therapy. Goals Bed Mobility Goal Moderate Assistance Transfer Goal Moderate Assistance,Front Wheeled Walker Gait Goal Moderate Assistance,Front Wheel Walker Gait Distance 25 Days to Meet Goals 5 Frequency of Treatment Frequency Of Treatment Once a Day Treatment Plan Physical Therapy Treatment Plan Bed Mobility Training,Transfer Training,Gait Training, Therapeutic Exercise,Balance Retraining,Post Op Education, Discharge Planning,Hot or Cold Pack,Neuromuscular Re-ed, Coordination Retraining Precautions Other Precautions Per Dr. Earl order on 07/17/24 , hip not bent more than 70 deg, no crossing of legs or internally rotating operated hip/leg Weight Bearing Status Weight Bearing Status Weight Bear as Tolerated Allowed Weight Bearing Amount (enter % LLE WBAT or #) (%) Recommendations To Nursing Amount of Assist Needed Mechanical Lift Discharge Recommendations PT Discharge Recommendations SNF Rehab - PT assist x2
--- NOTE | 2024-07-23 11:00 | OT.IP.TRT ---
Current Diagnoses Dementia in other diseases classified elsewhere, unspecified severity, without behavioral disturbance, psychotic disturbance, mood disturbance, and anxiety (07/15/24) Alzheimer's disease, unspecified (07/15/24) Other osteoporosis with current pathological fracture, left femur, initial encounter for fracture (07/15/24) Elevated blood-pressure reading, without diagnosis of hypertension (07/15/24) Fracture of unspecified part of neck of left femur, initial encounter for closed fracture (07/15/24) Unspecified fall, initial encounter (07/15/24) Surgery Performed Operation Date: 07/17/24 16:15 Actual Procedures p LEFT HIP UNIPOLAR, PARTIAL HIP REPLACEMENT CEMENTED S&N(Left) - Elise Earl MD Occupational Therapy Treatment Note M2 OT-IP Current Condition Start: 07/18/24 13:02 Freq: Status: Active Protocol: Document 07/18/24 12:00 CCC (Rec: 07/18/24 13:25 CCC Desktop) Occupational Therapy Current Condition Current Condition Evaluation Date 07/18/24 Treatment Diagnosis S/P Left hip Unipolar Diagnosis Onset Date 07/15/24 Post Operative Precautions Posterior Hip Precautions No Hip Flexion > 90 degrees,No Hip Internal Rotation,No Hip Adduction M3 OT- IP Subjective and Pain Start: 07/18/24 13:02 Freq: Status: Active Protocol: Document 07/23/24 12:00 CGR (Rec: 07/23/24 12:11 CGR Desktop) OT- Subjective Occupational Therapy Visit Type Type Treatment Note Visit Start Time 10:12 Visit Stop Time 10:39 Notes Partial co-treat with P.T. Pt's present throughout session and states he thinks he hurt his back helping his up when she fell. OT Pain Assessment Pain When Pain Assessed At Rest Pain Present Pain Present Denied Pain M4 OT- IP ADL's Start: 07/18/24 13:02 Freq: Status: Active Protocol: Document 07/23/24 12:00 CGR (Rec: 07/23/24 12:11 CGR Desktop) OT [id number] Comments OT Self-Feeding Comments not meal time, states that she is not really eating. OT ADL-Grooming General Evaluation Grooming Ability Standby Assistance Areas Needing Assistance Face Washing Comments OT Grooming Comments with set up pt washed her face seated in chair. OT ADL-Oral Care General Eval Oral Care Ability Minimal Assistance Areas of Assistance Brushing Teeth Comments Oral Care Comments pt brushed teeth with some assist and perseveration sitting up in chair OT ADL-Dressing General Eval Lower Body Dressing Ability Total Assistance Areas Needing Assistance Socks OT ADL-Toileting Comments OT Toileting Comments not performed OT ADL-Bathing Comments OT Bathing Comments not performed M5 OT- IP IADL's Start: 07/18/24 13:02 Freq: Status: Active Protocol: Document 07/18/24 12:00 CCC (Rec: 07/18/24 13:25 CCC Desktop) OT-Instrumental Activities of Daily Living Home Safety Awareness Awareness of Need for Assistance at Home Decreased Awareness Ability to Problem Solve Emergency Unable to Problem Solve Situations Home Safety Comments Pt has dementia and relies on her for all needs. Medication Management Medication Management Caregiver Administers Money Management Money Management Caregiver Provides Assistance Meal Preparation Meal Preparation Caregiver Provides Assist Cook Apprentice Cook Apprentice Caregiver Provides Assist M6 OT- IP Functional Cognition Start: 07/18/24 13:02 Freq: Status: Active Protocol: Document 07/23/24 12:00 CGR (Rec: 07/23/24 12:11 CGR Desktop) Cognitive Factors Limiting Selfcare Function Cognitive Ability Level of Alertness Alert,Confusional State Patient Orientation Name Attention Span Ability Capable of Focused Attention, Capable of Sustained Attention Ability to Follow Commands Able to Follow One Step Commands with Increased Time, Able to Follow One Step Commands with Repetition Cognitive Comments Cognitive Assessment Comments Pt was able to inconsistently follow some commands OT- Vision and Hearing OT- Hearing Assessment OT- Hearing Assessment Hearing Impaired,Use of Hearing Aids OT- Vision Assessment Vision Assessment Comments Pt's states her hearing aids at home. M7 OT- IP Mobility and Balance Start: 07/18/24 13:02 Freq: Status: Active Protocol: Document 07/23/24 12:00 CGR (Rec: 07/23/24 12:11 CGR Desktop) OT- Bed Mobility Assessment Supine to Sit Supine to Sit Assist Maximum Assistance,1 Person Assistance,Head of Bed Elevated,Bedrails Scooting Scooting to Edge of Bed Maximum Assistance,1 Person Assistance,Head of Bed Elevated,Bedrails OT-Transfer Assessment Sit to and From Stand Sit to and from Stand Maximum Assistance,Total Assistance,1 Person Assistance Transfers Transfer Ability Total Assistance,1 Person Assistance Technique Transfer Destination Bed,Chair Transfer Technique Stand Pivot Devices Transfer Assistive Devices Gait Belt,Front Wheeled Walker Comments Mobility Comments Pt initially stood EOB with max x 1. Pt is not able to follow commands for posterior hip precautions and sits with increased fx forward beyond 90 despite our best efforts to maintain 70 degrees or less per precautions. Pt was unable to take steps but was participatory in todays efforts and was assistive with total assist stand pivot transfer from bed to chair and a second stand from chair for straightening up the chair. PT assisted with a max x 2 for attempting steps but pt was not able to perform, otherwise pt was max to total of 1 and agreeable to all activity. OT- Gait Assessment Comments Gait Ability Comments did not occur OT- Balance Assessment Sitting Balance and Reactions Static Sitting Balance Ability Fair Dynamic Sitting Balance Ability Fair M8 OT- IP Objective Assessments Start: 07/18/24 13:02 Freq: Status: Active Protocol: Document 07/19/24 14:46 CCC (Rec: 07/19/24 14:58 CCC Desktop) OT-Muscle Tone Assessment Comments Muscle Tone Comments Pt resisting movements and guarding from allowing therapists to work with her. Noted right shoulder catching at times during gentle ROM. M9 OT- IP Assessment and Plan Start: 07/18/24 13:02 Freq: Status: Active Protocol: Document 07/23/24 12:00 CGR (Rec: 07/23/24 12:11 CGR Desktop) OT Summary Assessment and Plan Potential Rehabilitation Potential Poor Analytic Complexity at Evaluation High Summary OT Impairments Pain,Range of Motion,Strength, Balance,Functional Cognition, Functional Mobility,Self- Feeding,Grooming,Dressing, Toileting,Bathing,Toilet Transfers,Shower Transfers, Activity Tolerance Progress Towards Goals Slow Progress due to Pain,Slow Progress due to Medical Issues,Slow Progress due to Activity Tolerance,Slow Progress due to Cognition Assessment Summary Pt was sleeping when OT entered but was easily aroused . Pt was participatory with bed mobility and showed ability to move the LLE in bed . Pt still needed max a for sup to sit with HOB up but was able to follow some commands inconsistently. Pt transferred to chair with 1 person total assist but was participatory throughout session, although pleasantly confused. Pt would benefit from SNF upon discharge. Goals Self-Feeding Goal Standby Assistance Grooming Goal Standby Assistance Dressing Goal Standby Assistance Toileting Goal Moderate Assistance Bathing Goal Moderate Assistance Toilet Transfer Goal Moderate Assistance Shower Transfer Goal Moderate Assistance Days to Meet Goals 30 Frequency of Treatment Other frequency 5x/week Treatment Plan OT Treatment Plan ADL Training,Functional Cognition Training,Functional Mobility,Patient/Family Education,Discharge Planning Other Treatment Recommendations and Next Pt to be able to do oral care Treatment Focus need while sitting up with ALLI. Discharge Recommendations OT Discharge Recommendations SNF Rehab Transportation Needs at Discharge Wheelchair/Cabulance
--- NOTE | 2024-07-23 11:39 | P.PN_ITS ---
Subjective Subjective Interval history: 84-year-old female with Alzheimer's dementia, GERD, osteopenia, hyperlipidemia who is now postoperative day 4 from a left hip cemented unipolar secondary to an acute fracture Her hospital course has been complicated by agitation related to attempts at mobilization and physical therapy. She denies significant pain to nursing and has refused Tylenol and ibuprofen. Nursing reports she appears anxious when she attempts to bear weight. Patient denies any complaints for me. She specifically denies any pain today. She is very pleasant and cooperative. Exam Vital Signs (past 8 hours): - 07/23/24 08:00 Temperature 98 F Pulse Rate 79 Respiratory Rate 21 Blood Pressure 145/90 H Pulse Oximetry 95 Fraction of Inspired Oxygen 28 SaO2/FiO2 Ratio 353 Oxygen Delivery Method Room Air Oxygen Flow Rate 0 Narrative Exam Narrative: GEN: Elderly female, initially sleeping in bed, then awake, pleasant and cooperative HEENT:NC, Face symmetric CHEST: Respiratory excursions symmetric, CTAB CV: RRR, no M/R/G ABD: Soft, NT/ND, BT present in all 4 quadrants, no organomegaly or masses EXTR: warm, well perfused, no C/C/E SKIN: warm and dry, no rash NEURO: Alert, nonfocal Objective Labs 07/18/24 04:50 07/18/24 04:50 [facility] Medical History 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 Elevated blood pressure reading without diagnosis of hypertension Urinary incontinence Menopausal syndrome Osteopenia GERD without esophagitis Mixed hyperlipidemia Social History details: (Christopher), two sons, 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 Left femoral neck fracture due to ground level fall, likely pathologic due to underlying osteoporosis. Now s/p left hip cemented unipolar. PT has recommended SNF for rehab. At this point, [facility] is monitoring her progress with therapies and has not yet accepted her. 2. Dementia, moderately advanced. Eating very little overall, but she did have 50% of 1 meal today. She was able to participate in physical therapy today. - on seroquel BID, will increase nightly seroquel to assist with sleep so currently 12.5 mg AM, 25 mg PM. 3. Elevated blood pressure, Blood pressures normotensive today. 4. GERD On omeprazole on an outpatient basis. 5. UTI, Chaudhry-sensitive E coli Completed 3/3 days of IV Rocephin. Code status DNR Prophylaxis Aspirin b.i.d. ordered and she is taking it intermittently. She did take a dose this morning but declined the previous 5 doses. Disposition shelter facility for rehab has been recommended Time-Based Coding :: [TOTAL MINUTES] spent with patient and on the chart (including review of chart, obtaining history, exam, reviewing outside data, placing orders, documenting exam and treatment plan, and counseling patient) on [DATE]. Quality VTE Deep Vein Thrombosis/Pulmonary Embolism Present on Admission: No
--- NOTE | 2024-07-23 14:00 | DIET.PN1 ---
Dietary Progress Note Assessment: f/u Spoke with nursing staff who report around 25% of PO intakes today. Staff assisting pt with eating and notes softer foods are better tolerated, had difficulty chewing eggs this morning. Ht: 167.64 cm Wt: 64.5 kg BMI: 23.6 UBW: 63.503 kg on 05/06/24, 56.245 kg on 05/25/23 Last BM: () MNA: Дмитрий Score: 16 Diet: 07/17/24 Dinner General (Regular) Diet Diet Modifications: Nutrition Percent Meal Consumed 25% 07/23/24 13:55 Percent Meal Consumed 50% 07/22/24 09:15 Labs: RBC 3.75 X10^6/uL (4.0-5.2) L 07/18/24 04:50 Hgb 11.7 g/dL (12.0-16.0) L 07/18/24 04:50 Hct 35.0 % (36-46) L 07/18/24 04:50 Creatinine 0.62 mg/dL (0.52-1.04) 07/18/24 04:50 Nutrition Diagnosis: Inadequate oral intakes r/t cognitive impairment and needing softer foods aeb <50% PO intakes in last 7 days and nursing staff reporting pt tolerating softer foods better Interventions: -softer foods, coordinated with unit host -continue ONS+ Monitoring/Evaluations: PO intakes Electronically Signed by: Sara Goins 07/23/24 14:[address] [id number]
--- NOTE | 2024-07-23 15:14 | CM.DPC ---
DCP Cont: Per overnight RN, pt was somewhat agitated and pulling on her lines and mitts attempted but pt got them off so had staff nearby but then pt calmed and slept the night. Was not official 1:1 but documented as such. Per PT/OT, pt improved today and mostly 1P max assist but at brief times 2PA (was no longer 3PA). SW sent updated notes to [facility] to review and they confirm pt will need to be managed overnight without mitts or 1:1. SW met bedside with pt and spouse and pt unable to participate in discussion due to dementia and spouse aware that pt might not be able to go to SNF under her insurance for rehab pending her progress but that today is a better day. Spouse aware that if SNF rehab not an option, then SW working on LTC Medicaid with likely Hospice if pt continues not to get much po intake and he is agreeable with this if needed as he confirms he cannot physically assist pt at home and does not have finances to pay for additional care. QI attempted to get ahold of Vignesh [facility] intake Dust Handler [phone] but he is out of the office today and back tomorrow Tu07/24/24. QI called [facility]onia [facility] Intake Dust Handler [phone] and she confirmed that pt's LTC [facility] application has not been uploaded in their system yet since it was faxed Tuesday/Tue. But resent [facility] Intake Referral Expedited form to Maik at email [email or web address] so that she can upload that form into their system. Since pt likely will need Hospice/Comfort Care in the near future then her application likely will be bumped up the list as well. Plan: SW to follow closely for pt's behaviors overnight to determine if [facility] can accept under her insurance while waiting for Medicaid [employer] application to be processed for placement at a facility (SNF vs Assisted Living) under her Medicaid with Hospice soon. WAYNE Prado
[2024-07-23 20:00] VITALS: BP 157/75; PULSE 91; RESP 17; TEMP 36.3; O2SAT 93
[2024-07-23] MEDS: DOCUSATE 100 MG CAPSULE PO (20:15)
[2024-07-23] MEDS: ASCORBIC ACID 500 MG TABLET 1000 MG PO (20:15)
[2024-07-23] MEDS: QUETIAPINE 25 MG TABLET PO (20:15)
[2024-07-24] MEDS: IBUPROFEN 400 MG TABLET PO ×5 (02:34→20:39)
--- NOTE | 2024-07-24 06:37 | PC.NURSE ---
At shift change, pt began to show interest in pulling at tubing but was easily redirectable. Accepted medications without hesitation. Pt was talkative and appropriately responsive, drinks PO fluids when offered/encouraged. Pt slept from 2200 on. Pt currently sleeping comfortably, call light within reach, plan of care continues.
[2024-07-24 08:00] VITALS: BP 189/84; PULSE 67; RESP 20; TEMP 37.2; O2SAT 94
--- NOTE | 2024-07-24 08:10 | DI.RAD.S_ITS ---
PROCEDURE: XR HIP W PEL IF DONE LT 2V INDICATIONS: postop hip TECHNIQUE: AP pelvis and lateral view of the hip acquired. [facility], 07/15/[facility]24, 8:47. FINDINGS: Bones: Patient is status post left hip arthroplasty, with hardware components in expected positions. The hip joint appears congruent. The visualized bony structures appear intact. Soft tissues: Overlying postoperative changes are noted. No suspicious soft tissue densities. IMPRESSION: Expected post-operative appearance of a hip arthroplasty. Dictated by: Jovan Spencer M.D. on 07/24/2024 at 8:45 Approved by: Jovan Spencer M.D. on 07/24/2024 at 8:45
[2024-07-24] MEDS: QUETIAPINE 25 MG TABLET 12.5 MG PO (08:19)
[2024-07-24] MEDS: ASPIRIN EC 81 MG TABLET PO ×2 (08:19→20:39)
[2024-07-24] MEDS: DOCUSATE 100 MG CAPSULE PO ×2 (08:19→20:39)
[2024-07-24] MEDS: ASCORBIC ACID 500 MG TABLET 1000 MG PO ×2 (08:19→20:39)
[2024-07-24] MEDS: FISH OIL 1,000 MG CAPSULE 1000 MG PO (08:19)
[2024-07-24] MEDS: VIT C/E/ZN/COPPR/LUTEIN/ZEAXAN CAPSULE 1 CAP PO (08:19)
--- NOTE | 2024-07-24 10:00 | PT.IPTN ---
Current Diagnoses Dementia in other diseases classified elsewhere, unspecified severity, without behavioral disturbance, psychotic disturbance, mood disturbance, and anxiety (07/15/24) Alzheimer's disease, unspecified (07/15/24) Other osteoporosis with current pathological fracture, left femur, initial encounter for fracture (07/15/24) Elevated blood-pressure reading, without diagnosis of hypertension (07/15/24) Fracture of unspecified part of neck of left femur, initial encounter for closed fracture (07/15/24) Unspecified fall, initial encounter (07/15/24) Surgery Performed Operation Date: 07/17/24 16:15 Actual Procedures p LEFT HIP UNIPOLAR, PARTIAL HIP REPLACEMENT CEMENTED S&N(Left) - Elise Earl MD Physical Therapy Treatment Note M2 PT-IP Current Condition Start: 07/18/24 12:28 Freq: NEEDED Status: Active Protocol: Document 07/18/24 11:50 AB (Rec: 07/18/24 12:58 AB [id number]) Physical Therapy Current Condition Current Condition Evaluation Date 07/18/24 Treatment Diagnosis s/p L hip hemiarthroplasty posterior; difficulty in walking Onset Date 07/15/24 M3 PT-IP Subjective Start: 07/18/24 12:28 Freq: NEEDED Status: Active Protocol: Document 07/24/24 10:00 AB (Rec: 07/24/24 11:45 AB [id number]) Subjective Physical Therapy Visit Type Type Treatment Note Visit Start Time 10:00 Visit Stop Time 10:27 Number of REFINERY OPERATOR ALKYLATION Visits 0 Physical Therapy Visit Comments Patient Comments agreeable to do PT Therapy Pain Assessment Pain When Pain Assessed During Mobility Location Left Hip Scale Used pain scale not stated Pain Behaviors Guarding,Holding Area Pain Management Techniques Distraction,Modification of Treatment,Re-positioning, Timing of Activity with Medications M4 PT-IP Mobility and Gait Start: 07/18/24 12:28 Freq: NEEDED Status: Active Protocol: Document 07/24/24 10:00 AB (Rec: 07/24/24 11:45 AB [id number]) PT-Bed Mobility Assessment Supine to Sit Supine to Sit Maximum Assistance,2 Person Assistance Scooting Scooting to Edge of Bed Maximum Assistance PT-Transfer Assessment Sit to and From Stand Sit to and from Stand Maximum Assistance,2 Person Assistance,Use of Upper Extremities Equipment Transfer Assistive Device Gait Belt,Front Wheeled Walker Orthotic/Prosthetic Devices or Brace: No Transfers Transfer Destination Chair Transfer Technique Squat Pivot Transfer Ability Level of Assist Maximum Assistance,2 Person Assistance,Use of Upper Extremities Comments Mobility Comments pt in bed and spouse in room. pt agreeable to do PT. able to follow directions better today. completed supine to sit max A and max cues. pt able to move LE to EOB with assist. pt sat on EOB CGA. completed sit to stand max A x 2 and max cues. max A x 2 for standing balance. pt attempted to take side steps to transfer but unable to complete. assisted pt back to EOB and rested. pt completed sit to stand again max A x 2 and max cues. increase retrolean and increase leaning against the bed for support. sat pt on EOB again. Assisted pt to the chair, squat pivot transfer max A x 2 with PT in front of pt to assist and OT behind pt. positioned pt on the chair. call light and table placed next to pt. Left pt with OT. M5 PT-IP Objective Assessments Start: 07/18/24 12:28 Freq: NEEDED Status: Active Protocol: Document 07/18/24 11:50 AB (Rec: 07/18/24 12:58 AB [id number]) Orientation Orientation/Cognition Level of Alertness Confusional State Safety Awareness Decreased Safety Awareness Memory Description Short Term Impaired,Head Bucker Impaired Strength Comments Strength Comments NT: pt unable to follow directions Muscle Tone Muscle Tone WNL Yes M6 PT-IP Treatment Start: 07/18/24 12:28 Freq: NEEDED Status: Active Protocol: Document 07/23/24 10:15 MB (Rec: 07/23/24 10:48 MB Desktop) Physical Therapy Treatment Education Education Provided Safety M7 PT-IP Assessment and Plan Start: 07/18/24 12:28 Freq: NEEDED Status: Active Protocol: Document 07/24/24 10:00 AB (Rec: 07/24/24 11:45 AB [id number]) PT Summary Assessment and Plan Summary Impairments Pain,ROM,Strength,Balance, Coordination,Sensation,Tone, Cognition,Bed Mobility, Transfers,Gait,Activity Tolerance Progress Towards Goals Slow Progress due to Medical Issues,Slow Progress due to Activity Tolerance,Slow Progress - Other Assessment Summary pt requiring max A x 2 for squat pivot transfer to chair. able to follow directions better today but continue to have confusion but can be redirected. pt will benefit from SNF rehab to improve overall strength and mobility. Goals Bed Mobility Goal Moderate Assistance Transfer Goal Moderate Assistance,Front Wheeled Walker Gait Goal Moderate Assistance,Front Wheel Walker Gait Distance 25 Days to Meet Goals 5 Frequency of Treatment Frequency Of Treatment Once a Day Treatment Plan Physical Therapy Treatment Plan Bed Mobility Training,Transfer Training,Gait Training, Therapeutic Exercise,Balance Retraining,Post Op Education, Discharge Planning,Hot or Cold Pack,Neuromuscular Re-ed, Coordination Retraining Precautions Posterior Hip Precautions No Hip Flexion > 90 degrees,No Hip Internal Rotation,No Hip Adduction Weight Bearing Status Weight Bearing Status Weight Bear as Tolerated Allowed Weight Bearing Amount (enter % LLE WBAT or #) (%) Recommendations To Nursing Amount of Assist Needed Mechanical Lift Discharge Recommendations PT Discharge Recommendations SNF Rehab - PT assist 2
--- NOTE | 2024-07-24 10:03 | OT.IP.TRT ---
Current Diagnoses Dementia in other diseases classified elsewhere, unspecified severity, without behavioral disturbance, psychotic disturbance, mood disturbance, and anxiety (07/15/24) Alzheimer's disease, unspecified (07/15/24) Other osteoporosis with current pathological fracture, left femur, initial encounter for fracture (07/15/24) Elevated blood-pressure reading, without diagnosis of hypertension (07/15/24) Fracture of unspecified part of neck of left femur, initial encounter for closed fracture (07/15/24) Unspecified fall, initial encounter (07/15/24) Surgery Performed Operation Date: 07/17/24 16:15 Actual Procedures p LEFT HIP UNIPOLAR, PARTIAL HIP REPLACEMENT CEMENTED S&N(Left) - Elise Earl MD Occupational Therapy Treatment Note M2 OT-IP Current Condition Start: 07/18/24 13:02 Freq: Status: Active Protocol: Document 07/18/24 12:00 [facility] (Rec: 07/18/24 13:25 [facility] Desktop) Occupational Therapy Current Condition Current Condition Evaluation Date 07/18/24 Treatment Diagnosis S/P Left hip Unipolar Diagnosis Onset Date 07/15/24 Post Operative Precautions Posterior Hip Precautions No Hip Flexion > 90 degrees,No Hip Internal Rotation,No Hip Adduction M3 OT- IP Subjective and Pain Start: 07/18/24 13:02 Freq: Status: Active Protocol: Document 07/24/24 11:12 [facility] (Rec: 07/24/24 11:36 [facility] Desktop) OT- Subjective Occupational Therapy Visit Type Type Treatment Note Visit Start Time 10:03 Visit Stop Time 10:33 Occupational Therapy Visit Comments Patient Comments Pt agreed to get up and also to do grooming and oral care needs. OT Pain Assessment Pain When Pain Assessed At Rest Pain Present Pain Present Pain Reported Location Left Hip Pain Behaviors Facial Grimacing M4 OT- IP ADL's Start: 07/18/24 13:02 Freq: Status: Active Protocol: Document 07/24/24 11:12 [facility] (Rec: 07/24/24 11:36 [facility] Desktop) OT ADL-Grooming General Evaluation Grooming Ability Minimal Assistance Comments OT Grooming Comments Pt able to wash her face after set-up and brush her hair. Pt needing assist for completeness to get the back of her hair. OT ADL-Oral Care General Eval Oral Care Ability Minimal Assistance Areas of Assistance Brushing Teeth Comments Oral Care Comments Pt initially trying to brush her hair with the toothbrush and needing redirection. Pt needing cues to sequence through the task. OT ADL-Dressing General Eval Upper Body Dressing Ability Maximum Assistance Lower Body Dressing Ability Total Assistance Areas Needing Assistance Socks Comments OT Dressing Comments Pt able to assist to put his arms into the gown. Total for her socks. OT ADL-Toileting General Evaluation Toileting Ability Total Assistance Comments OT Toileting Comments [place] OT ADL-Bathing Comments OT Bathing Comments Able to assist to wash off her back. M5 OT- IP IADL's Start: 07/18/24 13:02 Freq: Status: Active Protocol: Document 07/18/24 12:00 [facility] (Rec: 07/18/24 13:25 [facility] Desktop) OT-Instrumental Activities of Daily Living Home Safety Awareness Awareness of Need for Assistance at Home Decreased Awareness Ability to Problem Solve Emergency Unable to Problem Solve Situations Home Safety Comments Pt has dementia and relies on her for all needs. Medication Management Medication Management Caregiver Administers Money Management Money Management Caregiver Provides Assistance Meal Preparation Meal Preparation Caregiver Provides Assist Laboratory Technologist Laboratory Technologist Caregiver Provides Assist M6 OT- IP Functional Cognition Start: 07/18/24 13:02 Freq: Status: Active Protocol: Document 07/24/24 11:12 [facility] (Rec: 07/24/24 11:36 [facility] Desktop) Cognitive Factors Limiting Selfcare Function Cognitive Ability Level of Alertness Alert,Confusional State Patient Orientation Name Attention Span Ability Capable of Focused Attention, Capable of Sustained Attention Ability to Follow Commands Able to Follow One Step Commands with Increased Time, Able to Follow One Step Commands with Repetition Cognitive Comments Cognitive Assessment Comments Pt able to follow simple commands better today. Pt was cooperative and pleasant. M7 OT- IP Mobility and Balance Start: 07/18/24 13:02 Freq: Status: Active Protocol: Document 07/24/24 11:12 [facility] (Rec: 07/24/24 11:36 [facility] Desktop) OT- Bed Mobility Assessment Supine to Sit Supine to Sit Assist Maximum Assistance,2 Person Assistance Scooting Scooting to Edge of Bed Maximum Assistance,1 Person Assistance,2 Person Assistance OT-Transfer Assessment Sit to and From Stand Sit to and from Stand Moderate Assistance,Maximum Assistance,2 Person Assistance Transfers Transfer Ability Moderate Assistance,Maximum Assistance,2 Person Assistance Technique Transfer Destination Bed,Chair Transfer Technique Stand Step Pivot Devices Transfer Assistive Devices Gait Belt,Front Wheeled Walker Comments Mobility Comments MAXAX 2 to for bed mobility. MODA/MAXAX x2 to stand to the FWW. Pt not able to take steps and therefore standpivot transfer with MAX XA 2 performed. OT- Balance Assessment Sitting Balance and Reactions Static Sitting Balance Ability Fair Dynamic Sitting Balance Ability Fair M8 OT- IP Objective Assessments Start: 07/18/24 13:02 Freq: Status: Active Protocol: Document 07/19/24 14:46 [facility] (Rec: 07/19/24 14:58 [facility] Desktop) OT-Muscle Tone Assessment Comments Muscle Tone Comments Pt resisting movements and guarding from allowing therapists to work with her. Noted right shoulder catching at times during gentle ROM. M9 OT- IP Assessment and Plan Start: 07/18/24 13:02 Freq: Status: Active Protocol: Document 07/24/24 11:12 [facility] (Rec: 07/24/24 11:36 [facility] Desktop) OT Summary Assessment and Plan Potential Rehabilitation Potential Fair Analytic Complexity at Evaluation High Summary OT Impairments Pain,Range of Motion,Strength, Balance,Functional Cognition, Functional Mobility,Self- Feeding,Grooming,Dressing, Toileting,Bathing,Toilet Transfers,Shower Transfers, Activity Tolerance Progress Towards Goals Slow Progress due to Pain,Slow Progress due to Medical Issues,Slow Progress due to Activity Tolerance,Slow Progress due to Cognition Assessment Summary Pt able to participate with transfer ,grooming, and with oral care needs. Pt to go to skilled rehab when medically stable. Goals Self-Feeding Goal Standby Assistance Grooming Goal Standby Assistance Dressing Goal Standby Assistance Toileting Goal Moderate Assistance Bathing Goal Moderate Assistance Toilet Transfer Goal Moderate Assistance Shower Transfer Goal Moderate Assistance Days to Meet Goals 30 Frequency of Treatment Other frequency 5x/week Treatment Plan OT Treatment Plan ADL Training,Functional Cognition Training,Functional Mobility,Patient/Family Education,Discharge Planning Other Treatment Recommendations and Next Pt to be able to do oral care Treatment Focus need while sitting up with sba Discharge Recommendations OT Discharge Recommendations SNF Rehab Transportation Needs at Discharge Wheelchair/Cabulance
--- NOTE | 2024-07-24 10:04 | DIET.PN1 ---
Dietary Progress Note Assessment: Spoke to RN, pt tolerating PO intake, eating breakfast and Ensure. No coughing with food or pills. Will continue to monitor PO tolerance. Ht: 167.64 cm Wt: 64.5 kg BMI: 23.6 Last BM: () MNA: Дмитрий Score: 16 Diet: 07/17/24 Dinner General (Regular) Diet Diet Modifications: Nutrition Percent Meal Consumed 75% 07/23/24 18:00 Percent Meal Consumed 25% 07/23/24 13:55 Labs: RBC 3.75 X10^6/uL (4.0-5.2) L 07/18/24 04:50 Hgb 11.7 g/dL (12.0-16.0) L 07/18/24 04:50 Hct 35.0 % (36-46) L 07/18/24 04:50 Creatinine 0.62 mg/dL (0.52-1.04) 07/18/24 04:50 Electronically Signed by: Sara Goins 07/24/24 10:04 Clinical Dietitian [address] [id number]
--- NOTE | 2024-07-24 13:03 | P.PN_ITS ---
Subjective Subjective Interval history: 84-year-old female with Alzheimer's dementia, GERD, osteopenia, hyperlipidemia who is now postoperative day 4 from a left hip cemented unipolar secondary to an acute fracture Her hospital course has been complicated by agitation related to attempts at mobilization and physical therapy. She denies significant pain to nursing and has refused Tylenol and ibuprofen. Nursing reports she appears anxious when she attempts to bear weight. Patient denies any complaints for me. She specifically denies any pain today. She is very pleasant and cooperative. Exam Vital Signs (past 8 hours): - 07/24/24 08:00 Temperature 99 F Pulse Rate 67 Respiratory Rate 20 Blood Pressure 189/84 H Pulse Oximetry 94 Fraction of Inspired Oxygen 28 SaO2/FiO2 Ratio 353 Oxygen Delivery Method Room Air Oxygen Flow Rate 0 Narrative Exam Narrative: GEN: Elderly female, initially sleeping in bed, then awake, pleasant and cooperative HEENT:NC, Face symmetric EXTR: warm, well perfused, no C/C/E SKIN: warm and dry, no rash NEURO: Alert, nonfocal Objective Labs 07/18/24 04:50 07/18/24 04:50 [facility] Medical History 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 Elevated blood pressure reading without diagnosis of hypertension Urinary incontinence Menopausal syndrome Osteopenia GERD without esophagitis Mixed hyperlipidemia Social History details: (Christopher), 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 Left femoral neck fracture due to ground level fall, likely pathologic due to underlying osteoporosis. Now s/p left hip cemented unipolar. PT has recommended SNF for rehab. At this point, [facility] is monitoring her progress with therapies and has not yet accepted her. 2. Dementia, moderately advanced. Eating very little overall, but she did have 50% of 1 meal today. She was able to participate in physical therapy today. - on seroquel BID, will increase nightly seroquel to assist with sleep so currently 12.5 mg AM, 25 mg PM. 3. Elevated blood pressure, Blood pressures normotensive today. 4. GERD On omeprazole on an outpatient basis. 5. UTI, Chaudhry-sensitive E coli Completed 3/3 days of IV Rocephin. Code status DNR Prophylaxis Aspirin b.i.d. ordered and she is taking it intermittently Disposition senior living facility for rehab has been recommended Time-Based Coding :: [TOTAL MINUTES] spent with patient and on the chart (including review of chart, obtaining history, exam, reviewing outside data, placing orders, documenting exam and treatment plan, and counseling patient) on [DATE]. Quality VTE Deep Vein Thrombosis/Pulmonary Embolism Present on Admission: No
[2024-07-24] MEDS: ACETAMINOPHEN 325 MG TABLET 650 MG PO ×2 (13:14→18:56)
[2024-07-24 20:00] VITALS: BP 155/84; PULSE 73; RESP 20; TEMP 36.7; O2SAT 97
[2024-07-24] MEDS: QUETIAPINE 25 MG TABLET PO (20:39)
[2024-07-25] MEDS: ACETAMINOPHEN 325 MG TABLET 650 MG PO (05:58)
[2024-07-25] MEDS: IBUPROFEN 400 MG TABLET PO (05:58)
--- NOTE | 2024-07-25 07:26 | CM.DPC ---
DCP Cont. Reviewed EMR and team rounds for status updates. Pt has been medically cleared for d/c to [facility] today, they will transport her at 11:30am. PASSAR and d/c clinicals will be faxed once we receive them from the provider. CERTIFIED MEDICAL CODING SPECIALIST will also update spouse. No further CM d/c assistance/coordination needs are indicated at this time. Spoke with Maik at [facility]. They have assinged an initial case fitter, but will switch it to the SNF team once she's discharged to continue the process of her Medicaid LTC application.
[2024-07-25 07:52] VITALS: BP 156/74; PULSE 69; RESP 20; TEMP 37.6; O2SAT 97
[2024-07-25] MEDS: VIT C/E/ZN/COPPR/LUTEIN/ZEAXAN CAPSULE 1 CAP PO (08:33)
[2024-07-25] MEDS: ASPIRIN EC 81 MG TABLET PO (08:33)
[2024-07-25] MEDS: ASCORBIC ACID 500 MG TABLET 1000 MG PO (08:34)
[2024-07-25] MEDS: QUETIAPINE 25 MG TABLET 12.5 MG PO (08:34)
[2024-07-25] MEDS: DOCUSATE 100 MG CAPSULE PO (08:34)
[2024-07-25] MEDS: FISH OIL 1,000 MG CAPSULE 1000 MG PO (08:34)
--- NOTE | 2024-07-25 09:57 | PM.DS.1 ---
History of Present Illness History of Present Illness Date Patient Seen: 07/25/24 Time Patient Seen: 09:58 Chief complaint: Fall/Hip Pain Narrative: Per admitting provider, This is a pleasant 84-year-old female who lives with her . She has some mild dementia. She did fall and injured her left hip. He was able to get her up to a chair and the couch and thought that hopefully it would just get better but then he noticed that she could not walk and she had incapacitating hip pain. She was brought to the emergency room for evaluation. She seemed to be in her normal state of health prior to the fall. She did not seem to have any increased confusion or chest pain or other symptoms prior to the fall. She lives with her and goes to a dementia daycare facility during the day. Discharge Providers Provider Date of admission: 07/15/24 10:24 Discharge Date: 07/25/24 Primary care physician: Curt Enriquez MD Consults: 07/15/24 09:48 Consult to [facility] [place] Senior Clinical Research Scientist Stat Comment: Senior Clinical Research Scientist Consult needed for:: Unable to care for self 07/17/24 15:04 Consult to Anesthesiology Routine Comment: Consulting Provider: Anesthesiologist Reason for consultation: Regional block for post operative pain control 07/17/24 18:19 Consult to Discharge Planning Routine Comment: Consult to Occupational Therapy Evaluate & Treat Comment: Physician Instructions: Evaluate and treat Consult to Physical Therapy Evaluate & Treat Comment: Physician Instructions: post op ANCELMO protocol Discharge provider: Car Villegas DO Summary Hospital Course Discharge Diagnosis: 1. Left femoral neck fracture due to ground level fall, likely pathologic due to underlying osteoporosis. 2. Dementia, moderately advanced. 3. Elevated blood pressure, POA, improved 4. GERD 5. UTI, Chaudhry-sensitive E coli 6. Acute post operative metabolic encephalopathy, possibly related to anesthesia / surgery, not present on admission, improving Hospital Course: This is an 84 year old female with PMH of GERD, dementia. On admission she was noted to have an acute cystitis which was treated with 3 days of ceftriaxone. She underwent left hip repair with orthopedic surgery. She was quite somnolent then intermittently agitated after surgery. After some time she began to improve and became more cooperative and was able to work with therapies. During her confusion, seroquel was increased to 25 mg at bedtime, and 12.5 mg during the day. Continue posterior hip precautions and pain control as needed after discharge. Continue 6 weeks of aspirin BID for DVT prophylaxis per orthopedic surgery. Patient was transferred to SNF once she was able to improve with therapy to the point of being at least a 2 person assist. Time Spent with Patient Time spent: Greater than 30 minutes Exam Vital Signs (past 8 hours): - 07/25/24 07:52 Temperature 99.7 F H Pulse Rate 69 Respiratory Rate 20 Blood Pressure 156/74 H Pulse Oximetry 97 Oxygen Flow Rate 0 Fraction of Inspired Oxygen 28 SaO2/FiO2 Ratio 353 Oxygen Delivery Method Room Air Oxygen Flow Rate 0 Narrative Exam Narrative: GEN: Elderly female, initially sleeping in bed, then awake, pleasant and cooperative HEENT:NC, Face symmetric EXTR: warm, well perfused, no C/C/E SKIN: warm and dry, no rash NEURO: Alert, nonfocal Objective Labs 07/18/24 04:50 07/18/24 04:50 PFSH Medical History 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 Elevated blood pressure reading without diagnosis of hypertension Urinary incontinence Menopausal syndrome Osteopenia GERD without esophagitis Mixed hyperlipidemia Social History details: (Christopher), 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 Course complicated by encephalopathy which is improving. Discharge orders & Medications Prescriptions: New acetaminophen 325 mg Tablet 650 mg PO Q6H Qty: 90 0RF aspirin 81 mg Tablet,Delayed Release (Dr/Ec) 81 mg PO BID 40 Days Qty: 80 0RF docusate sodium 100 mg Capsule 100 mg PO BID Qty: 60 0RF polyethylene glycol 3350 17 gram Powder In Packet 17 g PO DAILY PRN (Reason: Constipation) Qty: 14 0RF ibuprofen 400 mg Tablet 400 mg PO Q4H Qty: 60 0RF oxycodone 5 mg Tablet 5 mg PO Q3H PRN (Reason: Pain, Moderate (4-6)) 7 Days Qty: 20 0RF quetiapine 25 mg Tablet 12.5 mg PO DAILY Qty: 15 0RF quetiapine 25 mg Tablet 25 mg PO BEDTIME Qty: 30 0RF Continued lysine 500 mg tablet 500 mg PO DAILY omega-3 fatty acids 1,000 mg capsule 1,000 mg PO DAILY zinc 50 mg tablet 50 mg PO DAILY selenium 200 mcg tablet 200 mcg PO DAILY cyanocobalamin (vitamin B-12) 1,000 mcg capsule 1,000 mcg PO DAILY PreserVision AREDS-2 250-90-40-1 mg capsule 1 tab PO BID ascorbic acid (vitamin C) 1,000 mg tablet 1,000 mg PO BID cholecalciferol (vitamin D3) 125 mcg (5,000 unit) capsule 125 mcg PO Q OTHER DAY coenzyme Q10 [CoQ-10] 100 mg capsule 100 mg PO DAILY ginkgo biloba 1 cap PO BID magnesium citrate 100 mg capsule 400 mg PO DAILY omeprazole 20 mg capsule,delayed release(DR/EC) 20 mg PO DAILY Qty: 90 3RF turmeric 1 cap PO DAILY Disabled Parking Permit 1 ea Not Applicable DAILY Qty: 1 0RF Follow up/Referrals: Curt Enriquez MD [Primary Care Provider] - Discharge Health Status Precautions: [place] Diet/Activity/Treatments Diet: Diet as Tolerated Liquid consistency: Normal/Thin Food texture: Regular Activity: Posterior hip precautions, WBAT. [facility] Reason for rehabilitation: Post-operative therapy Rehab type: Physical therapy and Occupational therapy Visit Report/Discharge Packet Instructions: DI for Hip Replacement Stand Alone Forms: Patient Portal/API Discharge Data Primary Care Provider: Curt Enriquez V Quality VTE Deep Vein Thrombosis/Pulmonary Embolism Present on Admission: No
--- NOTE | 2024-07-25 10:05 | OT.IPNOTE ---
Awaiting consult for ortho per hospitalist, okay to discharge therapy eval orders at this time.
--- NOTE | 2024-07-25 12:54 | PC.NURSE ---
Shift and discharge note: patient pleasantly confused and following directions. BM today. Hoyered to w/c. at bedside. left via w/c with facility transport. Called report to Justin at [facility]- all questions answered.
== END 2024-07-25 11:46 | DRG 521 ==
LOC: ED 09:35 → AC 10:24 → ICU 11:18 → AC 07-16 22:06
PROVIDERS: Internal Medicine; Orthopaedic Surgery; Admitting Provider Internal Medicine; Emergency Provider Emergency Medicine; PCP Internal Medicine; Referring Provider Emergency Medicine; Visit Provider Internal Medicine
PROC: 0SRS0JZ Replacement of Left Hip Joint, Femoral Surface with Synthetic Substitute, Open Approach (ICD-10-PCS; CPT 27125; principal; 2024-07-17 16:15)
DX: M80.852A Other osteoporosis with current pathological fracture, left femur, initial encounter for fracture (principal); G92.8 Other toxic encephalopathy; N30.00 Acute cystitis without hematuria; Z66 Do not resuscitate; K21.9 Gastro-esophageal reflux disease without esophagitis; B96.20 Unspecified Escherichia coli [E. coli] as the cause of diseases classified elsewhere; T41.45XA Adverse effect of unspecified anesthetic, initial encounter; G30.9 Alzheimer's disease, unspecified; F02.B0 Dementia in other diseases classified elsewhere, moderate, without behavioral disturbance, psychotic disturbance, mood disturbance, and anxiety; W18.30XA Fall on same level, unspecified, initial encounter; Z88.5 Allergy status to narcotic agent; Z88.0 Allergy status to penicillin; Z88.7 Allergy status to serum and vaccine; R03.0 Elevated blood-pressure reading, without diagnosis of hypertension; E78.2 Mixed hyperlipidemia
CPT/HCPCS: 36415; 71045; 72170; 73502; 80048; 80053; 81001; 85025; 85610; 85730; 87077; 87086; 87186; 87797; 93005; 93010; 94762; 96374; 97110; 97163; 97167; 97530; 97535; 99284; C1776; A9270; C1713; J0131; J0171; J0360; J0666; J0690; J0696; J1100; J1171; J1956; J2359; J2405; J2704; J3010

== ENCOUNTER 2024-08-27 12:05 | Emergency (ER) | payer MEDICARE, SELFPAY ==
[2024-07-15 10:37] VITALS: BMI 23.6
[2024-08-27 12:15] VITALS: BP 133/61; PULSE 68; RESP 18; TEMP 36.2; O2SAT 97
[2024-08-27 13:25] LABS: Add Manual Diff / Slide Review NO; Basophils Absolute Auto 100 /uL (0-100); Basophils Percent Auto 0.7 % (0-2); Eosinophils Absolute Auto 0 /uL (0-450); Eosinophils Percent Auto 0.4 % (2-4); Hematocrit 38.2 % (36-46); Hemoglobin 12.6 g/dL (12.0-16.0); Lymphocytes Absolute Auto 1900 /uL (1100-4500); Lymphocytes Percent Auto 18.7 % (25-40); Mean Corpuscular HGB Conc 33.1 % (30-36); Mean Corpuscular Hemoglobin 30.1 PG (26-34); Monocytes Absolute Auto 1000 /uL (0-900); Monocytes Percent Auto 9.7 % (3-14); Neutrophils Absolute Auto 7000 /uL (1500-7000); Neutrophils Percent Auto 70.5 % (50-75); Platelet Count 296 X10^3/uL (150-400); Red Blood Cell Count 4.19 X10^6/uL (4.0-5.2); Red Cell Distribution Width 14.9 % (11.6-14.8); White Blood Cell Count 9.9 X10^3/uL (4.5-11.0)
[2024-08-27 13:38] LABS: Alanine Aminotransferase 23 IU/L (<35); Albumin 4.1 g/dL (3.5-5.0); Albumin Globulin Ratio 1.4 (1.0-2.8); Alkaline Phosphatase 106 U/L (38-126); Aspartate Aminotransferase 32 IU/L (14-36); BUN Creatinine Ratio 18.8 (6-22); Bilirubin Total 0.7 mg/dL (0.2-1.3); Blood Urea Nitrogen 18 mg/dL (7-17); Calcium 9.8 mg/dL (8.4-10.2); Carbon Dioxide 21 mmol/L (22-32); Chloride 104 mmol/L (98-107); Estimated Glomerular Filt Rate 58 mL/min (>60); Glucose 147 mg/dL (70-99); HEMOLYSIS 17 (0-50); Magnesium 1.8 mg/dL (1.6-2.3); Potassium 3.6 mmol/L (3.4-5.1); Sodium 136 mmol/L (137-145); Total Protein 7.1 g/dL (6.3-8.2)
--- NOTE | 2024-08-27 13:46 | ED.GENADULT ---
HPI - General Adult General Chief complaint: Syncope Stated complaint: unwitnessed syncope Time Seen by Provider: 08/27/24 13:04 Source: patient, family and EMS Mode of arrival: EMS Limitations: other (Dementia) History of Present Illness HPI narrative: Patient is a 84-year-old female with history of dementia, recent hip fracture currently at rehab presenting with concern for possible syncopal episode. Per report, patient was noted by rehab staff to have an episode where in she was found thought to be sleeping but was relatively unresponsive they were concerned that she may not be breathing however she did spontaneously return to baseline level of consciousness and without any mental status changes. Patient is unable to provide further clarification regarding today's events. Her who is at bedside states that she is currently at her baseline mental status, she has been eating and drinking normally. No reported recent illness, no new trauma, head strike, no seizure activity. Related Data Home Medications Medication Instructions Recorded Confirmed ascorbic acid (vitamin C) 1,000 mg 1,000 mg PO BID 12/21/21 07/15/24 tablet cholecalciferol (vitamin D3) 125 125 mcg PO Q OTHER DAY 12/21/21 07/15/24 mcg (5,000 unit) capsule coenzyme Q10 100 mg capsule 100 mg PO DAILY 12/21/21 07/15/24 (CoQ-10) cyanocobalamin (vitamin B-12) 1,000 mcg PO DAILY 12/21/21 07/15/24 1,000 mcg capsule ginkgo biloba 1 cap PO BID 12/21/21 07/15/24 lysine 500 mg tablet 500 mg PO DAILY 12/21/21 07/15/24 magnesium citrate 100 mg capsule 400 mg PO DAILY 12/21/21 07/15/24 omega-3 fatty acids 1,000 mg 1,000 mg PO DAILY 12/21/21 07/15/24 capsule selenium 200 mcg tablet 200 mcg PO DAILY 12/21/21 07/15/24 vit C 250 mg-vit E 90 mg-zinc 40 1 tab PO BID 12/21/21 07/15/24 mg-copper 1 [id number] capsule (PreserVision AREDS-2) zinc 50 mg tablet 50 mg PO DAILY 12/21/21 07/15/24 turmeric 1 cap PO DAILY 12/13/23 04/20/25 Previous Rx's Medication Instructions Recorded omeprazole 20 mg capsule,delayed 20 mg PO DAILY #90 caps 12/21/21 release Disabled Parking Permit 1 ea Not Applicable DAILY #1 ea 05/25/23 acetaminophen 325 mg tablet 650 mg (2 x 325 mg) PO Q6H #90 tabs 07/25/24 aspirin 81 mg tablet,delayed 81 mg PO BID 40 days #80 tabs 07/25/24 release docusate sodium 100 mg capsule 100 mg PO BID #60 caps 07/25/24 ibuprofen 400 mg tablet 400 mg PO Q4H #60 tabs 07/25/24 polyethylene glycol 3350 17 gram 17 g PO DAILY PRN Constipation #14 07/25/24 oral powder packet ea quetiapine 25 mg tablet 12.5 mg (1/2 x 25 mg) PO DAILY #15 07/25/24 tabs quetiapine 25 mg tablet 25 mg PO BEDTIME #30 tabs 07/25/24 Allergies Allergy/AdvReac Type Severity Reaction Status Date / Time Penicillins Allergy Severe Anaphylaxis Verified 05/25/23 07:43 Tetanus Vaccines and Toxoid Allergy Severe Anaphylaxis Verified 05/25/23 07:43 morphine Allergy Mild rash Verified 05/25/23 07:43 Review of Systems Review of Systems Narrative: Unable to obtain due to patient's underlying dementia ROS Unobtainable: All systems reviewed & are unremarkable except as noted in HPI and below Patient History Medical History 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 Elevated blood pressure reading without diagnosis of hypertension Urinary incontinence Menopausal syndrome Osteopenia GERD without esophagitis Mixed hyperlipidemia Social History details: (Christopher), two sons, 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 household members: spouse alcohol intake: never Exam Initial Vital Signs Initial Vital Signs: Vital Signs Temperature 97.2 F L 08/27/24 12:15 Pulse Rate 68 08/27/24 12:15 Respiratory Rate 18 08/27/24 12:15 Blood Pressure 133/61 08/27/24 12:15 Pulse Oximetry 97 08/27/24 12:15 Oxygen Delivery Method Room Air 08/27/24 12:15 Const General: No cooperative HENMT Head: normocephalic and atraumatic Face and sinus: face symmetric Resp Effort & Inspection: normal respiratory effort and no respiratory distress Auscultation: no rhonchi and no wheezes Cardio Rate: regular rate Rhythm: regular rhythm Pulses: normal peripheral pulses GI Inspection: non-distended Palpation: soft Back/Spine/Pelvis Cervical Spine: cervical ROM normal Neuro General: patient alert and no focal motor deficits Extrem General: normal to inspection and full ROM Psych Appearance: well kempt Mental Status: other (at baseline) Mood: other (at baseline) Course Orders Ordered: ED Orders 08/27/24 12:51 EKG-12 Lead Stat 08/27/24 13:19 Complete Blood Count AUTO DIFF Stat Comprehensive Metabolic Panel Stat Magnesium Stat Troponin I Stat Vital Signs Vital signs: Vital Signs - 8 hr 08/27/24 12:15 Temperature 97.2 F L Pulse Rate 68 Respiratory Rate 18 Blood Pressure 133/61 Pulse Oximetry 97 Oxygen Delivery Method Room Air Medical Decision Making Medical Records Medical records reviewed: Yes I reviewed the patient's medical records. Lab Data Lab results reviewed: Yes I reviewed the patient's lab results. 08/27/24 13:19 08/27/24 13:19 Labs: Lab Results 08/27/24 Range/Units 13:19 WBC 9.9 (4.5-11.0) X10^3/uL RBC 4.19 (4.0-5.2) X10^6/uL Hgb 12.6 (12.0-16.0) g/dL Hct 38.2 (36-46) % MCV 91.0 (80-100) fL MCH 30.1 (26-34) PG MCHC 33.1 (30-36) % RDW 14.9 H (11.6-14.8) % Plt Count 296 (150-400) X10^3/uL Neut % (Auto) 70.5 (50-75) % Lymph % (Auto) 18.7 L (25-40) % [place] % (Auto) 9.7 (3-14) % Eos % (Auto) 0.4 L (2-4) % Baso % (Auto) 0.7 (0-2) % Neut # (Auto) 7000 (4160-2842) /uL Lymph # (Auto) 1900 (1289-3803) /uL [place] # (Auto) 1000 H (0-900) /uL Eos # (Auto) 0 (0-450) /uL Baso # (Auto) 100 (0-100) /uL Sodium 136 L (137-145) mmol/L Potassium 3.6 (3.4-5.1) mmol/L Chloride 104 (98-107) mmol/L Carbon Dioxide 21 L (22-32) mmol/L BUN 18 H (7-17) mg/dL Creatinine 0.96 (0.52-1.04) mg/dL Estimated GFR 58 L (>60) mL/min BUN/Creatinine Ratio 18.8 (6-22) Glucose 147 H (70-99) mg/dL Calcium 9.8 (8.4-10.2) mg/dL Magnesium 1.8 (1.6-2.3) mg/dL Total Bilirubin 0.7 (0.2-1.3) mg/dL AST 32 (14-36) IU/L ALT 23 (<35) IU/L Alkaline Phosphatase 106 (38-126) U/L Troponin I < 0.012 (0.01-0.034) ng/mL Total Protein 7.1 (6.3-8.2) g/dL Albumin 4.1 (3.5-5.0) g/dL Globulin 3.0 (1.7-4.1) g/dL Albumin/Globulin Ratio 1.4 (1.0-2.8) ECG Data Attestation: I personally reviewed and interpreted this ECG as follows: Prior ECG tracings: available for review Interpretation: EKG demonstrating sinus rhythm at a rate of 76, [place] interval of 172, QTC 468, notable for premature atrial complexes, otherwise with changes consistent with age indeterminate septal infarct, this is similar when compared to prior from 07/15/2024 MDM Narrative Medical decision making narrative: History and exam as above. PResenting with concern for brief episode of syncope or altered mental status. Patient has now returned to baseline. Differential for presentation includes syncope, unlikely seizure without seizure activity noted by staff, no new focal deficits to suggest TIA/CVA. Will plan to evaluate for possible anemia, electrolyte abnormality, arrhythmia. Following shared decision making with patient at bedside and given her reluctance/difficulty participating with medical evaluation, will defer extensive workup that may require sedation for patient to tolerate. Labs without acute abnormality and ecg demonstrating sinus rhythm. Patient and eager for discharge and to return home/to rehab facility. discussed follow up plan and return precautions. 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 Evaluation here including examination, lab work, and EKG was overall reassuring and did not demonstrate any evidence of an acute process. We are reassured that she has returned to her baseline mental status. We do recommend close follow up with her primary care provider, as she will likely need additional workup that she has not yet been able to obtain. If she develops a recurrent syncopal episodes or fainting, is not at her baseline mental status, is having new weakness, slurred speech, chest pain, fevers, other symptoms that are concerning to you, please return to the emergency department for further evaluation. Prescriptions: No Action lysine 500 mg tablet 500 mg PO DAILY omega-3 fatty acids 1,000 mg capsule 1,000 mg PO DAILY zinc 50 mg tablet 50 mg PO DAILY selenium 200 mcg tablet 200 mcg PO DAILY cyanocobalamin (vitamin B-12) 1,000 mcg capsule 1,000 mcg PO DAILY PreserVision AREDS-2 250-90-40-1 mg capsule 1 tab PO BID ascorbic acid (vitamin C) 1,000 mg tablet 1,000 mg PO BID cholecalciferol (vitamin D3) 125 mcg (5,000 unit) capsule 125 mcg PO Q OTHER DAY coenzyme Q10 [CoQ-10] 100 mg capsule 100 mg PO DAILY ginkgo biloba 1 cap PO BID magnesium citrate 100 mg capsule 400 mg PO DAILY omeprazole 20 mg capsule,delayed release(DR/EC) 20 mg PO DAILY Qty: 90 3RF turmeric 1 cap PO DAILY Disabled Parking Permit 1 ea Not Applicable DAILY Qty: 1 0RF acetaminophen 325 mg Tablet 650 mg PO Q6H Qty: 90 0RF aspirin 81 mg Tablet,Delayed Release (Dr/Ec) 81 mg PO BID 40 Days Qty: 80 0RF docusate sodium 100 mg Capsule 100 mg PO BID Qty: 60 0RF polyethylene glycol 3350 17 gram Powder In Packet 17 g PO DAILY PRN (Reason: Constipation) Qty: 14 0RF ibuprofen 400 mg Tablet 400 mg PO Q4H Qty: 60 0RF quetiapine 25 mg Tablet 12.5 mg PO DAILY Qty: 15 0RF quetiapine 25 mg Tablet 25 mg PO BEDTIME Qty: 30 0RF Referrals: Curt Enriquez MD [Primary Care Provider] -
[2024-08-27 13:49] LABS: Troponin I < 0.012 ng/mL (0.01-0.034)
--- NOTE | 2024-08-27 14:06 | EKG_ITS ---
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
== END 2024-08-27 14:34 ==
PROVIDERS: Emergency Provider Student in an Organized Health Care Education/Training Program; PCP Internal Medicine
DX: G30.9 Alzheimer's disease, unspecified (principal); R55 Syncope and collapse
CPT/HCPCS: 80053; 83735; 84484; 85025; 93005; 99281; 99284